=== PATIENT | male | born 1940 | race Caucasian/White ===

== ENCOUNTER → 2017-10-16 08:15 | Outpatient (CLI) | payer MEDICARE, OTHER, SELFPAY ==
[2017-01-21 09:20] VITALS: BMI 26.8
[2017-10-16 08:47] LABS: Absolute Lymphocyte Count 1.48 X10^3/ul (0.83-4.51); Absolute Neutrophil Count 5.4 X10^3/uL (2.0-7.7); Basophil# 0.02 X10^3/uL; Basophil% 0.2 % (0-1); Eosinophil# 0.26 X10^3/uL; Eosinophils% 3.2 % (0-5); Hematocrit 48.7 % (40-54); Lymphocyte # 1.48 X10^3/ul (4.0); Lymphocyte % 18.5 % (19-41); Mean Corp Hgb Conc 32.9 g/gl (32-36); Mean Corpuscular Hgb 29.6 pg (27.0-32.0); Mean Corpuscular Volume 90.2 fL (80-94); Mean Platelet Vol. 12.1 fl (6.2-12.0); Monocyte# 0.81 X10^3/uL; Monocyte% 10.1 % (0-10); Neutrophil # 5.44 X10^3/uL (2.7-7.7); Neutrophil % 67.9 % (47-70); Platelet Count 145 K/mm3 (150-450); RBC Distribution Width CV 14.9 % (11.6-14.6); RBC Distribution Width SD 48.6 fl (35.1-43.9)
[2017-10-16 08:48] LABS: POSITIVE COUNT NO; POSITIVE DIFFERENTIAL NO; POSITIVE MORPHOLOGY NO
[2017-10-16 09:09] LABS: Microalbumin,Random Urine 11.8 mg/L (NO RANGE EST.); Microalbumin:Creatinine Ratio 7.1 mg/g CRE (<30 mg/g CRE)
[2017-10-16 09:09] LABS: Hemoglobin A1c 6.3 % (4.2-6.3)
[2017-10-16 09:25] LABS: ALB/GLOB Ratio 0.9 RATIO (0.9-2.4); AST(SGOT) 26 U/L (15-37); Alanine Aminotransfer ALT/SGPT 30 U/L (16-61); Albumin, Serum 3.9 g/dL (3.2-5.0); Alkaline Phosphatase 76 U/L (45-117); Anion Gap 8 (5-15); BUN 31 mg/dL (7-18); BUN/Creat Ratio 25.6 RATIO (10-20); Bilirubin, Direct 0.27 mg/dL (0.00-0.30); Calcium,Total 9.8 mg/dL (8.5-10.1); Chloride 101 mmol/L (98-107); Cholesterol 90 mg/dL (200); Creatinine, Serum 1.21 mg/dL (0.70-1.30); EST Glomerular Filtration Rate 62 mL/min (>60); Est Glom Filt Rate - Afr Amer 74 mL/min (>60); Globulin 4.4 g/dL (2.2-4.2); Glucose 122 mg/dL (74-106); High Density Lipoprotein 36 mg/dL; Potassium 4.3 mmol/L (3.5-5.1); Protein, Total 8.3 g/dL (6.4-8.2); Sodium Level 139 mmol/L (136-145); T4 Free Direct 1.24 ng/dL (0.76-1.46); Thyroid Stim Hormone (TSH) 2.27 uIU/mL (0.358-3.74); Triglycerides 98 mg/dL; Very Low Density Lipoprotein 20 mg/dL (5-40)
== END ==
PROVIDERS: Internal Medicine Cardiovascular Disease; Family Provider Family Medicine; PCP Family Medicine; Visit Provider Family Medicine
DX: E11.22 Type 2 diabetes mellitus with diabetic chronic kidney disease (principal); E03.9 Hypothyroidism, unspecified; E78.00 Pure hypercholesterolemia, unspecified
CPT/HCPCS: 36415; 80053; 80061; 82043; 82248; 82570; 83036; 84439; 84443; 85025

== ENCOUNTER → 2018-04-08 08:02 | Outpatient (CLI) | payer MEDICARE, OTHER, SELFPAY ==
[2017-01-21 09:20] VITALS: BMI 26.8
[2018-04-08 08:47] LABS: AST(SGOT) 28 U/L (15-37); Alanine Aminotransfer ALT/SGPT 29 U/L (16-61); Albumin, Serum 3.8 g/dL (3.2-5.0); Alkaline Phosphatase 73 U/L (45-117); Bilirubin, Direct 0.19 mg/dL (0.00-0.30); Cholesterol 88 mg/dL (200); High Density Lipoprotein 40 mg/dL; Protein, Total 7.8 g/dL (6.4-8.2); Triglycerides 85 mg/dL; Very Low Density Lipoprotein 17 mg/dL (5-40)
== END ==
PROVIDERS: Family Provider Family Medicine; PCP Family Medicine; Visit Provider Internal Medicine Cardiovascular Disease
DX: E78.5 Hyperlipidemia, unspecified (principal); Z79.899 Other long term (current) drug therapy
CPT/HCPCS: 36415; 80061; 80076

== ENCOUNTER → 2018-07-30 08:00 | Outpatient (CLI) | payer MEDICARE, OTHER, SELFPAY ==
[2017-01-21 09:20] VITALS: BMI 26.8
[2018-07-30 09:35] LABS: Absolute Lymphocyte Count 1.75 X10^3/ul (0.83-4.51); Basophil# 0.01 X10^3/uL; Basophil% 0.1 % (0-1); Eosinophil# 0.25 X10^3/uL; Eosinophils% 2.9 % (0-5); Hematocrit 48.5 % (40-54); Hemoglobin 15.8 g/dl (13.0-16.5); Lymphocyte # 1.75 X10^3/ul (4.0); Lymphocyte % 20.1 % (19-41); Mean Corp Hgb Conc 32.6 g/gl (32-36); Mean Corpuscular Hgb 30.2 pg (27.0-32.0); Mean Corpuscular Volume 92.6 fL (80-94); Mean Platelet Vol. 11.9 fl (6.2-12.0); Neutrophil # 5.97 X10^3/uL (2.7-7.7); Neutrophil % 68.7 % (47-70); Platelet Count 163 K/mm3 (150-450); RBC Distribution Width CV 13.4 % (11.6-14.6); RBC Distribution Width SD 44.3 fl (35.1-43.9); Red Blood Count 5.24 M/mm3 (4.6-6.2); White Blood Count 8.7 K/mm3 (4.4-11.0)
[2018-07-30 09:45] LABS: POSITIVE COUNT NO; POSITIVE DIFFERENTIAL NO; POSITIVE MORPHOLOGY NO
[2018-07-30 09:54] LABS: Microalbumin,Random Urine 16.9 mg/L (NO RANGE EST.); Microalbumin:Creatinine Ratio 11.4 mg/g CRE (<30 mg/g CRE)
[2018-07-30 10:09] LABS: ALB/GLOB Ratio 0.8 RATIO (0.9-2.4); AST(SGOT) 27 U/L (15-37); Alanine Aminotransfer ALT/SGPT 34 U/L (16-61); Albumin, Serum 3.9 g/dL (3.2-5.0); Alkaline Phosphatase 81 U/L (45-117); Anion Gap 9 (5-15); BUN 30 mg/dL (7-18); BUN/Creat Ratio 28.3 RATIO (10-20); Calcium,Total 9.8 mg/dL (8.5-10.1); Chloride 99 mmol/L (98-107); Creatinine, Serum 1.06 mg/dL (0.70-1.30); EST Glomerular Filtration Rate 72 mL/min (>60); Est Glom Filt Rate - Afr Amer 87 mL/min (>60); Globulin 4.6 g/dL (2.2-4.2); Glucose 127 mg/dL (74-106); Potassium 4.3 mmol/L (3.5-5.1); Protein, Total 8.5 g/dL (6.4-8.2); Sodium Level 139 mmol/L (136-145); T4 Free Direct 1.22 ng/dL (0.76-1.46); Thyroid Stim Hormone (TSH) 1.46 uIU/mL (0.358-3.74)
== END ==
PROVIDERS: Family Provider Family Medicine; PCP Family Medicine; Referring Provider Family Medicine; Visit Provider Family Medicine
DX: E11.22 Type 2 diabetes mellitus with diabetic chronic kidney disease (principal)
CPT/HCPCS: 36415; 80053; 82043; 82570; 83036; 84439; 84443; 85025

== ENCOUNTER → 2018-09-12 08:15 | Outpatient (CLI) | payer MEDICARE, OTHER, SELFPAY ==
[2017-01-21 09:20] VITALS: BMI 26.8
[2018-09-12 09:05] LABS: Anion Gap 6 (5-15); BUN 29 mg/dL (7-18); BUN/Creat Ratio 26.9 RATIO (10-20); Calcium,Total 9.6 mg/dL (8.5-10.1); Chloride 101 mmol/L (98-107); Creatinine, Serum 1.08 mg/dL (0.70-1.30); EST Glomerular Filtration Rate 70 mL/min (>60); Est Glom Filt Rate - Afr Amer 85 mL/min (>60); Glucose 232 mg/dL (74-106); Potassium 4.1 mmol/L (3.5-5.1); Sodium Level 138 mmol/L (136-145)
== END ==
PROVIDERS: Family Provider Family Medicine; PCP Family Medicine; Referring Provider Physician Assistant Medical; Visit Provider Physician Assistant Medical
DX: I47.1 Supraventricular tachycardia (principal); Z95.810 Presence of automatic (implantable) cardiac defibrillator
CPT/HCPCS: 36415; 80048; 83735; 84443

== ENCOUNTER → 2018-10-14 08:27 | Outpatient (CLI) | payer MEDICARE, OTHER, SELFPAY ==
[2017-01-21 09:20] VITALS: BMI 26.8
[2018-09-15 09:33] VITALS: BMI 24.1
[2018-10-14 11:07] LABS: AST(SGOT) 22 U/L (15-37); Alanine Aminotransfer ALT/SGPT 24 U/L (16-61); Albumin, Serum 3.9 g/dL (3.2-5.0); Alkaline Phosphatase 80 U/L (45-117); Bilirubin, Direct 0.25 mg/dL (0.00-0.30); Cholesterol 93 mg/dL (200); Globulin 4.4 g/dL (2.2-4.2); High Density Lipoprotein 33 mg/dL; Protein, Total 8.3 g/dL (6.4-8.2); Triglycerides 125 mg/dL; Very Low Density Lipoprotein 25 mg/dL (5-40)
== END ==
PROVIDERS: Family Provider Family Medicine; PCP Family Medicine; Referring Provider Internal Medicine Cardiovascular Disease; Visit Provider Internal Medicine Cardiovascular Disease
DX: E78.5 Hyperlipidemia, unspecified (principal)
CPT/HCPCS: 36415; 80061; 80076

== ENCOUNTER → 2019-01-06 12:30 | Outpatient (CLI) | payer MEDICARE, OTHER, SELFPAY ==
[2017-01-21 09:20] VITALS: BMI 26.8
[2018-10-21 14:13] VITALS: BMI 24.9
[2019-01-06 13:35] LABS: Glucose 149 mg/dL (74-106)
[2019-01-06 13:36] LABS: ALB/GLOB Ratio 0.8 RATIO (0.9-2.4); AST(SGOT) 32 U/L (15-37); Alanine Aminotransfer ALT/SGPT 32 U/L (16-61); Albumin, Serum 3.5 g/dL (3.2-5.0); Alkaline Phosphatase 116 U/L (45-117); BUN 33 mg/dL (7-18); BUN/Creat Ratio 25.6 RATIO (10-20); Calcium,Total 9.8 mg/dL (8.5-10.1); Chloride 100 mmol/L (98-107); Creatinine, Serum 1.29 mg/dL (0.70-1.30); EST Glomerular Filtration Rate 57 mL/min (>60); Est Glom Filt Rate - Afr Amer 69 mL/min (>60); Globulin 4.6 g/dL (2.2-4.2); Potassium 4.3 mmol/L (3.5-5.1); Protein, Total 8.1 g/dL (6.4-8.2); Sodium Level 138 mmol/L (136-145)
[2019-01-06 13:37] LABS: Anion Gap 7 (5-15)
== END ==
PROVIDERS: Physician Assistant Medical; Family Provider Family Medicine; PCP Family Medicine; Referring Provider Internal Medicine Cardiovascular Disease; Visit Provider Internal Medicine Cardiovascular Disease
DX: I25.10 Atherosclerotic heart disease of native coronary artery without angina pectoris (principal); I48.0 Paroxysmal atrial fibrillation; I47.1 Supraventricular tachycardia; I47.2 Ventricular tachycardia; I43 Cardiomyopathy in diseases classified elsewhere; Z95.810 Presence of automatic (implantable) cardiac defibrillator
CPT/HCPCS: 36415; 80053

== ENCOUNTER 2019-01-08 21:38 | Inpatient (IN) | payer MEDICARE, OTHER, SELFPAY ==
[2017-01-21 09:20] VITALS: BMI 26.8
[2018-10-21 14:13] VITALS: BMI 24.9
[2019-01-08 21:40] VITALS: BP 107/65; PULSE 135; RESP 18; TEMP 36.1; O2SAT 95; BMI 23.0
[2019-01-08 22:32] VITALS: BP 131/83; PULSE 80; RESP 24; O2SAT 96
--- NOTE | 2019-01-08 22:34 | ED.RN ---
PULLED OLD EKGS PER DR MERAZ
--- NOTE | 2019-01-08 22:36 | RAD_ITS ---
STUDY: X-RAY CHEST REASON FOR EXAM: Male, 78 years old. Shortness of breath TECHNIQUE: Single frontal view COMPARISON: January 19, 2017 FINDINGS: Left-sided pacemaker is noted. The lungs are expanded. Interstitial prominence. Stable right upper lobe nodular density measuring 1 cm. Apical pleural thickening and granulomatous bilaterally. Possible right pleural calcified plaques. Borderline size heart. Normal mediastinum and derian. Slightly prominent central pulmonary arteries. Calcified aortic arch and descending thoracic aorta. Degenerative changes of the visualized thoracic spine. Normal visualized ribs, clavicles, and shoulders. Probable small hiatal hernia. RAD/Chest 1 View (Portable) IMPRESSION: Interstitial prominence. Stable right upper lobe nodular density measuring 1 cm. Apical pleural thickening and granulomatous bilaterally. Possible right pleural calcified plaques. Study prominent central pulmonary vasculature. Borderline size heart. Small hiatal hernia. Electronically Signed: Edson Dominguez DO at 23:06 EDT Tel [phone], Service support ,
--- NOTE | 2019-01-08 22:36 | EKG12_ITS ---
Test Reason : REPEAT Blood Pressure : / mmHG Vent. Rate : 077 BPM Atrial Rate : 077 BPM P-R Int : 194 ms QRS Dur : 144 ms QT Int : 456 ms P-R-T Axes : 041 161 022 degrees QTc Int : 516 ms Atrial-sensed ventricular-paced rhythm Biventricular pacemaker detected Abnormal ECG Confirmed by BERNADETTE YANEZ, CARLOS ([id number]), food editor JAMAAL ROMANO ([id number]) on 01/13/2019 1:41:01 PM Referred By: Carlos Langley Confirmed By:CARLOS LANGLEY MD
--- NOTE | 2019-01-08 22:37 | EKG12_ITS ---
Test Reason : TACHYCARDIA Blood Pressure : / mmHG Vent. Rate : 134 BPM Atrial Rate : 134 BPM P-R Int : 144 ms QRS Dur : 186 ms QT Int : 338 ms P-R-T Axes : -28 -28 150 degrees QTc Int : 504 ms Atrial Tachycardia with ventricular pacing Left ventricular hypertrophy with QRS widening and repolarization abnormality Abnormal ECG Confirmed by BERNADETTE YANEZ, CARLOS ([id number]), editor school photograph JAMAAL ROMANO ([id number]) on 01/13/2019 1:41:52 PM Referred By: Carlos Langley Confirmed By:CARLOS LANGLEY MD
[2019-01-08 23:13] VITALS: BP 115/72; PULSE 68; RESP 19; O2SAT 98
[2019-01-08 23:19] LABS: Absolute Lymphocyte Count 0.83 X10^3/ul (0.83-4.51); Absolute Neutrophil Count 6.2 X10^3/uL (2.0-7.7); Eosinophil# 0.06 X10^3/uL; Eosinophils% 0.8 % (0-5); Hematocrit 47.2 % (40-54); Hemoglobin 15.6 g/dl (13.0-16.5); Lymphocyte # 0.83 X10^3/ul (4.0); Lymphocyte % 10.7 % (19-41); Mean Corp Hgb Conc 33.1 g/gl (32-36); Mean Corpuscular Hgb 29.2 pg (27.0-32.0); Mean Corpuscular Volume 88.2 fL (80-94); Mean Platelet Vol. 11.9 fl (6.2-12.0); Monocyte# 0.65 X10^3/uL; Monocyte% 8.4 % (0-10); POSITIVE COUNT NO; POSITIVE DIFFERENTIAL NO; POSITIVE MORPHOLOGY NO; Platelet Count 174 K/mm3 (150-450); RBC Distribution Width CV 14.8 % (11.6-14.6); Red Blood Count 5.35 M/mm3 (4.6-6.2); White Blood Count 7.8 K/mm3 (4.4-11.0)
[2019-01-08 23:36] LABS: Anion Gap 8 (5-15); BUN 37 mg/dL (7-18); Calcium,Total 9.4 mg/dL (8.5-10.1); Chloride 100 mmol/L (98-107); Creatinine, Serum 1.32 mg/dL (0.70-1.30); EST Glomerular Filtration Rate 55 mL/min (>60); Est Glom Filt Rate - Afr Amer 67 mL/min (>60); Estimated Creatinine Clearance 48.68 ml/min; Glucose 167 mg/dL (74-106); Potassium 4.1 mmol/L (3.5-5.1); Sodium Level 135 mmol/L (136-145)
[2019-01-08 23:46] LABS: BNP,B-Type NATRIURETIC PEPTIDE 1139.1 pg/mL (0-100)
--- NOTE | 2019-01-08 23:58 | ED.RN ---
called [facility] [employer] [facility] [place] at this time for interrupter results. We have not received them at this time
[2019-01-09] VITALS (17 sets, daily range): BP systolic 101–125; BP diastolic 68–77; PULSE 62–79; RESP 12–26; TEMP 35.9–36.9; O2SAT 86–99; BMI 22.8
[2019-01-09] MEDS: Furosemide 40 MG/4 ML Vial IV ×3 (00:04→17:16)
--- NOTE | 2019-01-09 00:49 | ED.DCSUM_ITS ---
- ER Visit Summary Date of Service: 01/09/19 Chief Complaint: Short of breath, weakness History of Present Illness: The patient is a 78 M with a 1 to 2-week history of weakness, shortness of breath is worse on exertion. He denies chest pain. Patient has a history of paroxysmal A. fib, SVT, and V. tach. He does have an AICD. Patient states that in the past he been on amiodarone but he did not like the way it made him feel. Over the past several weeks he has had tachycardic arrhythmias and was restarted on amiodarone approximately 2 weeks ago. 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 Dose was cut in half, but not stopped. Physical Examination: Blood pressure is 107/65, temperature 96.9, heart rate 135, respiratory rate 18, pulse ox 95% on room air. Patient is a cachectic appearing elderly gentleman. He sitting upright in bed in no acute distress. He speaking full sentences. Heart is regular rate and rhythm at the time of my exam. Heart rate is currently in the 70s. Lung sounds are grossly clear. Abdomen is soft and nontender. Test Results: EKG was a wide-complex tachycardia at 134. EKG is repeated at the time of my examination and rhythm is paced at 77 with no sign of acute ischemia. Portable chest x-ray shows interstitial prominence. Stable right upper lobe nodules are noted. CBC is unremarkable. Chemistry studies reveal a glucose of 167, BUN 37, creatinine 1.32. Troponin is 0.031. BNP is 1139. Emergency Department Course and Treatment: Pacemaker was interrogated. When I spoke with the rep she stated he had been having some PMT. He last required a PT on the . Rhythm is paced 91% of the time. Patient is given 40 mg of IV Lasix. I spoke with the hospitalist regarding observation overnight. We will have cardiology see him in the morning to see about adjusting his medications. Treatment Plan: [] Disposition: Admit Impression: 1. CHF 2. Intermittent tachycardia This note was generated with [employer] software. It may contain incorrect words, spelling, and punctuation that were not noted in review of the chart prior to signing ED Disposition - Plan for ED Patient: Disposition: Acute Care [facility]
--- NOTE | 2019-01-09 00:57 | HP.PCM_ITS ---
Problem List (1) Acute exacerbation of CHF (congestive heart failure) Status: Acute (2) Dysrhythmia Status: Acute History of Present Illness Date of Admission: 01/09/19 Chief Complaint: SOB The patient is a 78 year old M with a significant history of paroxysmal A. fib; diabetes mellitus; nonischemic cardiomyopathy; JACE on CPAP; congestive heart failure; hypertension; diabetes mellitus; non-ST elevation [place]; SVT; ventricular tachycardia; AICD placement who came to the emergency department with shortness of breath. His symptoms started with a severe fatigue after moving/packing about 2 weeks ago. Also he reports weakness; and palpitations. Also, he noted rapid fast beating of his heart and low beating of his heart. At the emergency department EKG initially showed wide complex tachycardia; and later a paced rhythm. Pacemaker interrogation showed PMT. Reportedly on December 28 2018 his pacemaker showed SVT and VT requiring the pacemaker interruption to take him off that rhythm. Because patient thought that his tiredness was from amiodarone his amiodarone dose was cut into half. He reports that many years ago Amiodarone caused him to be dizzy; and was attributing his recent tiredness to amiodarone. Patient reports chronic orthopnea. Further, he reports paroxysmal nocturnal dyspnea. At the Emergency department patient was noted to have elevated BNP and chest x- ray showed bilateral infiltrates. Patient is on home Lasix p.o. At the emergency department patient was given IV Lasix. Past Medical History Past Medical History (Chronic Problems): Chronic Problems (Last Reviewed 01/09/19 @ 02:19 by Devon Campbell MD) Automatic implantable cardiac defibrillator in situ (Chronic) CAD (coronary artery disease) (Chronic) Stent to LAD 2017 Cardiomyopathy in disease classified elsewhere (Chronic) EF 35% Left bundle branch block (Chronic) Carotid bruit (Chronic) Automatic implantable cardioverter-defibrillator problem (Chronic) Supraventricular tachycardia (Chronic) Ventricular tachycardia (Chronic) Other secondary pulmonary hypertension (Chronic) Presence of coronary angioplasty implant and graft (Chronic) Lt Heart cath with PCI-SNOW-LAD 01/18/17 NSTEMI (non-ST elevated myocardial infarction) (Chronic) Atrial tachycardia, paroxysmal (Chronic) HTN (hypertension) (Chronic) Paroxysmal a-fib (Chronic) S/P ablation of atrial fibrillation (Chronic) EPS with Ablation 06/23 CHF (congestive heart failure) (Chronic) Dyslipidemia (Chronic) Diabetes mellitus (Chronic) Medical History: Medical History (Last Reviewed 01/09/19 @ 06:40 by Devon Campbell MD) CAD (coronary artery disease) (Chronic) I25.10 Stent to LAD 2017 Cardiomyopathy in disease classified elsewhere (Chronic) I43 EF 35% Left bundle branch block (Chronic) I44.7 Carotid bruit (Chronic) R09.89 Automatic implantable cardioverter-defibrillator problem (Chronic) Z95.810 Supraventricular tachycardia (Chronic) I47.1 Ventricular tachycardia (Chronic) I47.2 Other secondary pulmonary hypertension (Chronic) I27.29 NSTEMI (non-ST elevated myocardial infarction) (Chronic) I21.4 Atrial tachycardia, paroxysmal (Chronic) HTN (hypertension) (Chronic) I10 Paroxysmal a-fib (Chronic) I48.0 CHF (congestive heart failure) (Chronic) I50.9 Dyslipidemia (Chronic) E78.5 Diabetes mellitus (Chronic) E11.9 Tachycardia R00.0 Allergies crestor Adverse Reaction (Severe, Uncoded 01/08/19 21:40) Myalgias Home Medications: Ambulatory Orders Medication Instructions Recorded [place]-3 Fatty Acids/Fish Oil 2 ea PO BID 10/23/15 [[place] 3 1,000 mg Softgel] Rivastigmine Tartrate 4.5 mg PO BID 10/23/15 [Rivastigmine] Tamsulosin HCl [Flomax] 0.4 mg PO QHS 10/23/15 Aspirin E.C. [Ecotrin] 81 mg PO DAILY@0800 #30 tab 01/21/17 ticagrelor 90 mg tablet 90 mg PO BID #60 tab 03/05/18 atorvastatin 40 mg tablet 40 mg PO QHS #30 tab 03/24/18 furosemide 40 mg tablet 40 mg PO DAILY #90 tab 07/07/18 cholecalciferol (vitamin D3) 1,000 2,000 unit PO DAILY cap 09/15/18 unit capsule coenzyme Q10 100 mg capsule 100 mg PO DAILY 09/15/18 esomeprazole magnesium 20 mg 20 mg PO DAILY PRN cap 09/15/18 capsule,delayed release levothyroxine 100 mcg tablet 100 mcg PO DAILY 09/15/18 vitamin B complex tablet 1 tab PO DAILY 09/15/18 carvedilol 25 mg tablet 25 mg PO BID #180 tab 10/28/18 Amiodarone HCl [Cordarone] 200 mg PO DAILY 01/08/19 Surgical History: Surgical History (Last Reviewed 01/09/19 @ 06:40 by Devon Campbell MD) Automatic implantable cardiac defibrillator in situ (Chronic) Z95.810 Presence of coronary angioplasty implant and graft (Chronic) Z95.5 Lt Heart cath with PCI-SNOW-LAD 01/18/17 S/P ablation of atrial fibrillation (Chronic) Z98.890, Z86.79 EPS with Ablation 06/23 Surgical History: appendectomy, herniorrhaphy, - - ICD placement, ablation for SVT Lives: Spouse/ Significant Other Smoking Status: Never smoker Alcohol: None - *Family History Maternal Family History: Family History (Last Reviewed 01/09/19 @ 06:40 by Devon Campbell MD) Father CVA (cerebral vascular accident) Diabetes Hypertension HLD (hyperlipidemia) Mother CVA (cerebral vascular accident) Hypertension HLD (hyperlipidemia) Brother Diabetes Brother Diabetes Sister Diabetes Hypertension Sister Hypertension Daughter Epilepsy History Items: - - Noncontributory. Paternal Family History: Family History (Last Reviewed 01/09/19 @ 06:40 by Devon Campbell MD) Father CVA (cerebral vascular accident) Diabetes Hypertension HLD (hyperlipidemia) Mother CVA (cerebral vascular accident) Hypertension HLD (hyperlipidemia) Brother Diabetes Brother Diabetes Sister Diabetes Hypertension Sister Hypertension Daughter Epilepsy History Items: No pertinent history Review of Systems Constitutional: Reports: Anorexia, Weakness, Weight Change - Reportedly he has lost about 40 pounds in 2 years., Fatigue. Denies: Chills, Fever HEENT: Denies: Head Aches, Sinus Congestion, Sinus Drainage Cardiovascular: Reports: Orthopnea, Palpitations, Paroxysmal Noc. Dyspnea. Denies: Chest Pain Respiratory: Reports: Shortness of breath at rest. Denies: Cough, Sputum production Gastrointestinal: Denies: Abdominal Pain, Nausea, Vomiting Genitourinary: Denies: Dysuria Musculoskeletal: Denies: Joint Pain, Joint Tenderness Skin: Denies: Rash, Wounds Neurological: Denies: Numbness, Tingling, Focal weakness Psychiatric: Denies: Anxiety, Depression, Homicidal Ideations, Suicidal Ideations Hematologic/ Lymphatic: Denies: Easy Bruising, Easy Bleeding VTE Information - Inpt Only VTE Present on Admission: No VTE Mechan Device Prophylaxis: None VTE Pharm Prophylaxis ordered?: Yes Patient Problems: Active and Suspected Problems (Last Reviewed 01/09/19 @ 02:19 by Devon Campbell MD) Acute exacerbation of CHF (congestive heart failure) (Acute) Dysrhythmia (Acute) - Physical Exam General: Alert, Oriented x3, Cooperative HEENT: Atraumatic, PERRLA, EOMI, Normocephalic Neck: Supple, No JVD, Negative Carotid Bruits Lungs: Rales - bibasilar Cardiovascular: Regular rate, No murmurs Abdomen: Bowel Sounds Present, Soft, Non Tender Extremities: No edema, Capillary Refill Less than 3 Seconds Skin: No rashes, No breakdown Musculoskeletal: No Tenderness to Palpation of Joints or Extremities Neurological: Cranial nerves II-XII grossly intact Psych/Mental Status: Normal Affect, Appropriate Vital Signs Temp Pulse Resp BP Pulse Ox 96.9 F L 67 18 115/73 97 01/08/19 21:40 01/09/19 00:04 01/09/19 00:04 01/09/19 00:04 01/09/19 00:04 Oxygen Flow Rate (L/min) 2 Oxygen Delivery Method Nasal Cannula Weight: 77.111 kg Body Mass Index (BMI) 23.0 Laboratory Tests Past 24 Hrs 01/08/19 01/08/19 01/08/19 23:10 23:10 23:10 WBC 7.8 RBC 5.35 Hgb 15.6 Hct 47.2 MCV 88.2 MCH 29.2 MCHC 33.1 RDW 14.8 H RDW Differential 47.0 H Plt Count 174 MPV 11.9 Immature Gran % (Auto) 0.100 Neut % (Auto) 80.0 H Lymph % (Auto) 10.7 L [place] % (Auto) 8.4 Eos % (Auto) 0.8 Baso % (Auto) 0.0 Absolute Neuts (auto) 6.2 Absolute Lymphs (auto) 0.83 Total Counted Not Reportable Sodium 135 L Potassium 4.1 Chloride 100 Carbon Dioxide 27.0 Anion Gap 8 BUN 37 H Creatinine 1.32 H Estim Creat Clear Calc 48.68 Est GFR (MDRD) Af Amer 67 Est GFR (MDRD) Non-Af 55 L BUN/Creatinine Ratio 28.0 H Glucose 167 H Calcium 9.4 Troponin I 0.031 B-Natriuretic Peptide 1139.1 H Assessment/Plan All Active Problems (Last Reviewed 01/09/19 @ 02:19 by Devon Campbell MD) Acute exacerbation of CHF (congestive heart failure) (Acute) Dysrhythmia (Acute) Mid back pain (Acute) Shortness of breath (Acute) The patient is a 78 year old M with a significant history of paroxysmal A. fib; nonischemic cardiomyopathy; JACE on CPAP; congestive heart failure; hypertension; diabetes mellitus; non-ST elevation [place]; SVT; ventricular tachycardia; AICD placement who came to the emergency department with shortness of breath; weakness; tiredness and was found to have wide complex tachycardia; elevated BNP and pulmonary infiltrate consistent with dysrhythmia and acute exacerbation of his underlying CHF. Acute exacerbation of CHF. BNP on admission was 1,139.1. His BNP on 01/18/2017 was 362.2. Other previous BNP has been unremarkable. Patient with hyponatremia of 135 indicating fluid overload. CXR showed bilateral pulmonary infiltrate On home Lasix 40 mg p.o. daily. In the emergency department patient received Lasix 40 mg IV x1. We will continue patient on Lasix 40 mg IV twice daily and supplemental potassium. Carvedilol continued. Cardiology consulted. Fluid restriction Intake and output ordered Daily weight Echocardiogram ordered We will order echo showed echocardiogram on 01/21/2017 showed an ejection fraction of 35%; moderately severe segmental systolic dysfunction. [place]: Akinetic. Mid anteroseptal: Akinetic. Dysrhythmia Pacemaker in place Patient requested that amiodarone be changed to 100mg bid instead of current 200mg daily. Discussed with patient and he agreed that we do Amiodarone 200mg daily and consult cardiology. Hypothyroidism Synthroid continued Dementia Rivastigmine continued BPH Tamsulosin continued. PAF On ticagrelor, continued. ASA continued HLD Lipitor continued JACE CPAP ordered. DVT prophylaxis Subcutaneous Lovenox ordered Code Visit Inpatient E&M: 92059 Init Hosp L3
[2019-01-09 02:47] LABS: Magnesium 2.1 mg/dL (1.6-2.6)
[2019-01-09] MEDS: Levothyroxine 100 MCG Tablet PO (06:28)
[2019-01-09 06:47] LABS: Anion Gap 9 (5-15); BUN 32 mg/dL (7-18); BUN/Creat Ratio 27.8 RATIO (10-20); Calcium,Total 9.2 mg/dL (8.5-10.1); Chloride 100 mmol/L (98-107); Creatinine, Serum 1.15 mg/dL (0.70-1.30); EST Glomerular Filtration Rate 65 mL/min (>60); Est Glom Filt Rate - Afr Amer 79 mL/min (>60); Estimated Creatinine Clearance 55.36 ml/min; Glucose 110 mg/dL (74-106); Potassium 3.8 mmol/L (3.5-5.1); Sodium Level 137 mmol/L (136-145)
--- NOTE | 2019-01-09 07:51 | CASEMGMT ---
Patient has a Healthcare POA and Healthcare LW in E-chart. SW printed and will place in paper chart. Flora OLIVER MSW
[2019-01-09] MEDS: Acetaminophen 325 MG Tablet 650 MG PO ×2 (08:39→18:07)
[2019-01-09] MEDS: Glucerna Shake 120 ML LIQUID PO ×2 (08:39→17:16)
[2019-01-09] MEDS: Aspirin E.C. 81 MG Tablet PO (08:39)
[2019-01-09] MEDS: Omega-3 Acid Ethyl Esters 1 GM Capsule 2 GM PO ×2 (09:56→21:29)
[2019-01-09] MEDS: Rivastigmine Tartrate 1.5 MG Capsule 4.5 MG PO ×2 (09:56→21:29)
[2019-01-09] MEDS: Carvedilol 25 MG Tablet PO ×2 (09:57→21:29)
[2019-01-09] MEDS: Enoxaparin 40 MG/0.4 ML Syringe SC (09:57)
[2019-01-09] MEDS: Vitamin B Comp W-C Capsule 1 CAP PO (09:57)
[2019-01-09] MEDS: TICAGRELOR 90 MG TABLET PO ×2 (09:57→21:28)
[2019-01-09] MEDS: Amiodarone 200 MG Tablet PO (09:57)
--- NOTE | 2019-01-09 11:04 | PCM.CONS.C ---
Problem List (1) Dysrhythmia Status: Acute Reason for Consult Date of Consultation: 01/09/19 History of Present Illness: The patient is a 78 year old M with past medical history significant for nonischemic cardiomyopathy, hypertension, dyslipidemia and coronary artery disease. He has a biventricular ICD in place. The patient presented to the emergency room with complaints of increasing shortness of breath over the last few weeks. According to him, he gets short of breath on walking 8 to 10 feet. Denies any ankle edema. Minimal nonproductive cough. No fevers or chills. No chest pains. He sleeps with 2 pillows under his head at night and this has not changed recently. Some paroxysmal nocturnal dyspnea. Per patient, he has not been careful with his fluid intake over the last few weeks. Also complained of palpitations. According to him, this is a chronic problem for him but recently more frequent. The palpitations lasts for 10 to 15 seconds. Terminate on their own. He has been investigated for it in the past and was noted to have pacemaker mediated tachycardia. His ICD settings have been changed for that but he still continues to have the palpitations. Denies any shock from the ICD. Denies any syncope or presyncope. [] Past Medical History Allergies/Adverse Reactions: Allergies crestor Adverse Reaction (Severe, Uncoded 01/08/19 21:40) Myalgias Home Medications: Ambulatory Orders Medication Instructions Recorded [place]-3 Fatty Acids/Fish Oil 2 ea PO BID 10/23/15 [[place] 3 1,000 mg Softgel] Rivastigmine Tartrate 4.5 mg PO BID 10/23/15 [Rivastigmine] Tamsulosin HCl [Flomax] 0.4 mg PO QHS 10/23/15 Aspirin E.C. [Ecotrin] 81 mg PO DAILY@0800 #30 tab 01/21/17 ticagrelor 90 mg tablet 90 mg PO BID #60 tab 03/05/18 atorvastatin 40 mg tablet 40 mg PO QHS #30 tab 03/24/18 furosemide 40 mg tablet 40 mg PO DAILY #90 tab 07/07/18 cholecalciferol (vitamin D3) 1,000 2,000 unit PO DAILY cap 09/15/18 unit capsule coenzyme Q10 100 mg capsule 100 mg PO DAILY 09/15/18 esomeprazole magnesium 20 mg 20 mg PO DAILY PRN cap 09/15/18 capsule,delayed release levothyroxine 100 mcg tablet 100 mcg PO DAILY 09/15/18 vitamin B complex tablet 1 tab PO DAILY 09/15/18 carvedilol 25 mg tablet 25 mg PO BID #180 tab 10/28/18 Amiodarone HCl [Cordarone] 200 mg PO DAILY 01/08/19 Past Medical History (Chronic Problems): Chronic Problems (Last Reviewed 01/09/19 @ 06:40 by Devon Campbell MD) Automatic implantable cardiac defibrillator in situ (Chronic) CAD (coronary artery disease) (Chronic) Stent to LAD 2016 Cardiomyopathy in disease classified elsewhere (Chronic) EF 35% Left bundle branch block (Chronic) Carotid bruit (Chronic) Automatic implantable cardioverter-defibrillator problem (Chronic) Supraventricular tachycardia (Chronic) Ventricular tachycardia (Chronic) Other secondary pulmonary hypertension (Chronic) Presence of coronary angioplasty implant and graft (Chronic) Lt Heart cath with PCI-SNOW-LAD 01/18/17 NSTEMI (non-ST elevated myocardial infarction) (Chronic) Atrial tachycardia, paroxysmal (Chronic) HTN (hypertension) (Chronic) Paroxysmal a-fib (Chronic) S/P ablation of atrial fibrillation (Chronic) EPS with Ablation 06/23 CHF (congestive heart failure) (Chronic) Dyslipidemia (Chronic) Diabetes mellitus (Chronic) Surgical History: appendectomy, herniorrhaphy, - - ICD placement, ablation for SVT - *Family History Maternal Family History: Family History (Last Reviewed 01/09/19 @ 06:40 by Devon Campbell MD) Father CVA (cerebral vascular accident) Diabetes Hypertension HLD (hyperlipidemia) Mother CVA (cerebral vascular accident) Hypertension HLD (hyperlipidemia) Brother Diabetes Brother Diabetes Sister Diabetes Hypertension Sister Hypertension Daughter Epilepsy History Items: - - Noncontributory. Paternal Family History: Family History (Last Reviewed 01/09/19 @ 06:40 by Devon Campbell MD) Father CVA (cerebral vascular accident) Diabetes Hypertension HLD (hyperlipidemia) Mother CVA (cerebral vascular accident) Hypertension HLD (hyperlipidemia) Brother Diabetes Brother Diabetes Sister Diabetes Hypertension Sister Hypertension Daughter Epilepsy History Items: No pertinent history Lives: Spouse/ Significant Other Smoking Status: Never smoker Alcohol: None Review of Systems - Review of Systems General: Denies: Fever, Chills Cardiovascular: Reports: Shortness of Breath, PND, Palpitations. Denies: Chest Discomfort, Orthopnea, Peripheral Edema, Near Syncope, Syncope Respiratory: Reports: Non Productive Cough. Denies: Cough, Hemoptysis Gastrointestinal: Denies: Jaundice, Nausea, Hematemesis Hematologic/ Lymphatic: Denies: Easy Brusing, Easy Bleeding Subjectve: Comfortable. No apparent distress. Objective: Vital Signs Temp Pulse Resp BP Pulse Ox 98.1 F 62 18 106/68 95 01/09/19 08:25 01/09/19 08:25 01/09/19 08:25 01/09/19 08:25 01/09/19 08:25 Oxygen Flow Rate (L/min) 2 Oxygen Delivery Method Nasal Cannula Weight: 76.4 kg Body Mass Index (BMI) 22.8 Intake and Output for Last 24 Hours 01/07/19 01/08/19 01/09/19 23:59 23:59 23:59 Intake Total 120 / 120 Output Total 375 / 375 Balance -255 / -255 General: Awake, Alert, Oriented x 3 Oral: Moist Mucosa Neck: Supple, Positive JVD Lungs: Diminished Danial Bases Cardiovascular: Normal S1, Normal S2 Murmur Murmur: - - 2/6 systolic murmur at apex Abdomen: Bowel Sounds Present, Soft Extremities: No edema Neurological: No Focal Motor or Sensory Deficit Psych/Mental Status: Appropriate 01/08/19 23:10: WBC 7.8, RBC 5.35, Hgb 15.6, Hct 47.2, MCV 88.2, MCH 29.2, MCHC 33.1, RDW 14.8 H, RDW Differential 47.0 H, Plt Count 174, MPV 11.9, Immature Gran % (Auto) 0.100, Neut % (Auto) 80.0 H, Lymph % (Auto) 10.7 L, [place] % (Auto) 8.4, Eos % (Auto) 0.8, Baso % (Auto) 0.0, Absolute Neuts (auto) 6.2, Total Counted Not Reportable 01/08/19 23:10: Sodium 135 L, Potassium 4.1, Chloride 100, Carbon Dioxide 27.0, Anion Gap 8, BUN 37 H, Creatinine 1.32 H, Est GFR (MDRD) Af Amer 67, Est GFR (MDRD) Non-Af 55 L, BUN/Creatinine Ratio 28.0 H, Glucose 167 H, Calcium 9.4, Troponin I 0.031 01/08/19 23:10: B-Natriuretic Peptide 1139.1 H 01/08/19 23:10: Magnesium 2.1 01/09/19 05:50: Sodium 137, Potassium 3.8, Chloride 100, Carbon Dioxide 28.0, Anion Gap 9, BUN 32 H, Creatinine 1.15, Est GFR (MDRD) Af Amer 79, Est GFR (MDRD) Non-Af 65, BUN/Creatinine Ratio 27.8 H, Glucose 110 H, Calcium 9.2 Rhythm: Normal sinus rhythm. Ventricular paced rhythm EKG: Normal sinus rhythm. Ventricular paced rhythm ECHO: Stress Test: Cardiac Cath: PCI: CT Surgery: Holter monitor: EPS: PPM: CXR: Chest CT Scan: Assessment/Plan 1. Acute on chronic systolic congestive heart failure. Functional class III. Continue diuresis. Add Aldactone. Monitor electrolytes. 2. Nonischemic cardiomyopathy status post by V ICD placement. Continue beta-blockers, Aldactone. Start on low-dose AMELIA inhibitor. Please note that previously he was started on AMELIA inhibitor which was discontinued because of borderline blood pressure. Monitor blood pressure. 3. Pacemaker mediated tachycardia. We will ask the pacemaker rep to adjust his PVARP. This has been tried in the past as well. If he continues, I recommend that he follow with EP as outpatient for possible AV griselda ablation. 4. History of coronary artery disease. 5. History of paroxysmal atrial fibrillation status post ablation. 6. History of hypertension
[2019-01-09 11:15] LABS: Bedside Glucose 104 mg/dL (70-110)
--- NOTE | 2019-01-09 11:20 | CASEMGMT ---
RN CM Assessment Presentation: CHF exacerbation Intro role of CM and purpose of RN CM assessment to patient in room. Pt is awake, alert and able to participate in assessment.. Demographics, PCP and Pharmacy verified. Pt states he is generally independent @ home, but is able to assist if needs arise. PCP: Dr. Noel Specialists: Dr. Langley Preferred Pharmacy: [facility] Insurance: [facility] Prescription Benefit: yes LNOK: , Yarelis Davey Living Arrangements: Lives in one story home with his , three steps into home. Pt states he is generally independent in ADL and does not use DME. Transportation: Family drives, pt states he does not. DME: walker, does not use. HHC: no Patient DC goals: Home DC PLAN: Home. PT/OT evaluations pending. Chris SHAW RN ACM
--- NOTE | 2019-01-09 16:57 | PCM.HOSP.N ---
Hospitalist Note Patient was seen and examined briefly today, I reviewed the aluminum siding installer consultation. I also talked with the patient's by phone who states that the patient uses CPAP at home, I asked her if she could bring the machine in for his use tonight and she can. We will continue with patient's IV diuresis and medication adjustment per cardiology, patient will be weaned from oxygen if possible.
[2019-01-09] MEDS: Atorvastatin Calcium 40 MG Tablet PO (21:27)
[2019-01-09] MEDS: Tamsulosin HCl 0.4 MG Capsule PO (21:28)
[2019-01-10] VITALS (8 sets, daily range): BP systolic 96–105; BP diastolic 54–65; PULSE 60–68; RESP 16; TEMP 36.4–36.8; O2SAT 86–98
[2019-01-10] MEDS: Levothyroxine 100 MCG Tablet PO (05:30)
[2019-01-10 07:04] LABS: Anion Gap 6 (5-15); BUN 35 mg/dL (7-18); BUN/Creat Ratio 27.6 RATIO (10-20); Calcium,Total 9.1 mg/dL (8.5-10.1); Chloride 102 mmol/L (98-107); Creatinine, Serum 1.27 mg/dL (0.70-1.30); EST Glomerular Filtration Rate 58 mL/min (>60); Est Glom Filt Rate - Afr Amer 70 mL/min (>60); Estimated Creatinine Clearance 50.07 ml/min; Glucose 99 mg/dL (74-106); Potassium 4.5 mmol/L (3.5-5.1); Sodium Level 138 mmol/L (136-145)
[2019-01-10] MEDS: Rivastigmine Tartrate 1.5 MG Capsule 4.5 MG PO (08:56)
[2019-01-10] MEDS: Aspirin E.C. 81 MG Tablet PO (08:56)
[2019-01-10] MEDS: Vitamin B Comp W-C Capsule 1 CAP PO (08:56)
[2019-01-10] MEDS: Omega-3 Acid Ethyl Esters 1 GM Capsule 2 GM PO (08:57)
[2019-01-10] MEDS: Furosemide 40 MG/4 ML Vial IV (08:57)
[2019-01-10] MEDS: Amiodarone 200 MG Tablet PO (08:57)
[2019-01-10] MEDS: TICAGRELOR 90 MG TABLET PO (08:57)
[2019-01-10] MEDS: Lisinopril 2.5 MG Tablet PO (08:58)
[2019-01-10] MEDS: Enoxaparin 40 MG/0.4 ML Syringe SC (08:58)
[2019-01-10] MEDS: Carvedilol 25 MG Tablet PO (08:58)
[2019-01-10] MEDS: Glucerna Shake 120 ML LIQUID PO ×2 (09:04→12:21)
[2019-01-10] MEDS: 0.9% NaCl Peripheral Flush Adult/Peds IV (09:08)
--- NOTE | 2019-01-10 09:19 | PCM.PN.CARD ---
Objective: Vital Signs Temp Pulse Resp BP Pulse Ox 97.5 F L 68 16 105/65 96 01/10/19 08:50 01/10/19 08:50 01/10/19 08:50 01/10/19 08:50 01/10/19 08:50 Oxygen Flow Rate (L/min) 2 Oxygen Delivery Method Nasal Cannula Weight: 76.3 kg Body Mass Index (BMI) 22.8 Intake and Output for Last 24 Hours 01/08/19 01/09/19 01/10/19 23:59 23:59 23:59 Intake Total 1080 / 1080 120 / 120 Output Total 1650 / 1650 400 / 400 Balance -570 / -570 -280 / -280 General: Healthy Appearing, Awake, Oriented x 3, No Acute Distress Oral: Moist Mucosa Neck: No JVD Lungs: Clear to auscultation Extremities: No edema 01/10/19 06:15: Sodium 138, Potassium 4.5, Chloride 102, Carbon Dioxide 30.0, Anion Gap 6, BUN 35 H, Creatinine 1.27, Est GFR (MDRD) Af Amer 70, Est GFR (MDRD) Non-Af 58 L, BUN/Creatinine Ratio 27.6 H, Glucose 99, Calcium 9.1 Rhythm: EKG: ECHO: Stress Test: Cardiac Cath: PCI: CT Surgery: Holter monitor: EPS: PPM: CXR: Chest CT Scan: Medical Necessity - Tobacco Use Smoking Status: Never smoker Assessment/Plan 1. Acute on chronic systolic congestive heart failure. Functional class III. Continue diuresis. Switch to p.o. Lasix. 2. Nonischemic cardiomyopathy status post bi-V ICD placement. Started on low-dose AMELIA inhibitor. 3. Pacemaker mediated tachycardia. Pacemaker settings changed.. This has been tried in the past as well. If he continues with PMT, I recommend that he follow with EP as outpatient for possible AV girselda ablation. 4. History of coronary artery disease. 5. History of paroxysmal atrial fibrillation status post ablation. 6. History of hypertension May discharge home today from cardiology standpoint. Recommend check serum creatinine and electrolytes in 2 to 3 days after discharge home.
--- NOTE | 2019-01-10 09:23 | PN.CARD_ITS ---
Objective: Vital Signs Temp Pulse Resp BP Pulse Ox 97.5 F L 68 16 105/65 96 01/10/19 08:50 01/10/19 08:50 01/10/19 08:50 01/10/19 08:50 01/10/19 08:50 Oxygen Flow Rate (L/min) 2 Oxygen Delivery Method Nasal Cannula Weight: 76.3 kg Body Mass Index (BMI) 22.8 Intake and Output for Last 24 Hours 01/08/19 01/09/19 01/10/19 23:59 23:59 23:59 Intake Total 1080 / 1080 120 / 120 Output Total 1650 / 1650 400 / 400 Balance -570 / -570 -280 / -280 General: Healthy Appearing, Awake, Oriented x 3, No Acute Distress Oral: Moist Mucosa Neck: No JVD Lungs: Clear to auscultation Extremities: No edema 01/10/19 06:15: Sodium 138, Potassium 4.5, Chloride 102, Carbon Dioxide 30.0, Anion Gap 6, BUN 35 H, Creatinine 1.27, Est GFR (MDRD) Af Amer 70, Est GFR (MDRD) Non-Af 58 L, BUN/Creatinine Ratio 27.6 H, Glucose 99, Calcium 9.1 Rhythm: EKG: ECHO: Stress Test: Cardiac Cath: PCI: CT Surgery: Holter monitor: EPS: PPM: CXR: Chest CT Scan: Medical Necessity - Tobacco Use Smoking Status: Never smoker Assessment/Plan 1. Acute on chronic systolic congestive heart failure. Functional class III. Continue diuresis. Switch to p.o. Lasix. 2. Nonischemic cardiomyopathy status post bi-V ICD placement. Started on low- dose AMELIA inhibitor. 3. Pacemaker mediated tachycardia. Pacemaker settings changed.. This has been tried in the past as well. If he continues with PMT, I recommend that he follow with EP as outpatient for possible AV griselda ablation. 4. History of coronary artery disease. 5. History of paroxysmal atrial fibrillation status post ablation. 6. History of hypertension May discharge home today from cardiology standpoint. Recommend check serum creatinine and electrolytes in 2 to 3 days after discharge home.
--- NOTE | 2019-01-10 10:51 | DCINST_ITS ---
- Discharge Diagnoses Current Active Problems: Current Active and Chronic Problems (Last Reviewed 01/09/19 @ 06:40 by Devon Campbell MD) Acute exacerbation of CHF (congestive heart failure) (Acute) Dysrhythmia (Acute) You will use the following diet at home:: No restrictions Your food should be the consistency of: Regular Your liquids should be the consistency of: Regular/Thin Discharge Activity: Return to Normal Activity Weight Bearing Status: Full weight bearing Additional Instructions: wear oxygen while walking and while sleeping Allergies/Adverse Reactions: Allergies crestor Adverse Reaction (Severe, Uncoded 01/08/19 21:40) Myalgias Medications to take at Discharge [place]-3 Fatty Acids/Fish Oil [[place] 3 1,000 mg Softgel] 2 ea PO BID 10/23/15 Rivastigmine Tartrate [Rivastigmine] 4.5 mg PO BID 10/23/15 Tamsulosin HCl [Flomax] 0.4 mg PO QHS 10/23/15 Aspirin E.C. [Ecotrin] 81 mg PO DAILY@0800 #30 tab 01/21/17 ticagrelor 90 mg tablet 90 mg PO BID #60 tab 03/05/18 atorvastatin 40 mg tablet 40 mg PO QHS #30 tab 03/24/18 cholecalciferol (vitamin D3) 1,000 unit capsule 2,000 unit PO DAILY cap 09/15/18 coenzyme Q10 100 mg capsule 100 mg PO DAILY 09/15/18 esomeprazole magnesium 20 mg capsule,delayed release 20 mg PO DAILY PRN cap 09/15/18 levothyroxine 100 mcg tablet 100 mcg PO DAILY 09/15/18 vitamin B complex tablet 1 tab PO DAILY 09/15/18 carvedilol 25 mg tablet 25 mg PO BID #180 tab 10/28/18 Amiodarone HCl [Cordarone] 200 mg PO DAILY 01/08/19 Acetaminophen [Tylenol Tablet] 650 mg PO Q6H PRN PRN tablet 01/10/19 Furosemide [Lasix] 40 mg PO BID #60 tab 01/10/19 Lisinopril [Zestril] 2.5 mg PO DAILY #30 tablet 01/10/19 Potassium Chloride [K-Dur] 20 meq PO DAILYCM #30 tablet 01/10/19 The following prescriptions were given: Lisinopril [Zestril] 2.5 mg PO DAILY #30 tablet Potassium Chloride [K-Dur] 20 meq PO DAILYCM #30 tablet Furosemide [Lasix] 40 mg PO BID #60 tab Primary Care Physician: Moreno Noel DO [Primary Care Provider] - Please follow up with your Primary Care Physician in: next week-get BMP performed to check kidney function Test Results: Test results from this visit will be discussed in further detail at your follow- up appointment, if applicable.
--- NOTE | 2019-01-10 11:12 | CASEMGMT ---
Case management Discharge Progress Note: Called [facility] and informed information for Home Oxygen was faxed, all information provided to [facility], aware needs portable tank delivered to patient bedside and to coordinate Oxygen delivery with patient , states to fax MD AJ Summary to [facility] once available. States client delivery specialist Behzad to call this CM for ETA of oxygen delivery. Called Yarelis at home and updated on above, states she will come to pick patient up after Home Concentrator has been delivered. Silvano Primary nurse aware that per would like patient to have a referral to a [employer] as he has not seen one before to add Oxygen onto his CPAP at night, Also MD summary to be faxed once available. Shanae Davey RNCM
--- NOTE | 2019-01-11 19:31 | PCM.DC.SUM ---
Discharge Date and Diagnosis Date of Admission: 01/09/19 Date of Discharge: 01/10/19 - Primary Discharge Diagnosis #1 acute on chronic systolic congestive heart failure #2 type 2 diabetes #3 Alzheimer's dementia #4 nonischemic cardiomyopathy #5 coronary artery disease #6 hypertension #7 respiratory insufficiency secondary to #1 #8 obstructive sleep apnea - Secondary Discharge Diagnosis Chronic Problems (Last Reviewed 01/09/19 @ 06:40 by Devon Campbell MD) Automatic implantable cardiac defibrillator in situ (Chronic) CAD (coronary artery disease) (Chronic) Stent to LAD 2017 Cardiomyopathy in disease classified elsewhere (Chronic) EF 35% Left bundle branch block (Chronic) Carotid bruit (Chronic) Automatic implantable cardioverter-defibrillator problem (Chronic) Supraventricular tachycardia (Chronic) Ventricular tachycardia (Chronic) Other secondary pulmonary hypertension (Chronic) Presence of coronary angioplasty implant and graft (Chronic) Lt Heart cath with PCI-SNOW-LAD 01/18/17 NSTEMI (non-ST elevated myocardial infarction) (Chronic) Atrial tachycardia, paroxysmal (Chronic) HTN (hypertension) (Chronic) Paroxysmal a-fib (Chronic) S/P ablation of atrial fibrillation (Chronic) EPS with Ablation 06/23 CHF (congestive heart failure) (Chronic) Dyslipidemia (Chronic) Diabetes mellitus (Chronic) Hospital Course and Treatment Operations: None Procedures: None Summary of Care Provided: The patient is a 78 year old M who was seen in the emergency room at [facility] with complaints of weakness and shortness of breath worse on exertion. Patient denied any chest pain. Work-up in the emergency room included interrogation of the patient's pacemaker, it was found that the patient was in paced rhythm 91% of the time, portable chest x-ray showed interstitial prominence suggestive of congestive heart failure, CBC was unremarkable, glucose was elevated at 167, BUN was 37, and creatinine was 1.32. Troponin was 0.031, beta natruretic peptide was 1139. Patient was given IV Lasix in the emergency room, he was admitted to PCU and seen in consultation by cardiology who adjusted his cardiac medications, patient was hypoxic and supplemental oxygen was delivered. Patient's oxygenation on the day of discharge on 01/10/2019 indicated the patient's O2 sat on room air while ambulating was 86%, on ambulation with oxygen at 2 L it was 95%, at rest on room air was 95%. Patient required oxygen at the time of discharge to home and was expected to wear his oxygen when ambulating and when sleeping. On 01/10/2019, patient was seen and examined: On examination he appeared in good health and spirits. Vital signs as documented. Skin warm and dry and without overt rashes. Neck without JVD. Lungs clear. Heart exam notable for regular rhythm-paced, normal sounds and absence of murmurs, rubs or gallops. Abdomen unremarkable and without evidence of organomegaly, masses, or abdominal aortic enlargement. Extremities nonedematous. Neuro: Cranial nerves II through XII are grossly intact, no focal motor deficits were noted, sensation to light touch and pinprick intact. Psych: Patient is alert and oriented x3, he does not appear anxious or depressed On 01/10/2019, patient was seen and examined and felt to be in stable condition for discharge home - Physical Exam Vital Signs Temp Pulse Resp BP Pulse Ox 98.2 F 60 16 96/54 L 96 01/10/19 14:50 01/10/19 15:00 01/10/19 14:50 01/10/19 14:50 01/10/19 14:50 Oxygen Flow Rate (L/min) [ 2 AMBULATION with Oxygen] Oxygen Flow Rate (L/min) [ 0 AMBULATING on Room Air] Oxygen Flow Rate (L/min) [At 0 REST on Room Air] Oxygen Flow Rate (L/min) 2 Oxygen Delivery Method Nasal Cannula Weight: 76.3 kg Body Mass Index (BMI) 22.8 Intake and Output for Last 24 Hours 01/09/19 01/10/19 01/11/19 23:59 23:59 23:59 Intake Total 1080 / 1080 580 / 580 Output Total 1650 / 1650 775 / 775 Balance -570 / -570 -195 / -195 Discharge Activity: Return to Normal Activity Weight Bearing Status: Full weight bearing Home Medications: Medications to take at Discharge [place]-3 Fatty Acids/Fish Oil [[place] 3 1,000 mg Softgel] 2 ea PO BID 10/23/15 Rivastigmine Tartrate [Rivastigmine] 4.5 mg PO BID 10/23/15 Tamsulosin HCl [Flomax] 0.4 mg PO QHS 10/23/15 Aspirin E.C. [Ecotrin] 81 mg PO DAILY@0800 #30 tab 01/21/17 ticagrelor 90 mg tablet 90 mg PO BID #60 tab 03/05/18 atorvastatin 40 mg tablet 40 mg PO QHS #30 tab 03/24/18 cholecalciferol (vitamin D3) 1,000 unit capsule 2,000 unit PO DAILY cap 09/15/18 coenzyme Q10 100 mg capsule 100 mg PO DAILY 09/15/18 esomeprazole magnesium 20 mg capsule,delayed release 20 mg PO DAILY PRN cap 09/15/18 levothyroxine 100 mcg tablet 100 mcg PO DAILY 09/15/18 vitamin B complex tablet 1 tab PO DAILY 09/15/18 carvedilol 25 mg tablet 25 mg PO BID #180 tab 10/28/18 Amiodarone HCl [Cordarone] 200 mg PO DAILY 01/08/19 Acetaminophen [Tylenol Tablet] 650 mg PO Q6H PRN PRN tablet 01/10/19 Furosemide [Lasix] 40 mg PO BID #60 tab 01/10/19 Lisinopril [Zestril] 2.5 mg PO DAILY #30 tablet 01/10/19 Potassium Chloride [K-Dur] 20 meq PO DAILYCM #30 tablet 01/10/19 Following Prescrptions Were Given to Patient: Lisinopril [Zestril] 2.5 mg PO DAILY #30 tablet Potassium Chloride [K-Dur] 20 meq PO DAILYCM #30 tablet Furosemide [Lasix] 40 mg PO BID #60 tab Primary Care Physician: Moreno Noel DO [Primary Care Provider] - Please follow up with your Primary Care Physician in: next week-get BMP performed to check kidney function Please Follow Up With: Moreno Noel DO Disposition: Home Minutes spent on discharge:: 32 Patient Condition:: Stable Medical Necessity - Tobacco Use Smoking Status: Never smoker Meaningful Use Info Meaningful Use Diagnoses (Choose all that apply): CHF - CHF AMELIA/ARB ordered at discharge?: Yes Documented LVEF (%): 35 Code Visit Inpatient E&M: 57672 Disch Hosp
== END 2019-01-10 16:53 | disposition home or self-care (01) | DRG 292 ==
LOC: ED 01-09 01:33 → PCU 01-09 01:56
PROVIDERS: Internal Medicine Cardiovascular Disease; Admitting Provider Hospitalist; Emergency Provider Emergency Medicine; Family Provider Family Medicine; PCP Family Medicine; Visit Provider Internal Medicine
DX: I11.0 Hypertensive heart disease with heart failure (principal); E87.1 Hypo-osmolality and hyponatremia; I47.1 Supraventricular tachycardia; I47.2 Ventricular tachycardia; I50.23 Acute on chronic systolic (congestive) heart failure; I42.9 Cardiomyopathy, unspecified; E03.9 Hypothyroidism, unspecified; N40.0 Benign prostatic hyperplasia without lower urinary tract symptoms; E78.5 Hyperlipidemia, unspecified; G47.33 Obstructive sleep apnea (adult) (pediatric); Z95.810 Presence of automatic (implantable) cardiac defibrillator; I25.10 Atherosclerotic heart disease of native coronary artery without angina pectoris; R06.89 Other abnormalities of breathing; G30.9 Alzheimer's disease, unspecified; F02.80 Dementia in other diseases classified elsewhere, unspecified severity, without behavioral disturbance, psychotic disturbance, mood disturbance, and anxiety; E11.9 Type 2 diabetes mellitus without complications; Z95.5 Presence of coronary angioplasty implant and graft; I25.2 Old myocardial infarction; I48.0 Paroxysmal atrial fibrillation; I43 Cardiomyopathy in diseases classified elsewhere
CPT/HCPCS: 36415; 71045; 80048; 80053; 82962; 83735; 83880; 84484; 85025; 93005; 93306; 94002; 97161; 97165; 97530; 97802; 99285; Q9957; A4216; C8929; J1940

== ENCOUNTER → 2019-01-14 09:32 | Outpatient (CLI) | payer MEDICARE, OTHER, SELFPAY ==
[2017-01-21 09:20] VITALS: BMI 26.8
[2019-01-09 02:36] VITALS: BMI 22.8
[2019-01-14 12:54] LABS: Anion Gap 1 (5-15); BUN 34 mg/dL (7-18); BUN/Creat Ratio 26.8 RATIO (10-20); Calcium,Total 9.5 mg/dL (8.5-10.1); Chloride 101 mmol/L (98-107); Creatinine, Serum 1.27 mg/dL (0.70-1.30); EST Glomerular Filtration Rate 58 mL/min (>60); Est Glom Filt Rate - Afr Amer 70 mL/min (>60); Glucose 136 mg/dL (74-106); Potassium 4.6 mmol/L (3.5-5.1); Sodium Level 135 mmol/L (136-145)
== END ==
PROVIDERS: Family Provider Family Medicine; PCP Family Medicine; Visit Provider Family Medicine
DX: I50.22 Chronic systolic (congestive) heart failure (principal); I95.9 Hypotension, unspecified
CPT/HCPCS: 36415; 80048

== ENCOUNTER → 2019-02-10 10:53 | Outpatient (CLI) | payer MEDICARE, OTHER, SELFPAY ==
[2017-01-21 09:20] VITALS: BMI 26.8
[2019-01-30 09:02] VITALS: BMI 23.0
[2019-02-10 12:43] LABS: Hemoglobin A1c 6.9 % (4.2-6.3)
[2019-02-10 12:44] LABS: Anion Gap 6 (5-15); BUN 28 mg/dL (7-18); BUN/Creat Ratio 26.4 RATIO (10-20); Calcium,Total 9.3 mg/dL (8.5-10.1); Chloride 103 mmol/L (98-107); Creatinine, Serum 1.06 mg/dL (0.70-1.30); EST Glomerular Filtration Rate 71 mL/min (>60); Est Glom Filt Rate - Afr Amer 86 mL/min (>60); Glucose 107 mg/dL (74-106); Potassium 4.2 mmol/L (3.5-5.1); Sodium Level 141 mmol/L (136-145); T4 Free Direct 1.19 ng/dL (0.76-1.46); Thyroid Stim Hormone (TSH) 2.64 uIU/mL (0.358-3.74)
[2019-02-11 16:07] LABS: PROEL- A/G Ratio 0.9 (0.7-1.7); PROEL- Albumin 3.3 g/dL (2.9-4.4); PROEL- Alpha-1 Globulin 0.3 g/dL (0.0-0.4); PROEL- Alpha-2 Globulin 0.9 g/dL (0.4-1.0); PROEL- Gamma Globulin 1.4 g/dL (0.4-1.8); PROEL- Globulin, Total 3.6 g/dL (2.2-3.9); PROEL- TOTAL PROTEIN 6.9 g/dL (6.0-8.5)
== END ==
PROVIDERS: Internal Medicine Cardiovascular Disease; Family Provider Family Medicine; PCP Family Medicine; Visit Provider Family Medicine
DX: E11.22 Type 2 diabetes mellitus with diabetic chronic kidney disease (principal); E03.9 Hypothyroidism, unspecified; E88.09 Other disorders of plasma-protein metabolism, not elsewhere classified; I25.10 Atherosclerotic heart disease of native coronary artery without angina pectoris
CPT/HCPCS: 80048; 83036; 84165; 84439; 84443

== ENCOUNTER → 2019-03-18 09:00 | Outpatient (CLI) | payer MEDICARE, OTHER, SELFPAY ==
[2017-01-21 09:20] VITALS: BMI 26.8
[2019-01-30 09:02] VITALS: BMI 23.0
[2019-03-02 10:00] VITALS: BMI 23.0
[2019-03-18 10:40] LABS: AST(SGOT) 21 U/L (15-37); Alanine Aminotransfer ALT/SGPT 21 U/L (16-61); Albumin, Serum 3.5 g/dL (3.2-5.0); Alkaline Phosphatase 77 U/L (45-117); Bilirubin, Direct 0.19 mg/dL (0.00-0.30); Cholesterol 110 mg/dL (200); High Density Lipoprotein 44 mg/dL; Protein, Total 7.5 g/dL (6.4-8.2); Triglycerides 74 mg/dL; Very Low Density Lipoprotein 15 mg/dL (5-40)
== END ==
PROVIDERS: Family Provider Family Medicine; PCP Family Medicine; Referring Provider Internal Medicine Cardiovascular Disease; Visit Provider Internal Medicine Cardiovascular Disease
DX: E78.5 Hyperlipidemia, unspecified (principal)
CPT/HCPCS: 36415; 80061; 80076

== ENCOUNTER → 2019-04-10 13:42 | Outpatient (CLI) | payer MEDICARE, OTHER, SELFPAY ==
[2017-01-21 09:20] VITALS: BMI 26.8
[2019-04-07 10:31] VITALS: BMI 25.4
--- NOTE | 2019-04-10 13:44 | CT_ITS ---
STUDY: CT CHEST WITHOUT CONTRAST REASON FOR EXAM: Male, 78 years old. ILD. RADIATION DOSAGE (If Supplied By Facility): CTDIvol = ( 19.87 ) mGy, DLP = ( 716.86 ) mGycm TECHNIQUE: Transaxial imaging was performed without the administration of intravenous contrast material. Multiplanar coronal and sagittal images were reformatted. Individualized dose optimization techniques were used for this CT. COMPARISON: Chest, January 08, 2019. CTA of the chest, January 18, 2017. FINDINGS: There is mild emphysematous changes in the lungs. There are scattered calcified granulomata throughout both lungs. There is honeycombing on the bilateral lower lobes. There is diffuse calcific pleural plaques. There are small bilateral pleural effusions and atelectasis, left greater than right. There is resolution of the groundglass infiltrates in the upper lobes noted on the previous CTA. The heart is normal in size. Normal pericardium. Pacer leads are seen within the right heart along the posterior aspect of the left ventricle. There are calcifications of the coronary arteries. There is diffuse anterior mediastinal, paratracheal, AP window and subcarinal lymphadenopathy. Calcifications are noted in some of the lymph nodes. There is bilateral hilar calcific lymphadenopathy. Normal unenhanced pulmonary arteries. There is atherosclerotic calcification of the aortic arch with tortuosity and elongation of the aortic arch and descending thoracic aorta. There are multi-level degenerative changes of the thoracic spine. The prominent left lateral lobe of the liver. There are gallstones in a partially collapsed gallbladder. Large bilateral renal cysts are noted. There is a small type I hiatal hernia. The abdominal findings are essentially unchanged from prior exam. CT/Chest without Contrast IMPRESSION: 1. Evidence of old granulomatous disease. 2. The specimens related pleural disease. 3. Honeycombing of the bilateral lower lobes consistent with ILD. Honeycombing is most suggestive of UIP. 4. Cardiac pacemaker. 5. Diffuse calcified and noncalcified mediastinal and hilar lymphadenopathy. 6. Hiatal hernia. 7. Gallstones. 8. Bilateral renal cysts. Electronically Signed: Ramy Santos DO at 17:54 EDT Tel [phone], Service support ,
== END ==
PROVIDERS: Family Provider Family Medicine; PCP Family Medicine; Referring Provider Internal Medicine Critical Care Medicine; Visit Provider Internal Medicine Critical Care Medicine
DX: R06.02 Shortness of breath (principal); J96.11 Chronic respiratory failure with hypoxia
CPT/HCPCS: 71250

== ENCOUNTER → 2019-05-14 13:18 | Outpatient (CLI) | payer MEDICARE, OTHER, SELFPAY ==
[2017-01-21 09:20] VITALS: BMI 26.8
[2019-04-07 10:31] VITALS: BMI 25.4
--- NOTE | 2019-05-15 06:45 | PFTCOMP ---
COMPLETE PULMONARY FUNCTION TEST INTERPRETATION Brief HPI: Patient is an 78 year old male, currently under the care of Dr. Chanel, who presents to [facility] for complete pulmonary function tests secondary to diagnosis of dyspnea. Respiratory therapist reports good effort and reproducible results. Interpretation: Forced expiration spirometry shows no large airways obstructive ventilatory defect with an FEV1 of 74% predicted. There is no significant bronchodilator response by strict ATS criteria. Spirograms are of good quality and plateau normally. The respiratory flow volume loop shows a normal pattern. Lung volumes by body plethysmography show a decreased total lung capacity at 4.67 L, 68% predicted. All other lung volumes are reduced symmetrically. Diffusion capacity by carbon monoxide is decreased at 35% predicted. The airway resistance is normal. No previous pulmonary function tests were available for review. Impression: Moderate restrictive ventilatory defect with a reduction in diffusion capacity and a pattern consistent with interstitial lung disease.
== END ==
PROVIDERS: Family Provider Family Medicine; PCP Family Medicine; Referring Provider Internal Medicine Critical Care Medicine; Visit Provider Internal Medicine Critical Care Medicine
DX: R94.39 Abnormal result of other cardiovascular function study (principal); Z95.5 Presence of coronary angioplasty implant and graft; R06.02 Shortness of breath; J96.11 Chronic respiratory failure with hypoxia
CPT/HCPCS: 94060; 94726; 94729

== ENCOUNTER → 2019-05-15 12:26 | Outpatient (CLI) | payer MEDICARE, OTHER, SELFPAY ==
[2017-01-21 09:20] VITALS: BMI 26.8
[2019-04-07 10:31] VITALS: BMI 25.4
[2019-05-15 12:35] VITALS: PULSE 70; PULSE 72; PULSE 73; PULSE 76; PULSE 79; PULSE 80; PULSE 82; O2SAT 87; O2SAT 91; O2SAT 93; O2SAT 94; O2SAT 95; O2SAT 96; O2SAT 97
--- NOTE | 2019-05-15 12:35 | CPS ---
Pt arrived on 2L pulse dose. SpO2 95%. Pt placed on room air prior to start of study. SpO2 was 87% and pt was placed on 2L in which he recovered to 96%. The rest of the test was performed on 2L continuous flow. Pt with noted cyanosis to the lips during study but no complaints of SOB just joint/ leg pain. Pt is interested in POC. DME= [employer].
--- NOTE | 2019-05-15 14:08 | PCM.PSN.6M ---
PSN 6 Minute Walk Test - 6 Minute Walk Test 6 Minute Walk Test: 6 Minute Walk Test PSN:6-Minute Walk Test Start: 05/15/19 12:52 Freq: Status: Active Protocol: [id number] Document 05/15/19 12:35 [facility] (Rec: 05/15/19 12:59 [facility] [id number]) 6 Minute Walk Test Date Performed 05/15/19 Time Performed 12:35 Height 6 ft Weight: 85.275 kg Weight in Pounds 188.[address]: Oz Chanel Assistive device used: None Pre-test Oxygen Delivery Method Room Air Pulse Ox (%) 87 Pulse Rate (60-100 beats/min) 70 Dyspnea Charanjit Scale (0-10) 0 Exertion Charanjit Scale (6-20) 6 Reported Symptoms Cyanotic 1st minute Oxygen Flow Rate (L/min) (L/min) 2 Oxygen Delivery Method Nasal Cannula Pulse Ox (%) 94 Pulse Rate (60-100 beats/min) 82 Number of Rests Taken 0 2nd minute Oxygen Flow Rate (L/min) (L/min) 2 Oxygen Delivery Method Nasal Cannula Pulse Ox (%) 96 Pulse Rate (60-100 beats/min) 80 Number of Rests Taken 0 3rd minute Oxygen Flow Rate (L/min) (L/min) 2 Oxygen Delivery Method Nasal Cannula Pulse Ox (%) 93 Pulse Rate (60-100 beats/min) 76 Number of Rests Taken 2 Reported Symptoms Cyanotic 4th minute Oxygen Flow Rate (L/min) (L/min) 2 Oxygen Delivery Method Nasal Cannula Pulse Ox (%) 91 Pulse Rate (60-100 beats/min) 73 Number of Rests Taken 1 Reported Symptoms Cyanotic 5th minute Oxygen Flow Rate (L/min) (L/min) 2 Oxygen Delivery Method Nasal Cannula Pulse Ox (%) 94 Pulse Rate (60-100 beats/min) 76 Number of Rests Taken 0 6th minute Oxygen Flow Rate (L/min) (L/min) 2 Oxygen Delivery Method Nasal Cannula Pulse Ox (%) 95 Pulse Rate (60-100 beats/min) 79 Number of Rests Taken 1 Reported Symptoms Cyanotic Post-test Oxygen Flow Rate (L/min) (L/min) 2 Oxygen Delivery Method Nasal Cannula Pulse Ox (%) 97 Pulse Rate (60-100 beats/min) 72 Dyspnea Charanjit Scale (0-10) 1 Exertion Charanjit Scale (6-20) 12 Full Laps Walked 4 Partial Lap, Number of Tiles Walked 45 Total Distance Walked (ft) 281 05/15/19 12:35 (created 05/15/19 12:56) Cardiopulmonary Services by Tianna Palacios Pt arrived on 2L pulse dose. SpO2 95%. Pt placed on room air prior to start of study. SpO2 was 87% and pt was placed on 2L in which he recovered to 96%. The rest of the test was performed on 2L continuous flow. Pt with noted cyanosis to the lips during study but no complaints of SOB just joint/ leg pain. Pt is interested in POC. DME= [employer]. Initialized on 05/15/19 12:56 - END OF NOTE - Interpretation Interpretation: The patient was noted to be 87% on room air at the beginning of the study. The patient was placed on 2 L nasal cannula oxygen with improvement to 96%. The patient then was only able to travel 281 feet over the course of 6 minutes with no assistive devices, but for breaks. The patient had a oxygen shonna of 91% on 2 L nasal cannula. No significant tachycardia was noted. These findings are consistent with a respiratory limitation exercise tolerance. - Recommendations Recommendations: The patient requires 2 L nasal cannula oxygen at all times.
== END ==
PROVIDERS: Family Provider Family Medicine; PCP Family Medicine; Referring Provider Internal Medicine Critical Care Medicine; Visit Provider Internal Medicine Critical Care Medicine
DX: R06.02 Shortness of breath (principal); J96.11 Chronic respiratory failure with hypoxia
CPT/HCPCS: 94618

== ENCOUNTER → 2019-06-04 10:46 | Outpatient (CLI) | payer MEDICARE, OTHER, SELFPAY ==
[2017-01-21 09:20] VITALS: BMI 26.8
[2019-06-04 09:50] VITALS: BMI 25.0
== END ==
PROVIDERS: Physician Assistant Medical; Family Provider Family Medicine; PCP Family Medicine; Referring Provider Internal Medicine Cardiovascular Disease; Visit Provider Internal Medicine Cardiovascular Disease
DX: R06.00 Dyspnea, unspecified (principal)
CPT/HCPCS: 36415; 83880

== ENCOUNTER → 2019-06-16 20:28 | Outpatient (CLI) | payer MEDICARE, OTHER, SELFPAY ==
[2017-01-21 09:20] VITALS: BMI 26.8
[2019-05-20 07:28] VITALS: BMI 25.0
[2019-06-04 09:50] VITALS: BMI 25.0
== END ==
PROVIDERS: Family Provider Family Medicine; PCP Family Medicine; Referring Provider Internal Medicine Critical Care Medicine; Visit Provider Internal Medicine Critical Care Medicine
DX: G47.33 Obstructive sleep apnea (adult) (pediatric) (principal)
CPT/HCPCS: 95811

== ENCOUNTER → 2019-06-19 12:31 | Outpatient (CLI) | payer MEDICARE, OTHER, SELFPAY ==
[2017-01-21 09:20] VITALS: BMI 26.8
[2019-06-04 09:50] VITALS: BMI 25.0
[2019-06-19 14:00] LABS: Anion Gap 7 (5-15); BUN 30 mg/dL (7-18); BUN/Creat Ratio 26.5 RATIO (10-20); Calcium,Total 9.1 mg/dL (8.5-10.1); Chloride 102 mmol/L (98-107); Creatinine, Serum 1.13 mg/dL (0.70-1.30); EST Glomerular Filtration Rate 66 mL/min (>60); Est Glom Filt Rate - Afr Amer 80 mL/min (>60); Glucose 138 mg/dL (74-106); Potassium 4.3 mmol/L (3.5-5.1); Sodium Level 141 mmol/L (136-145)
== END ==
PROVIDERS: Nurse Practitioner Family; Family Provider Family Medicine; PCP Family Medicine; Referring Provider Physician Assistant Medical; Visit Provider Physician Assistant Medical
DX: I10 Essential (primary) hypertension (principal); I25.10 Atherosclerotic heart disease of native coronary artery without angina pectoris; I42.8 Other cardiomyopathies
CPT/HCPCS: 36415; 80048

== ENCOUNTER → 2019-07-08 16:20 | Outpatient (CLI) | payer MEDICARE, OTHER, SELFPAY ==
[2017-01-21 09:20] VITALS: BMI 26.8
[2019-06-04 09:50] VITALS: BMI 25.0
== END ==
PROVIDERS: Family Provider Family Medicine; PCP Family Medicine; Referring Provider Nurse Practitioner Acute Care; Visit Provider Nurse Practitioner Acute Care
DX: Z46.89 Encounter for fitting and adjustment of other specified devices (principal)

== ENCOUNTER → 2019-09-15 09:20 | Outpatient (CLI) | payer MEDICARE, OTHER, SELFPAY ==
[2017-01-21 09:20] VITALS: BMI 26.8
[2019-07-29 09:29] VITALS: BMI 24.1
[2019-09-15 10:09] LABS: AST(SGOT) 26 U/L (15-37); Alanine Aminotransfer ALT/SGPT 29 U/L (16-61); Albumin, Serum 3.7 g/dL (3.2-5.0); Alkaline Phosphatase 87 U/L (45-117); Bilirubin, Direct 0.29 mg/dL (0.00-0.30); Cholesterol 102 mg/dL (200); Globulin 4.8 g/dL (2.2-4.2); High Density Lipoprotein 42 mg/dL; Protein, Total 8.5 g/dL (6.4-8.2); Triglycerides 96 mg/dL; Very Low Density Lipoprotein 19 mg/dL (5-40)
== END ==
PROVIDERS: Family Provider Family Medicine; PCP Family Medicine; Referring Provider Physician Assistant Medical; Visit Provider Physician Assistant Medical
DX: E78.5 Hyperlipidemia, unspecified (principal)
CPT/HCPCS: 36415; 80061; 80076

== ENCOUNTER → 2019-11-27 11:22 | Outpatient (CLI) | payer MEDICARE, OTHER, SELFPAY ==
[2017-01-21 09:20] VITALS: BMI 26.8
[2019-09-22 08:35] VITALS: BMI 24.7
[2019-11-27 12:13] LABS: Hematocrit 48.6 % (40-54); Mean Corp Hgb Conc 30.9 g/dL (32-36); Mean Corpuscular Hgb 29.1 pg (27.0-32.0); Mean Corpuscular Volume 94.4 fL (80-94); Mean Platelet Vol. 11.5 fl (6.2-12.0); Platelet Count 164 K/mm3 (150-450); RBC Distribution Width CV 16.2 % (11.6-14.6); RBC Distribution Width SD 53.8 fl (35.1-43.9); Red Blood Count 5.15 M/mm3 (4.6-6.2); White Blood Count 9.5 K/mm3 (4.4-11.0)
[2019-11-27 12:49] LABS: Anion Gap 8 (5-15); BUN 39 mg/dL (7-18); BUN/Creat Ratio 25.7 RATIO (10-20); Calcium,Total 9.7 mg/dL (8.5-10.1); Chloride 100 mmol/L (98-107); Creatinine, Serum 1.52 mg/dL (0.70-1.30); EST Glomerular Filtration Rate 47 mL/min (>60); Est Glom Filt Rate - Afr Amer 57 mL/min (>60); Glucose 169 mg/dL (74-106); Potassium 4.9 mmol/L (3.5-5.1); Sodium Level 135 mmol/L (136-145)
== END ==
PROVIDERS: PCP Family Medicine; Visit Provider Nurse Practitioner Family
DX: I25.10 Atherosclerotic heart disease of native coronary artery without angina pectoris (principal); Z95.5 Presence of coronary angioplasty implant and graft; Z95.810 Presence of automatic (implantable) cardiac defibrillator; I11.0 Hypertensive heart disease with heart failure; I50.23 Acute on chronic systolic (congestive) heart failure; I27.21 Secondary pulmonary arterial hypertension; R53.1 Weakness
CPT/HCPCS: 36415; 80048; 85027

== ENCOUNTER 2019-12-08 18:13 | Inpatient (IN) | payer MEDICARE, OTHER, SELFPAY ==
[2017-01-21 09:20] VITALS: BMI 26.8
[2019-09-22 08:35] VITALS: BMI 24.7
[2019-12-08] VITALS (9 sets, daily range): BP systolic 93–118; BP diastolic 58–82; PULSE 63–74; RESP 17–25; TEMP 36–36.2; O2SAT 96–100; BMI 26.4; BMI 26.5; BMI 26.7
--- NOTE | 2019-12-08 18:22 | EKG12_ITS ---
Test Reason : NAUSEA/VOMITTING Blood Pressure : / mmHG Vent. Rate : 073 BPM Atrial Rate : 073 BPM P-R Int : 196 ms QRS Dur : 142 ms QT Int : 480 ms P-R-T Axes : 057 173 000 degrees QTc Int : 528 ms Atrial-sensed ventricular-paced rhythm Biventricular pacemaker detected Abnormal ECG Confirmed by REYNA YANEZ, PORTER ([id number]), development editor ARIELLE REYNOLDS ([id number]) on 12/15/2019 1:59:55 PM Referred By: DEVYN Confirmed By:FATOUMATA ORELLANA MD
--- NOTE | 2019-12-08 18:23 | ED.VIS.GEN ---
History of Present Illness Chief Complaint: Nausea/Vomiting Informant: Patient, Significant Other - called then and states he has had symptoms for 2 weeks. Onset: Days - Onset 6 days ago Context: Sudden Onset Timing: Intermittent Quality: Nausea and vomiting initially now dry heaves Location: GI Current Severity: Moderate Maximum Severity: Severe Worsened by: Attempt to eat or drink anything Relieved by: Nothing Associated Symptoms: Has had no solid food for 4 days and no liquids for several days Narrative: Patient is an elderly male who presents with nausea vomiting that started 6 days ago. He now reports dry heaves. States he is not anything to eat or drink for several days. He is on Lasix and spironolactone. He also has a pacemaker with defibrillator. He does report lightheadedness with standing today. He denies fever, chills night sweats. He denies any infectious or upper respiratory symptoms. He denies diarrhea. He denies urologic symptoms. He does report decreased urine output. He denies history of kidney disease. He denies abdominal pain or back pain. He has no other complaints other than nausea vomiting. Prior similar symptoms: No Recent Illness/Hospitalization: No - Past Medical History (1) Acute on chronic systolic (congestive) heart failure Status: Chronic (2) Bladder cancer Status: Chronic (3) Dyslipidemia Status: Chronic (4) Essential (primary) hypertension Status: Chronic (5) Non-rheumatic tricuspid valve insufficiency Status: Chronic (6) Nonischemic cardiomyopathy Status: Chronic (7) Old anterior wall myocardial infarction Status: Chronic (8) Presence of biventricular implantable cardioverter-defibrillator (ICD) Status: Chronic Comment: [employer], (9) Secondary pulmonary arterial hypertension Status: Chronic (10) Paroxysmal supraventricular tachycardia Status: Resolved Comment: AVNRT ablation of slow pathway 06/2015 Past Medical History - Allergies and Home Meds Allergies/Adverse Reactions: Allergies crestor Adverse Reaction (Severe, Uncoded 12/08/19 18:15) Myalgias Primary Care Physician: Moreno Noel DO [Primary Care Provider] - Prior records reviewed: Yes Surgical History: appendectomy, herniorrhaphy, - - ICD placement, ablation for SVT Lives: Spouse/ Significant Other Smoking Status: Never smoker Alcohol: None Drugs: None - Family History Maternal Family History: Family History (Last Reviewed 09/22/19 @ 10:[address] Carlos Langley MD) Father CVA (cerebral vascular accident) Diabetes Hypertension HLD (hyperlipidemia) Mother CVA (cerebral vascular accident) Hypertension HLD (hyperlipidemia) Brother Diabetes Brother Diabetes Sister Diabetes Hypertension Sister Hypertension Daughter Epilepsy Family History: Reports: - - Noncontributory. Paternal Family History: Family History (Last Reviewed 09/22/19 @ 10:[address] Carlos Langley MD) Father CVA (cerebral vascular accident) Diabetes Hypertension HLD (hyperlipidemia) Mother CVA (cerebral vascular accident) Hypertension HLD (hyperlipidemia) Brother Diabetes Brother Diabetes Sister Diabetes Hypertension Sister Hypertension Daughter Epilepsy Family History: Reports: No pertinent history Review of Systems General: Reports: Malaise. Denies: Chills, Fever, Subjective, Sweats, Weight loss, - Eyes: Denies: Visual changes - bilaterally, Blurred Vision - bilaterally ENT: Reports: - - Reports dry mouth and thirst. Denies: Bilateral ear pain, Rhinorrhea, Sore throat Cardiovascular: Denies: Chest pain, Palpitations Respiratory: Denies: Dyspnea, Cough, Dyspnea on exertion Gastrointestinal: Reports: Nausea, Vomiting. Denies: Abdominal pain, Diarrhea, Constipation, Melena, Hematochezia, -, - Genitourinary: Denies: Dysuria, Hematuria, Frequency Musculoskeletal: Denies: Myalgias, Arthralgias, Neck pain, Back pain, Swelling, Extremity Pain, -, - Skin: Denies: Rash, Wounds Neurological: Reports: Weakness. Denies: Headache, Parasthesia, Numbness, -, - Psych: Denies: Depression, Anxiety Hematologic: Denies: Easy bruising, Easy bleeding Allergy: Denies: Uticaria, Swelling of the mouth Physical Exam Vital Signs/Narrative: Vital Signs Temp Pulse Resp BP Pulse Ox 12/08/19 18:15 97.1 F L 74 20 H 108/58 L 96 Inital Vital Signs reviewed: Yes General: Well nourished, Well developed, No Acute Distress Head: Normocephalic, Atraumatic Eyes: Perrl, EOMI. Negative for: Pale conjunctiva, Scleral icterus ENT: No rhinorrhea, TM's clear, Dry mucous membranes. Negative for: Nasal congestion Neck: Supple, Nontender, No lymphadenopathy, No JVD Cardiovascular: Regular rate, Regular rhythm, No murmurs, Normal S1, Normal S2 Respiratory: No distress, CTA bilaterally, Chest nontender Abdomen: Soft, Nontender, Nondistended, Normal bowel sounds, No masses. Negative for: Tender, Guarding, Rebound tenderness, Hyperactive bowel sounds, Hepatomegaly, Splenomegaly, Pulsatile mass Rectal: Deferred Back: Nontender, Normal Inspection Extremities: Nontender, No edema Skin: Normal color, No rash, No Trauma. Negative for: Cyanosis, Diaphoresis, Jaundice Neurological: Alert, Oriented x3, Cranial nerves II-XII grossly intact, Normal Strength, Normal Sensation, Normal DTR Psychological: Normal affect, Normal Mood Diagnostic/Tx/Re-eval Creatinine on June 19, 2019 was 1.13. Creatinine on November 26 was 1.52. Creatinine today is 1.75. This would be consistent with patient not able to keep any liquids or food down and acute kidney injury. Lactate is elevated at 4.5. AST and ALT are multiples above normal and bilirubin is 2.5. A portable ultrasound of the right upper quadrant/gallbladder was ordered to evaluate for acute cholecystitis. At 1911 I was informed by nurse that his pressure is 93 systolic. A second liter of normal saline wide open was ordered. Impressions Gallbladder Ultrasound 12/08/19 19:09 IMPRESSION: Multiple gallstones. Mild gallbladder wall thickening. Normal common bile duct. Right pleural effusion. Mild ascites. Electronically Signed: Lex Renee MD at 20:04 EDT Tel , Service support , 12/08/19 19:09 US Gallbladder [Gallbladder] [US] Stat Laboratory Results 12/08/19 12/08/19 12/08/19 18:23 18:23 18:23 WBC 11.8 H RBC 5.17 Hgb 15.1 Hct 47.5 MCV 91.9 MCH 29.2 MCHC 31.8 L RDW Std Deviation 53.4 H RDW Coeff of [place] 17.4 H Plt Count 190 MPV 11.5 Immature Gran % (Auto) 1.000 H Neut % (Auto) 81.9 H Lymph % (Auto) 5.4 L [place] % (Auto) 11.6 H Eos % (Auto) 0.0 Baso % (Auto) 0.1 Absolute Neuts (auto) 9.6 H Absolute Lymphs (auto) 0.64 L Nucleated RBC % 0.3 Differential Comment SCANNED Sodium 132 L Potassium 5.6 H Chloride 97 L Carbon Dioxide 25.0 Anion Gap 10 BUN 58 H Creatinine 1.75 H Estim Creat Clear Calc 36.34 Est GFR (MDRD) Af Amer 48 L Est GFR (MDRD) Non-Af 40 L BUN/Creatinine Ratio 33.1 H Glucose 116 H Lactic Acid 4.5 H* Calcium 9.3 Total Bilirubin 2.50 H AST 335 H ALT 319 H Alkaline Phosphatase 318 H Total Protein 7.4 Albumin 3.1 L Globulin 4.3 H Albumin/Globulin Ratio 0.7 L With jaundice elevated liver enzymes concern patient may have a sending cholangitis. Spoke with surgeon on-call Dr. Solomon Roberson to. He agrees with antibiotics and fluids. There is also a right pleural effusion noted. There is also ascites. Agrees with admission ICU. Will speak with hospitalist. Patient is receiving his 30 cc/kg bolus. He remains hypotensive he will need a central line and possible pressors. - EKG Initial EKG Interpretation: - - There is an atrial sensed ventricular paced rhythm with a ventricular rate of 73. The KS interval is 196 ms. The QRS durations 142 ms. The QT duration is 480 ms. The axis is normal. - Medical Decision Making [place] patient is dehydrated. Since he is on furosemide and Spironolactone concern for hyperkalemia, electrolyte abnormality and acute kidney injury. Basic metabolic panel was obtained. Urinalysis was obtained to assess for proteinuria and hematuria which would indicate endorgan injury from SURESH. CBC was obtained to assess for anemia. He will receive 1 L of normal saline wide open and 4 mg of Zofran IV push for his persistent nausea. EKG was obtained to assess for changes that would suggest hyperkalemia. - Critical Care Time Critical care time (excluding procedures): 30-74 minutes - Care time 37 minutes, Discussing w/Patient &/or Family/Reeling Machine Operator, Discussing w/Consultants - Dr. knutson did see patient. After reviewing patient's labs, ultrasound he decided to have patient admitted to medicine with consult to him and will reevaluate in morning to determine if patient needs a cholecystectomy versus ERCP. He requested patient remain n.p.o., Arranging Admission or Transfer ED Disposition - Plan for ED Patient: Disposition: Acute Care Hospital [facility] Diagnosis: Ascending cholangitis, Septic shock, Acute renal insufficiency, Pleural effusion, right, Ascites Referrals: Moreno Noel DO [Primary Care Provider] -
[2019-12-08] MEDS: 0.9% Normal Saline 1,000 ML 1000 ML IV ×3 (18:25→20:20)
[2019-12-08] MEDS: Ondansetron 4 MG/2 ML Vial IV (18:31)
[2019-12-08 18:40] LABS: Absolute Lymphocyte Count 0.64 X10^3/uL (0.83-4.51); Absolute Neutrophil Count 9.6 X10^3/uL (2.0-7.7); Basophil# 0.01 X10^3/uL; Basophil% 0.1 % (0-1); Hematocrit 47.5 % (40-54); Hemoglobin 15.1 g/dL (13.0-16.5); Lymphocyte # 0.64 X10^3/ul (4.0); Lymphocyte % 5.4 % (19-41); Mean Corp Hgb Conc 31.8 g/dL (32-36); Mean Corpuscular Hgb 29.2 pg (27.0-32.0); Mean Corpuscular Volume 91.9 fL (80-94); Mean Platelet Vol. 11.5 fl (6.2-12.0); Monocyte# 1.37 X10^3/uL; Monocyte% 11.6 % (0-10); NRBC Flagged by Analyzer 0.3 % (0-5); Neutrophil # 9.64 X10^3/uL (2.7-7.7); Neutrophil % 81.9 % (47-70); POSITIVE MORPHOLOGY YES; Platelet Count 190 K/mm3 (150-450); RBC Distribution Width CV 17.4 % (11.6-14.6); RBC Distribution Width SD 53.4 fl (35.1-43.9); Red Blood Count 5.17 M/mm3 (4.6-6.2); White Blood Count 11.8 K/mm3 (4.4-11.0)
[2019-12-08 18:47] LABS: Differential Indicated SCAN CRITERIA MET
[2019-12-08 18:56] LABS: ALB/GLOB Ratio 0.7 RATIO (0.9-2.4); AST(SGOT) 335 U/L (15-37); Alanine Aminotransfer ALT/SGPT 319 U/L (16-61); Albumin, Serum 3.1 g/dL (3.2-5.0); Alkaline Phosphatase 318 U/L (45-117); Anion Gap 10 (5-15); BUN 58 mg/dL (7-18); BUN/Creat Ratio 33.1 RATIO (10-20); Calcium,Total 9.3 mg/dL (8.5-10.1); Chloride 97 mmol/L (98-107); Creatinine, Serum 1.75 mg/dL (0.70-1.30); EST Glomerular Filtration Rate 40 mL/min (>60); Est Glom Filt Rate - Afr Amer 48 mL/min (>60); Estimated Creatinine Clearance 36.34 ml/min; Globulin 4.3 g/dL (2.2-4.2); Glucose 116 mg/dL (74-106); Potassium 5.6 mmol/L (3.5-5.1); Protein, Total 7.4 g/dL (6.4-8.2); Sodium Level 132 mmol/L (136-145)
[2019-12-08 19:05] LABS: Differential Comment SCANNED
[2019-12-08 19:09] LABS: Lactic Acid 4.5 mmol/L (0.4-1.9)
--- NOTE | 2019-12-08 19:09 | US_ITS ---
STUDY: ABDOMINAL ULTRASOUND - RIGHT UPPER QUADRANT REASON FOR VISIT: Male, 79 years old elev liver enz TECHNIQUE: Ultrasound evaluation of the right upper quadrant was performed with real-time and static luna-scale imaging. TECHNICAL QUALITY: Adequate. COMPARISON: None. FINDINGS: Liver: The liver measures 16.5 cm. There is normal echogenicity of the liver. The bile ducts are within normal limits. There is hepatic color flow. The direction of portal flow is hepatopetal. There is no demonstrated mass lesion. Gallbladder: Normal distended gallbladder. The gallbladder wall measures 4 mm. There is a negative sonographic Vuong''s sign. There is no pericholecystic fluid. There are multiple echogenic structures within the gallbladder, consistent with multiple gallstones. Common Bile Duct (C.B.D.): The common bile duct measures 4 mm. Pancreas: Partially obscured by gas. Visible portions are normal. Right Kidney: Normal size of the right kidney. The right kidney measures 13.3 x 6.1 x 5.8 cm. Normal renal cortex. The right cortex measures 1.6 cm. Multiple right renal cysts, the largest measuring 5.6 x 5.5 x 5.5 cm. There is no right hydronephrosis. Right pleural effusion. Mild ascites. US/Gallbladder IMPRESSION: Multiple gallstones. Mild gallbladder wall thickening. Normal common bile duct. Right pleural effusion. Mild ascites. Electronically Signed: Lex Renee MD at 20:04 EDT Tel , Service support ,
[2019-12-08 20:29] LABS: Bacteria 0 SEEN /hpf (None Seen); Mucous, Urine 0 SEEN /hpf (<or=2+); Red Blood Cells-Urine 0 SEEN /hpf (0-5); Squamous Epithelial Cells - UA 0 SEEN /hpf (0-5); White Blood Cells 0 SEEN /hpf (0-5)
[2019-12-08 20:33] LABS: Color, Urine Amber (Yellow); Glucose, Dipstick Normal (Normal); Ketone-Dipstick Negative (Negative); Leukocyte Esterase-Dipstick Negative /ul (Negative); Nitrite-Dipstick Negative (Negative); Occult Blood-Urine Negative /ul (Negative); Protein-Dipstick 30 mg/dl (Negative); Urine Bilirubin Dipstick Negative (Negative); Urine Clarity Sl. Cloudy (Clear); Urine Urobilinogen 4 mg/dl (Normal)
[2019-12-08 20:50] LABS: Hyaline Cast 25-50 SEEN /lpf (0-5)
[2019-12-08 20:53] LABS: Amorphous Sediment 3+; Transitional Epithelial - Ur 0-5 SEEN /hpf (0-5)
[2019-12-08 21:06] LABS: Renal Epithelial Cells 0-5 SEEN /hpf (0-5)
--- NOTE | 2019-12-08 21:11 | PCM.HP.STD ---
Problem List (1) Ascending cholangitis Status: Acute (2) Septic shock Status: Acute (3) Acute renal insufficiency Status: Acute (4) Pleural effusion, right Status: Acute (5) Ascites Status: Acute (6) Obstructive jaundice Status: Acute (7) Acute cholecystitis Status: Acute (8) Atherosclerotic heart disease of [place] coronary artery without angina pectoris Status: Chronic Qualifiers: [place] vs. transplanted heart: [place] heart Qualified Code(s): I25.10 - Atherosclerotic heart disease of [place] coronary artery without angina pectoris Comment: PCI-SNOW-LAD w/ 3.0 x 26 mm Resolute Integrity 01/18/17 (9) Presence of biventricular implantable cardioverter-defibrillator (ICD) Status: Chronic Comment: [employer], (10) Nonischemic cardiomyopathy Status: Chronic (11) Old anterior wall myocardial infarction Status: Chronic (12) Non-rheumatic tricuspid valve insufficiency Status: Chronic (13) Nonrheumatic mitral (valve) insufficiency Status: Chronic (14) Acute on chronic systolic (congestive) heart failure Status: Chronic (15) Essential (primary) hypertension Status: Chronic (16) Secondary pulmonary arterial hypertension Status: Chronic (17) Left bundle branch block Status: Chronic (18) Dyslipidemia Status: Chronic (19) Bladder cancer Status: Chronic History of Present Illness Date of Admission: 12/08/19 Chief Complaint: nausea and vomiting The patient is a 79 year old M with a significant history of CAD status post stent; heart failure with reduced ejection fraction (echocardiogram on 01/12/2019 showed EF of 25%); and with ICD who presented at the emergency department with 1 week history of nausea and vomiting. Associated with his symptoms is generalized weakness. Ultrasound of the gallbladder was remarkable for multiple gallstones; mild gallbladder wall thickening; right pleural effusion and mild ascites. Emergent department doctor discussed the case with General Surgeon, Dr. Youssef who saw patient at the ED; and will follow. Past Medical History Past Medical History (Chronic Problems): Chronic Problems (Last Reviewed 12/09/19 @ 00:[address] Devon Campbell MD) Atherosclerotic heart disease of [place] coronary artery without angina pectoris (Chronic) PCI-SNOW-LAD w/ 3.0 x 26 mm Resolute Integrity 01/18/17 Presence of biventricular implantable cardioverter-defibrillator (ICD) (Chronic 02/10/15) [employer], Nonischemic cardiomyopathy (Chronic) Old anterior wall myocardial infarction (Chronic) Non-rheumatic tricuspid valve insufficiency (Chronic) Nonrheumatic mitral (valve) insufficiency (Chronic) Acute on chronic systolic (congestive) heart failure (Chronic) Essential (primary) hypertension (Chronic) Secondary pulmonary arterial hypertension (Chronic) Left bundle branch block (Chronic) Dyslipidemia (Chronic) Bladder cancer (Chronic) Medical History: Medical History (Last Reviewed 12/09/19 @ 00:[address] Devon Campbell MD) Atherosclerotic heart disease of [place] coronary artery without angina pectoris (Chronic) I25.10 PCI-SNOW-LAD w/ 3.0 x 26 mm Resolute Integrity 01/18/17 Nonischemic cardiomyopathy (Chronic) I42.8 Old anterior wall myocardial infarction (Chronic) I25.2 Paroxysmal supraventricular tachycardia (Resolved) I47.1 AVNRT ablation of slow pathway 06/2015 Non-rheumatic tricuspid valve insufficiency (Chronic) I36.1 Nonrheumatic mitral (valve) insufficiency (Chronic) I34.0 Acute on chronic systolic (congestive) heart failure (Chronic) I50.23 Essential (primary) hypertension (Chronic) I10 Secondary pulmonary arterial hypertension (Chronic) I27.21 Left bundle branch block (Chronic) I44.7 Dyslipidemia (Chronic) E78.5 Bladder cancer (Chronic) C67.9 Alzheimer's dementia G30.9, F02.80 Carotid bruit R09.89 Hypothyroidism E03.9 NSTEMI (non-ST elevated myocardial infarction) Onset Date: 01/18/17 I21.4 Non-sustained ventricular tachycardia I47.2 Obstructive sleep apnea G47.33 Paroxysmal atrial fibrillation I48.0 Type 2 diabetes mellitus E11.9 Atrial tachycardia (Inactive) I47.1 Ventricular tachycardia (Inactive) I47.2 Allergies crestor Adverse Reaction (Severe, Uncoded 12/08/19 18:15) Myalgias Home Medications: Ambulatory Orders Medication Instructions Recorded [place]-3 Fatty Acids/Fish Oil 2 ea PO BID 10/23/15 [[place] 3 1,000 mg Softgel] Rivastigmine Tartrate 4.5 mg PO BID 10/23/15 [Rivastigmine] Tamsulosin HCl [Flomax] 0.4 mg PO QHS 10/23/15 cholecalciferol (vitamin D3) 25 2,000 unit PO DAILY cap 09/15/18 mcg (1,000 unit) capsule esomeprazole magnesium 20 mg 20 mg PO DAILY PRN cap 09/15/18 capsule,delayed release levothyroxine 100 mcg tablet 100 mcg PO DAILY 09/15/18 vitamin B complex 1 tab PO DAILY 09/15/18 Acetaminophen [Tylenol Tablet] 650 mg PO Q6H PRN PRN tab 01/10/19 aspirin 81 mg tablet,delayed 81 mg PO DAILY@0800 #90 tab 03/27/19 release atorvastatin 40 mg tablet 40 mg PO QHS #90 tab 08/10/19 furosemide 40 mg tablet 40 mg PO DAILY #0 tab 11/26/19 Carvedilol 6.25 mg PO BID 12/08/19 Ondansetron [Zofran Odt] 4 mg PO Q4H PRN PRN 12/08/19 Surgical History: Surgical History (Last Reviewed 12/09/19 @ 00:[address] Devon Campbell MD) History of coronary artery stent placement (Resolved) Onset Date: 01/18/17 Z95.5 PCI-SNOW-LAD w/ 3.0 x 26 mm Resolute Integrity 01/18/17 Presence of biventricular implantable cardioverter-defibrillator (ICD) (Chronic) Onset Date: 02/10/15 Z95.810 [employer], History of radiofrequency ablation procedure for cardiac arrhythmia Onset Date: 06/2015 Z98.890 AVNRT ablation of slow pathway Surgical History: appendectomy, herniorrhaphy, - - ICD placement, ablation for SVT Psychiatric History: No pertinent psych hx Lives: Spouse/ Significant Other Smoking Status: Never smoker Alcohol: None Drugs: None - *Family History Maternal Family History: Family History (Last Reviewed 12/09/19 @ 00:[address] Devon Campbell MD) Father CVA (cerebral vascular accident) Diabetes Hypertension HLD (hyperlipidemia) Mother CVA (cerebral vascular accident) Hypertension HLD (hyperlipidemia) Brother Diabetes Brother Diabetes Sister Diabetes Hypertension Sister Hypertension Daughter Epilepsy History Items: - - Noncontributory. Paternal Family History: Family History (Last Reviewed 12/09/19 @ 00:[address] Devon Campbell MD) Father CVA (cerebral vascular accident) Diabetes Hypertension HLD (hyperlipidemia) Mother CVA (cerebral vascular accident) Hypertension HLD (hyperlipidemia) Brother Diabetes Brother Diabetes Sister Diabetes Hypertension Sister Hypertension Daughter Epilepsy History Items: No pertinent history Review of Systems Constitutional: Reports: Anorexia, Chills, Weakness. Denies: Fever, Weight Change HEENT: Denies: Head Aches, Sinus Congestion, Sinus Drainage Cardiovascular: Denies: Chest Pain, Palpitations Respiratory: Denies: Cough, Shortness of breath at rest, Sputum production Gastrointestinal: Reports: Nausea, Vomiting. Denies: Abdominal Pain Genitourinary: Denies: Dysuria Musculoskeletal: Denies: Joint Pain, Joint Tenderness Skin: Denies: Rash, Wounds Neurological: Denies: Numbness, Tingling, Focal weakness Psychiatric: Denies: Anxiety, Depression, Homicidal Ideations, Suicidal Ideations Hematologic/ Lymphatic: Denies: Easy Bruising, Easy Bleeding VTE Information - Inpt Only VTE Present on Admission: No VTE Mechan Device Prophylaxis: SCD's VTE Pharm Prophylaxis ordered?: No Patient Problems: Active and Suspected Problems (Last Reviewed 12/09/19 @ 00:[address] Devon Campbell MD) Ascending cholangitis (Acute) Septic shock (Acute) Acute renal insufficiency (Acute) Pleural effusion, right (Acute) Ascites (Acute) Obstructive jaundice (Acute) Acute cholecystitis (Acute) - Physical Exam Vitals/I&O's: Vital Signs Temp Pulse Resp BP Pulse Ox 97 F L 70 20 H 111/73 99 12/08/19 20:21 12/08/19 20:21 12/08/19 20:21 12/08/19 20:21 12/08/19 20:21 Oxygen Flow Rate (L/min) 2 Oxygen Delivery Method Nasal Cannula Weight: 88.6 kg Body Mass Index (BMI) 26.4 Finger Stick Blood Glucose 116 Intake and Output for Last 24 Hours 12/06/19 12/07/19 12/08/19 23:59 23:59 23:59 Intake Total 2099 Balance 2099 General: Alert, Oriented x3, Cooperative HEENT: Atraumatic, PERRLA, EOMI, Normocephalic Neck: Supple, Trachea Midline Lungs: Clear to auscultation, Normal air movement Cardiovascular: Regular rate, Normal S1, Normal S2, No murmurs Abdomen: Bowel Sounds Present, Soft, Non Tender Extremities: No edema, Capillary Refill Less than 3 Seconds Skin: No rashes, No breakdown Musculoskeletal: No Tenderness to Palpation of Joints or Extremities Neurological: Cranial nerves II-XII grossly intact Psych/Mental Status: Normal Affect, Appropriate Laboratory Results 12/08/19 18:23: WBC 11.8 H, RBC 5.17, Hgb 15.1, Hct 47.5, MCV 91.9, MCH 29.2, MCHC 31.8 L, RDW Std Deviation 53.4 H, RDW Coeff of [place] 17.4 H, Plt Count 190, MPV 11.5, Immature Gran % (Auto) 1.000 H, Neut % (Auto) 81.9 H, Lymph % (Auto) 5.4 L, [place] % (Auto) 11.6 H, Eos % (Auto) 0.0, Baso % (Auto) 0.1, Absolute Neuts (auto) 9.6 H, Absolute Lymphs (auto) 0.64 L, Nucleated RBC % 0.3, Differential Comment SCANNED 12/08/19 18:23: Sodium 132 L, Potassium 5.6 H, Chloride 97 L, Carbon Dioxide 25.0, Anion Gap 10, BUN 58 H, Creatinine 1.75 H, Estim Creat Clear Calc 36.34, Est GFR (MDRD) Af Amer 48 L, Est GFR (MDRD) Non-Af 40 L, BUN/Creatinine Ratio 33.1 H, Glucose 116 H, Calcium 9.3, Total Bilirubin 2.50 H, AST 335 H, ALT 319 H, Alkaline Phosphatase 318 H, Total Protein 7.4, Albumin 3.1 L, Globulin 4.3 H, Albumin/Globulin Ratio 0.7 L 12/08/19 18:23: Lactic Acid 4.5 H* 12/08/19 20:15: Urine Color Jo[place], Urine Clarity Sl. Cloudy, Urine pH 5.0, Ur Specific [place] 1.020, Urine Protein 30 H, Urine Glucose (UA) Normal, Urine Ketones Negative, Urine Occult Blood Negative, Urine Nitrite Negative, Urine Bilirubin Negative, Urine Urobilinogen 4 H, Ur Leukocyte Esterase Negative, Urine RBC 0 SEEN, Urine WBC 0 SEEN, Ur Squamous Epith Cells 0 SEEN, Ur Transition Epith Cell 0-5 SEEN, Ur Renal Epithelial Cell 0-5 SEEN, Amorphous Sediment 3+, Urine Bacteria 0 SEEN, Hyaline Casts 25-50 SEEN, Urine Mucus 0 SEEN Current Medications Sodium Chloride () 1,000 mls @ 1,000 mls/hr IV .Q1H ONE Stop: 12/08/19 21:15 Last Admin: 12/08/19 20:20 Dose: 1,000 mls/hr Documented by: Assessment/Plan All Active Problems (Last Reviewed 12/09/19 @ 00:[address] Devon Campbell MD) Ascending cholangitis (Acute) Septic shock (Acute) Acute renal insufficiency (Acute) Pleural effusion, right (Acute) Ascites (Acute) Obstructive jaundice (Acute) Acute cholecystitis (Acute) History of coronary artery stent placement (Resolved 01/18/17) Paroxysmal supraventricular tachycardia (Resolved) Dyspnea (Resolved) Mid back pain (Resolved) The patient is a 79 year old M with a significant history of CAD status post stent; heart failure with reduced ejection fraction (echocardiogram on 01/12/2019 showed EF of 25%); and with ICD presented emergency department with 1 week history of nausea and vomiting; weakness; hyperkalemia; SURESH; elevated liver enzymes; hyperbilirubinemia and sonographic findings of multiple gallstones consistent probable ascending acute cholangitis. Ascending acute cholangitis. Patient noted lactic acidosis of 4.5 at emergency department. Marginal blood pressures requiring fluid boluses at the emergency department. Patient received Zosyn at the emergency department. Which antibiotics to Merrem. Will consult parking line painter. Patient placed in intensive care unit. General surgery is following. Per discussion between emergency department doctor and general surgery will place patient on n.p.o. after midnight. Trend CBC and BMP. SURESH On presentation creatinine was 1.75 Review of old records shows a creatinine baseline around 1.25. Likely secondary to hypovolemia. Avoid nephrotoxic's. Trend BMP. IV hydration. Hyperkalemia Likely secondary to SURESH and dehydration. IV fluids as above. Heart failure reduced ejection fraction: Echocardiogram 25% as in HPI. Would hold all heart failure medication as we keep patient n.p.o. Patient with hypotension. Hypothyroidism On home Synthroid. Hold for n.p.o. status. Resume when appropriate. Ascites and right pleural effusion Likely secondary to Acute cholangitis. Management as above. Type 2 diabetes mellitus Hyperglycemia on presentation, mild. Trend BMP. DVT prophylaxis With patient being a candidate for possible surgical intervention will order SCD. Avoid chemical chemoprophylaxis at this time. Inpatient E&M: 97915 Init Hosp L3
--- NOTE | 2019-12-08 21:13 | PCM.CONS.GEN ---
Problem List (1) Obstructive jaundice Status: Acute (2) Acute cholecystitis Status: Acute Reason for Consult Date of Consultation: 12/08/19 History of Present Illness: The patient is a 79 year old M who presented with a 6-day history of nausea and vomiting. The patient reports he is not having much abdominal pain. He is not having any fevers or chills and denies any cough or shortness of breath. Patient has never had any issues with his gallbladder before. He says he has had decreased urine output. Past Medical History Past Medical History (Chronic Problems): Chronic Problems (Last Reviewed 09/22/19 @ 10:[address] 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) I36.1 Nonrheumatic mitral (valve) insufficiency (Chronic) I34.0 Acute on chronic systolic (congestive) heart failure (Chronic) I50.23 Essential (primary) hypertension (Chronic) I10 Secondary pulmonary arterial hypertension (Chronic) I27.21 Left bundle branch block (Chronic) I44.7 Dyslipidemia (Chronic) E78.5 Bladder cancer (Chronic) C67.9 Alzheimer's dementia G30.9, F02.80 Carotid bruit R09.89 Hypothyroidism E03.9 NSTEMI (non-ST elevated myocardial infarction) Onset Date: 01/18/17 I21.4 Non-sustained ventricular tachycardia I47.2 Obstructive sleep apnea G47.33 Paroxysmal atrial fibrillation I48.0 Type 2 diabetes mellitus E11.9 Atrial tachycardia (Inactive) I47.1 Ventricular tachycardia (Inactive) I47.2 Allergies crestor Adverse Reaction (Severe, Uncoded 12/08/19 18:15) Myalgias Home Medications: Ambulatory Orders Medication Instructions Recorded Orient-3 Fatty Acids/Fish Oil 2 ea PO BID 10/23/15 [Orient 3 1,000 mg Softgel] Rivastigmine Tartrate 4.5 mg PO BID 10/23/15 [Rivastigmine] Tamsulosin HCl [Flomax] 0.4 mg PO QHS 10/23/15 cholecalciferol (vitamin D3) 25 2,000 unit PO DAILY cap 09/15/18 mcg (1,000 unit) capsule esomeprazole magnesium 20 mg 20 mg PO DAILY PRN cap 09/15/18 capsule,delayed release levothyroxine 100 mcg tablet 100 mcg PO DAILY 09/15/18 vitamin B complex 1 tab PO DAILY 09/15/18 Acetaminophen [Tylenol Tablet] 650 mg PO Q6H PRN PRN tab 01/10/19 aspirin 81 mg tablet,delayed 81 mg PO DAILY@0800 #90 tab 03/27/19 release atorvastatin 40 mg tablet 40 mg PO QHS #90 tab 08/10/19 furosemide 40 mg tablet 40 mg PO DAILY #0 tab 11/26/19 Carvedilol 6.25 mg PO BID 12/08/19 Ondansetron [Zofran Odt] 4 mg PO Q4H PRN PRN 12/08/19 Surgical History: Surgical History (Last Reviewed 09/22/19 @ 10:[address] Carlos Langley MD) History of coronary artery stent placement (Resolved) Onset Date: 01/18/17 Z95.5 PCI-SNOW-LAD w/ 3.0 x 26 mm Resolute Integrity 01/18/17 Presence of biventricular implantable cardioverter-defibrillator (ICD) (Chronic) Onset Date: 02/10/15 Z95.810 [employer], History of radiofrequency ablation procedure for cardiac arrhythmia Onset Date: 06/2015 Z98.890 AVNRT ablation of slow pathway Surgical History: appendectomy, herniorrhaphy, - - ICD placement, ablation for SVT Psychiatric History: No pertinent psych hx Lives: Spouse/ Significant Other Smoking Status: Never smoker Alcohol: None Drugs: None - *Family History Maternal Family History: Family History (Last Reviewed 09/22/19 @ 10:[address] Carlos Langley MD) Father CVA (cerebral vascular accident) Diabetes Hypertension HLD (hyperlipidemia) Mother CVA (cerebral vascular accident) Hypertension HLD (hyperlipidemia) Brother Diabetes Brother Diabetes Sister Diabetes Hypertension Sister Hypertension Daughter Epilepsy History Items: - - Noncontributory. Paternal Family History: Family History (Last Reviewed 09/22/19 @ 10:[address] Carlos Langley MD) Father CVA (cerebral vascular accident) Diabetes Hypertension HLD (hyperlipidemia) Mother CVA (cerebral vascular accident) Hypertension HLD (hyperlipidemia) Brother Diabetes Brother Diabetes Sister Diabetes Hypertension Sister Hypertension Daughter Epilepsy History Items: No pertinent history Review of Systems Constitutional: Reports: Anorexia. Denies: Chills, Fever HEENT: Denies: Difficulty Swallowing Cardiovascular: Denies: Chest Pain Respiratory: Denies: Cough, Shortness of Breath Gastrointestinal: Reports: Nausea, Vomiting. Denies: Constipation, Diarrhea, Dyspepsia, Hematemesis Genitourinary: Denies: Dysuria Skin: Denies: Jaundice Hematologic/ Lymphatic: Denies: Anemia Patient Problems: Active and Suspected Problems (Last Reviewed 09/22/19 @ 10:[address] Carlos Langley MD) Ascending cholangitis (Acute) Septic shock (Acute) Acute renal insufficiency (Acute) Pleural effusion, right (Acute) Ascites (Acute) Obstructive jaundice (Acute) Acute cholecystitis (Acute) - Physical Exam Vitals/I&O's: Vital Signs Temp Pulse Resp BP Pulse Ox 97 F L 70 20 H 111/73 99 12/08/19 20:21 12/08/19 20:21 12/08/19 20:21 12/08/19 20:21 12/08/19 20:21 Oxygen Flow Rate (L/min) 2 Oxygen Delivery Method Nasal Cannula Weight: 195 lb 5.273 oz Body Mass Index (BMI) 26.4 Finger Stick Blood Glucose 116 Intake and Output for Last 24 Hours 12/06/19 12/07/19 12/08/19 23:59 23:59 23:59 Intake Total 2099 Balance 2099 General: Alert, Oriented x3 Neck: No JVD Lungs: Normal air movement Cardiovascular: Regular rate, Regular Rhythm Abdomen: Soft, Non Tender, Non-Distended Extremities: No clubbing Skin: No rashes Musculoskeletal: No Muscle Wasting Neurological: Cranial nerves II-XII grossly intact Psych/Mental Status: Normal Affect Laboratory Results 12/08/19 18:23: WBC 11.8 H, RBC 5.17, Hgb 15.1, Hct 47.5, MCV 91.9, MCH 29.2, MCHC 31.8 L, RDW Std Deviation 53.4 H, RDW Coeff of [place] 17.4 H, Plt Count 190, MPV 11.5, Immature Gran % (Auto) 1.000 H, Neut % (Auto) 81.9 H, Lymph % (Auto) 5.4 L, [place] % (Auto) 11.6 H, Eos % (Auto) 0.0, Baso % (Auto) 0.1, Absolute Neuts (auto) 9.6 H, Absolute Lymphs (auto) 0.64 L, Nucleated RBC % 0.3, Differential Comment SCANNED 12/08/19 18:23: Sodium 132 L, Potassium 5.6 H, Chloride 97 L, Carbon Dioxide 25.0, Anion Gap 10, BUN 58 H, Creatinine 1.75 H, Estim Creat Clear Calc 36.34, Est GFR (MDRD) Af Amer 48 L, Est GFR (MDRD) Non-Af 40 L, BUN/Creatinine Ratio 33.1 H, Glucose 116 H, Calcium 9.3, Total Bilirubin 2.50 H, AST 335 H, ALT 319 H, Alkaline Phosphatase 318 H, Total Protein 7.4, Albumin 3.1 L, Globulin 4.3 H, Albumin/Globulin Ratio 0.7 L 12/08/19 18:23: Lactic Acid 4.5 H* 12/08/19 20:15: Urine Color Jojo, Urine Clarity Sl. Cloudy, Urine pH 5.0, Ur Specific [place] 1.020, Urine Protein 30 H, Urine Glucose (UA) Normal, Urine Ketones Negative, Urine Occult Blood Negative, Urine Nitrite Negative, Urine Bilirubin Negative, Urine Urobilinogen 4 H, Ur Leukocyte Esterase Negative, Urine RBC 0 SEEN, Urine WBC 0 SEEN, Ur Squamous Epith Cells 0 SEEN, Ur Transition Epith Cell 0-5 SEEN, Ur Renal Epithelial Cell 0-5 SEEN, Amorphous Sediment 3+, Urine Bacteria 0 SEEN, Hyaline Casts 25-50 SEEN, Urine Mucus 0 SEEN Clinical Impression(s) from Imaging Studies Gallbladder Ultrasound 12/08/19 19:09 IMPRESSION: Multiple gallstones. Mild gallbladder wall thickening. Normal common bile duct. Right pleural effusion. Mild ascites. Electronically Signed: Lex Renee MD at 20:04 EDT Tel , Service support , Current Medications Sodium Chloride () 1,000 mls @ 1,000 mls/hr IV .Q1H ONE Stop: 12/08/19 21:15 Last Admin: 12/08/19 20:20 Dose: 1,000 mls/hr Documented by: Assessment/Plan All Active Problems (Last Reviewed 09/22/19 @ 10:[address] Carlos Langley MD) Ascending cholangitis (Acute) Septic shock (Acute) Acute renal insufficiency (Acute) Pleural effusion, right (Acute) Ascites (Acute) Obstructive jaundice (Acute) Acute cholecystitis (Acute) History of coronary artery stent placement (Resolved 01/18/17) Paroxysmal supraventricular tachycardia (Resolved) Dyspnea (Resolved) Mid back pain (Resolved) 79-year-old male with acute cholecystitis and obstructive jaundice 1. The patient has elevated white count with a left shift and his ultrasound shows a 4 mm gallbladder wall with gallstones. The gallbladder ultrasound was not the best quality and his gallbladder did not appear overly distended. 2. I am currently unsure as to the etiology of his elevated liver enzymes. It may be due to acute cholecystitis or obstructed common bile duct. His common bile duct is normal size. I will have the patient admitted to the hospitalist in the ICU for rehydration and optimization before surgery. If his liver enzymes go up further by morning I will take him for ERCP tomorrow. If liver enzymes decrease I may perform an MRCP or a laparoscopic cholecystectomy with intraoperative cholangiogram. The patient has several comorbidities and would be high risk for surgery. I discussed all this with him and he was in agreement with the plan. Plan for admission and antibiotics and n.p.o. with IV fluids overnight. Recheck labs in the morning. Solomon Youssef MD Pager: [facility] [address] [place] [address], [address] [place] [address] Office:
--- NOTE | 2019-12-08 21:42 | ED.RN ---
called , Yarelis to update on patient. pt also spoke with his on the phone.
[2019-12-08 22:27] LABS: Reflex Lactate? Y
[2019-12-08] MEDS: 0.9% Normal Saline 1,000 ML 75 ML IV (22:47)
[2019-12-08 23:36] LABS: Lactic Acid 2.6 mmol/L (0.4-1.9)
[2019-12-09] VITALS (26 sets, daily range): BP systolic 86–115; BP diastolic 59–101; PULSE 60–85; RESP 14–33; TEMP 36.2–36.9; O2SAT 90–100
[2019-12-09 04:35] LABS: Absolute Lymphocyte Count 0.81 X10^3/uL (0.83-4.51); Absolute Neutrophil Count 5.8 X10^3/uL (2.0-7.7); Basophil# 0.01 X10^3/uL; Basophil% 0.1 % (0-1); Eosinophil# 0.01 X10^3/uL; Eosinophils% 0.1 % (0-5); Hematocrit 43.2 % (40-54); Hemoglobin 13.3 g/dL (13.0-16.5); Lymphocyte # 0.81 X10^3/ul (4.0); Lymphocyte % 10.9 % (19-41); Mean Corp Hgb Conc 30.8 g/dL (32-36); Mean Corpuscular Hgb 28.1 pg (27.0-32.0); Mean Corpuscular Volume 91.3 fL (80-94); Mean Platelet Vol. 11.4 fl (6.2-12.0); Monocyte# 0.76 X10^3/uL; Monocyte% 10.2 % (0-10); NRBC Flagged by Analyzer 0.3 % (0-5); Platelet Count 184 K/mm3 (150-450); RBC Distribution Width CV 15.9 % (11.6-14.6); RBC Distribution Width SD 52.7 fl (35.1-43.9); Red Blood Count 4.73 M/mm3 (4.6-6.2); White Blood Count 7.4 K/mm3 (4.4-11.0)
[2019-12-09 04:51] LABS: Anion Gap 7 (5-15); BUN 54 mg/dL (7-18); BUN/Creat Ratio 38.3 RATIO (10-20); Calcium,Total 8.2 mg/dL (8.5-10.1); Chloride 100 mmol/L (98-107); Creatinine, Serum 1.41 mg/dL (0.70-1.30); EST Glomerular Filtration Rate 51 mL/min (>60); Est Glom Filt Rate - Afr Amer 62 mL/min (>60); Glucose 138 mg/dL (74-106); Potassium 4.7 mmol/L (3.5-5.1); Sodium Level 134 mmol/L (136-145)
[2019-12-09 05:47] LABS: AST(SGOT) 334 U/L (15-37); Alanine Aminotransfer ALT/SGPT 309 U/L (16-61); Albumin, Serum 2.5 g/dL (3.2-5.0); Alkaline Phosphatase 248 U/L (45-117); Bilirubin, Direct 1.01 mg/dL (0.00-0.30); Globulin 3.8 g/dL (2.2-4.2); Protein, Total 6.3 g/dL (6.4-8.2)
--- NOTE | 2019-12-09 08:11 | CT_ITS ---
STUDY: CT ABDOMEN AND PELVIS WITHOUT CONTRAST REASON FOR EXAM: Male, 79 years old. ELEVATED LIVER ENZYMES, N/V X 6 DAYS, RADIATION DOSAGE (If Supplied By Facility): CTDIvol = ( 14.86 ) mGy, DLP = ( 1163.88 ) mGycm TECHNIQUE: Transaxial images were obtained from the dome of the diaphragm to the symphysis pubis without oral contrast, and without intravenous contrast. Sagittal and coronal images were reconstructed. Individualized dose optimization techniques were used for this CT. COMPARISON: None. FINDINGS: Small bilateral effusions. 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 The dual-chamber pacemaker is seen. Coronary artery calcification. Small amount of ascites. There is decreased attenuation of the liver consistent with steatosis. Perihepatic and perisplenic fluid. The gallbladder is contracted. Small gallstones are seen in the neck of the gallbladder. No significant pericholecystic fluid is seen at this time. I suspect 3 small stones in the common bile duct. The largest measures 5.4 mm. Normal spleen. There is mild enlargement of the pancreas with donny-pancreatic edema suggesting acute pancreatitis. No abnormal pancreatic fluid collection is seen. Normal bilateral adrenal glands. Multiple bilateral renal cysts. Mild degree of nonspecific bilateral perinephric stranding. Moderate sized hiatal hernia. Normal small intestine. There are multiple colonic diverticula consistent with diverticulosis. The appendix is visualized and appears normal. There is diffuse atherosclerotic calcification of the abdominal aorta, without a demonstrated aneurysm. There is evidence of a tight stenosis at the origin of the superior mesenteric Normal inferior vena cava. Normal retroperitoneum. Normal urinary bladder. Ascitic fluid in the pelvis. Small amount of fluid seen in the paracolic gutters bilaterally. Normal abdominal wall. There are degenerative changes of the visualized lumbar spine. CT/Abdomen/Pelvis W IV Cont ONLY IMPRESSION: Contracted gallbladder containing small gallstones in the neck of the gallbladder. 3 small stones seen in the common bile duct the largest measuring 5.4 mm. Marked degree of atherosclerosis of the aorta and major visceral branches. Ascites. Diffuse fatty infiltration of the liver. Electronically Signed: Calin Barton, at 15:16 EDT , Service support ,
--- NOTE | 2019-12-09 08:13 | ECHOD_ITS ---
Reason For Study: CHF Procedure This was a 2D Doppler, Color Flow transthoracic echocardiogram. The study was technically difficult. Exam performed portable in ICU/CCU. Left Ventricle Severely dilated left ventricle. The estimated ejection fraction is 10 %. Septal motion consistent with IVCD. Anterio-Basal: Akinetic. Basal anteroseptal: Akinetic. Mid-Anterior : Akinetic. Mid- Lateral : Akinetic. Mid-Posterior: Akinetic. Anterior [place] : Akinetic. Right Ventricle Moderately dilated right ventricle. ICD or pacer leads identified within the right ventricle. Moderate global right ventricular systolic dysfunction. Atria The left atrium is severely enlarged. Normal right atrium. ICD or pacer leads identified within the right atrium. Normal atrial septum. Mitral Valve The mitral valve is structurally normal. No prolapse or stenosis seen. Mild (1+) mitral valve insufficiency. Tricuspid Valve Normal tricuspid valve. Moderately severe (3+) tricuspid valve insufficiency. Right ventricular systolic pressure estimated to be 62 mmHg. Severe pulmonary hypertension. Aortic Valve Trisinus/trileaflet aortic valve. Mild diffuse aortic valve thickening. There is no aortic stenosis. Trivial aortic valve insufficiency. Pulmonic Valve Normal pulmonic valve. Trivial pulmonic valve insufficiency. Great Vessels Normal aortic root. Mild atherosclerosis of the aortic arch. The inferior vena cava is dilated. No collapse of the inferior vena cava. Pericardium/Pleural No pericardial effusion. Medication Unable to use Definity due to elevated PAP. MMode/2D Measurements & Calculations LVIDd: 5.9 cm IVSd: 0.98 cm Ao root diam: 3.9 cm LVIDs: 5.4 cm LVPWd: 1.1 cm RVDd: 4.6 cm FS: 8.8 % LAV(MOD-bp): 82.6 ml LVAd ap4: 41.3 cm2 SV(MOD-sp4): 19.8 ml LAV(MOD-bp) Indexed: 39.0 ml/m2 EDV(MOD-sp4): 155.4 ml LAV(MOD-sp2): 89.1 ml EDV(sp4-el): 165.4 ml LAV(MOD-sp4): 76.9 ml LVAs ap4: 37.8 cm2 ESV(MOD-sp4): 135.5 ml ESV(sp4-el): 144.8 ml EF(MOD-sp4): 12.8 % EF(sp4-el): 12.5 % SV(sp4-el): 20.6 ml LA A4 area: 25.4 cm2 LA dimension(2D): 4.6 cm RA A4 area: 16.0 cm2 Doppler Measurements & Calculations Ao V2 max: 70.5 cm/sec LV V1 max: 35.6 cm/sec PA V2 max: 70.4 cm/sec Ao max P.1 mmHg LV V1 max P.52 mmHg PI end-d mitchell: 157.9 cm/sec TR max mitchell: 361.4 cm/sec TR max P.3 mmHg Interpretation Summary Severely dilated left ventricle. The estimated ejection fraction is 10 %. Moderately dilated right ventricle. Moderate global right ventricular systolic dysfunction. The left atrium is severely enlarged. Mild (1+) mitral valve insufficiency. Moderately severe (3+) tricuspid valve insufficiency. Right ventricular systolic pressure estimated to be 62 mmHg. Severe pulmonary hypertension. The inferior vena cava is dilated No collapse of the inferior vena cava. Compared to echo report dated 01/09/2019, LV function appears to have deteriorated from 25% to around 10%, and RVSP has decreased from 75 to 62 mmHg. Upon further review of the actual echocardiogram film, no appreciable changes noted. Ordering Physician: Solomon Youssef Referring Physician: VIKTORIYA GÓMEZ Performed By: Deanna Guardado, NNEKA, RVT
--- NOTE | 2019-12-09 09:04 | PCM.PN.SRG ---
Patient Problems: Active and Suspected Problems (Last Reviewed 12/09/19 @ 00:[address] Devon Campbell MD) Ascending cholangitis (Acute) Septic shock (Acute) Acute renal insufficiency (Acute) Pleural effusion, right (Acute) Ascites (Acute) Obstructive jaundice (Acute) Acute cholecystitis (Acute) Subjective: Patient reports no abdominal pain or nausea or vomiting. No fevers or chills. - Physical Exam Vitals/I&O's: Vital Signs Temp Pulse Resp BP Pulse Ox 98.4 F 73 14 104/82 H 99 12/09/19 04:00 12/09/19 07:00 12/09/19 07:00 12/09/19 07:00 12/09/19 07:00 Oxygen Flow Rate (L/min) 2 Oxygen Delivery Method Nasal Cannula Weight: 197 lb 8.547 oz Body Mass Index (BMI) 26.7 Finger Stick Blood Glucose 116 Intake and Output for Last 24 Hours 12/07/19 12/08/19 12/09/19 23:59 23:59 23:59 Intake Total 3161.25 / 3386.25 225 / 225 Output Total 400 / 400 Balance 3161.25 / 3386.25 -175 / -175 General: Alert, Oriented x3 Neck: No JVD Lungs: Normal air movement Cardiovascular: Regular rate Abdomen: Soft, Non Tender, Non-Distended Laboratory Results 12/08/19 18:23: WBC 11.8 H, RBC 5.17, Hgb 15.1, Hct 47.5, MCV 91.9, MCH 29.2, MCHC 31.8 L, RDW Std Deviation 53.4 H, RDW Coeff of [place] 17.4 H, Plt Count 190, MPV 11.5, Immature Gran % (Auto) 1.000 H, Neut % (Auto) 81.9 H, Lymph % (Auto) 5.4 L, [place] % (Auto) 11.6 H, Eos % (Auto) 0.0, Baso % (Auto) 0.1, Absolute Neuts (auto) 9.6 H, Absolute Lymphs (auto) 0.64 L, Nucleated RBC % 0.3, Differential Comment SCANNED 12/08/19 18:23: Sodium 132 L, Potassium 5.6 H, Chloride 97 L, Carbon Dioxide 25.0, Anion Gap 10, BUN 58 H, Creatinine 1.75 H, Estim Creat Clear Calc 36.34, Est GFR (MDRD) Af Amer 48 L, Est GFR (MDRD) Non-Af 40 L, BUN/Creatinine Ratio 33.1 H, Glucose 116 H, Calcium 9.3, Total Bilirubin 2.50 H, AST 335 H, ALT 319 H, Alkaline Phosphatase 318 H, Total Protein 7.4, Albumin 3.1 L, Globulin 4.3 H, Albumin/Globulin Ratio 0.7 L 12/08/19 18:23: Lactic Acid 4.5 H* 12/08/19 20:15: Urine Color [place]jo, Urine Clarity Sl. Cloudy, Urine pH 5.0, Ur Specific [place] 1.020, Urine Protein 30 H, Urine Glucose (UA) Normal, Urine Ketones Negative, Urine Occult Blood Negative, Urine Nitrite Negative, Urine Bilirubin Negative, Urine Urobilinogen 4 H, Ur Leukocyte Esterase Negative, Urine RBC 0 SEEN, Urine WBC 0 SEEN, Ur Squamous Epith Cells 0 SEEN, Ur Transition Epith Cell 0-5 SEEN, Ur Renal Epithelial Cell 0-5 SEEN, Amorphous Sediment 3+, Urine Bacteria 0 SEEN, Hyaline Casts 25-50 SEEN, Urine Mucus 0 SEEN 12/08/19 23:00: Lactic Acid 2.6 H* 12/09/19 04:20: WBC 7.4, RBC 4.73, Hgb 13.3, Hct 43.2, MCV 91.3, MCH 28.1, MCHC 30.8 L, RDW Std Deviation 52.7 H, RDW Coeff of [place] 15.9 H, Plt Count 184, MPV 11.4, Immature Gran % (Auto) 0.700, Neut % (Auto) 78.0 H, Lymph % (Auto) 10.9 L, [place] % (Auto) 10.2 H, Eos % (Auto) 0.1, Baso % (Auto) 0.1, Absolute Neuts (auto) 5.8, Absolute Lymphs (auto) 0.81 L, Nucleated RBC % 0.3 12/09/19 04:20: Sodium 134 L, Potassium 4.7, Chloride 100, Carbon Dioxide 27.0, Anion Gap 7, BUN 54 H, Creatinine 1.41 H, Estim Creat Clear Calc 45.10, Est GFR (MDRD) Af Amer 62, Est GFR (MDRD) Non-Af 51 L, BUN/Creatinine Ratio 38.3 H, Glucose 138 H, Calcium 8.2 L 12/09/19 04:20: Total Bilirubin 1.50 H, Direct Bilirubin 1.01 H, AST 334 H, ALT 309 H, Alkaline Phosphatase 248 H, Total Protein 6.3 L, Albumin 2.5 L, Globulin 3.8 12/09/19 04:20: Hemoglobin A1c Pending Current Medications Dextrose (D50w Syringe) 0 gm IV X1 PRN; Protocol PRN Reason: Hypoglycemia Glucagon () 1 mg IM .X1 PRN PRN Reason: Hypoglycemia Sodium Chloride () 1,000 mls @ 75 mls/hr IV .[id number] MANINDER Last Infusion: 12/08/19 23:30 Dose: 75 mls/hr Documented by: Meropenem 500 mg/ Sodium (Chloride) 60 mls @ 100 mls/hr IV Q12 MANINDER Last Infusion: 12/08/19 23:30 Dose: Infused Documented by: Sodium Chloride () 250 mls @ 15 mls/hr IV .[id number] PRN PRN Reason: Saline Flush Sodium Chloride () 250 mls @ 15 mls/hr IV .[id number] PRN PRN Reason: Additional IVPB Infusion Melatonin (Melatonin) 3 mg PO QHS PRN PRN PRN Reason: INSOMNIA Ondansetron HCl (Zofran) 4 mg IV Q6H PRN PRN PRN Reason: NAUSEA/VOMITING Sodium Chloride () 10 - 40 ml IV UD PRN PRN Reason: SALINE FLUSH Medical Necessity - Tobacco Use Smoking Status: Never smoker Assessment/Plan All Active Problems (Last Reviewed 12/09/19 @ 00:[address] Devon Campbell MD) Ascending cholangitis (Acute) Septic shock (Acute) Acute renal insufficiency (Acute) Pleural effusion, right (Acute) Ascites (Acute) Obstructive jaundice (Acute) Acute cholecystitis (Acute) History of coronary artery stent placement (Resolved 01/18/17) Paroxysmal supraventricular tachycardia (Resolved) Dyspnea (Resolved) Mid back pain (Resolved) 79-year-old male with possible acute cholecystitis 1. The patient responded to antibiotics and fluids. His blood pressure and vital signs are stable. He is not having any abdominal pain at this time but he is also diabetic. The patient had labs drawn this morning. His AST and ALT have remained the same but his total bilirubin has decreased. I am unsure if the elevated liver enzymes are due to inflammation of the liver or obstruction at this point. I will obtain a CT scan as he cannot have an MRCP due to his pacer. 2. I discussed the patient with anesthesia and cardiology. An echo will be obtained. I will have cardiology see the patient as well. He has severe cardiac comorbidities. He his last echo was almost a year ago and that will be repeated. Once I have the echo and CT obtained I will decide if he is safe enough to undergo a laparoscopic cholecystectomy with cholangiogram. The alternative would be cholecystostomy tube. I discussed the treatment plan with the patient's this morning. She is agreeable and informed. 3. Continue antibiotics. Patient may have ice chips and sips but no regular diet. Solomon Youssef MD Pager: [facility] [address] [place] [address], [address] [place] [address] Office:
--- NOTE | 2019-12-09 09:11 | PN_ITS ---
Patient Problems: Active and Suspected Problems (Last Reviewed 12/09/19 @ 00:[address] Devon Campbell MD) Ascending cholangitis (Acute) Septic shock (Acute) Acute renal insufficiency (Acute) Pleural effusion, right (Acute) Ascites (Acute) Obstructive jaundice (Acute) Acute cholecystitis (Acute) Reason for Visit: cholangitis Subjective: No further N/V. Never had any abdominal pain. Vitals/I&O's: Vital Signs Temp Pulse Resp BP Pulse Ox 36.9 C 73 14 104/82 H 99 12/09/19 04:00 12/09/19 07:00 12/09/19 07:00 12/09/19 07:00 12/09/19 07:00 Oxygen Flow Rate (L/min) 2 Oxygen Delivery Method Nasal Cannula Weight: 89.6 kg Body Mass Index (BMI) 26.7 Finger Stick Blood Glucose 116 Intake and Output for Last 24 Hours 12/07/19 12/08/19 12/09/19 23:59 23:59 23:59 Intake Total 3161.25 / 3386.25 225 / 225 Output Total 400 / 400 Balance 3161.25 / 3386.25 -175 / -175 General: Alert, Cooperative, No apparent distress HEENT: Atraumatic, Normocephalic Oral: Moist Mucosa, No Gingival or Mucosal Lesions/ Ulcerations Neck: No Nodes, Trachea Midline Lungs: Clear to auscultation, Normal air movement, No rhonchi, No wheeze, No rales Cardiovascular: Regular rate, Regular Rhythm, Normal S1, Normal S2, No murmurs Abdomen: Bowel Sounds Present, Soft, Non Tender, Non-Distended, No Hepato- splenomegaly, Passing Flatus Extremities: No edema, No Calf Tenderness Psych/Mental Status: Normal Affect, Appropriate Laboratory Results 12/08/19 18:23: WBC 11.8 H, RBC 5.17, Hgb 15.1, Hct 47.5, MCV 91.9, MCH 29.2, MCHC 31.8 L, RDW Std Deviation 53.4 H, RDW Coeff of [place] 17.4 H, Plt Count 190, MPV 11.5, Immature Gran % (Auto) 1.000 H, Neut % (Auto) 81.9 H, Lymph % (Auto) 5.4 L, [place] % (Auto) 11.6 H, Eos % (Auto) 0.0, Baso % (Auto) 0.1, Absolute Neuts (auto) 9.6 H, Absolute Lymphs (auto) 0.64 L, Nucleated RBC % 0.3, Differential Comment SCANNED 12/08/19 18:23: Sodium 132 L, Potassium 5.6 H, Chloride 97 L, Carbon Dioxide 25.0, Anion Gap 10, BUN 58 H, Creatinine 1.75 H, Estim Creat Clear Calc 36.34, Est GFR (MDRD) Af Amer 48 L, Est GFR (MDRD) Non-Af 40 L, BUN/Creatinine Ratio 33.1 H, Glucose 116 H, Calcium 9.3, Total Bilirubin 2.50 H, AST 335 H, ALT 319 H , Alkaline Phosphatase 318 H, Total Protein 7.4, Albumin 3.1 L, Globulin 4.3 H, Albumin/Globulin Ratio 0.7 L 12/08/19 18:23: Lactic Acid 4.5 H* 12/08/19 20:15: Urine Color Jojo, Urine Clarity Sl. Cloudy, Urine pH 5.0, Ur Specific [place] 1.020, Urine Protein 30 H, Urine Glucose (UA) Normal, Urine Ketones Negative, Urine Occult Blood Negative, Urine Nitrite Negative, Urine Bilirubin Negative, Urine Urobilinogen 4 H, Ur Leukocyte Esterase Negative, Urine RBC 0 SEEN, Urine WBC 0 SEEN, Ur Squamous Epith Cells 0 SEEN, Ur Transition Epith Cell 0-5 SEEN, Ur Renal Epithelial Cell 0-5 SEEN, Amorphous Sediment 3+, Urine Bacteria 0 SEEN, Hyaline Casts 25-50 SEEN, Urine Mucus 0 SEEN 12/08/19 23:00: Lactic Acid 2.6 H* 12/09/19 04:20: WBC 7.4, RBC 4.73, Hgb 13.3, Hct 43.2, MCV 91.3, MCH 28.1, MCHC 30.8 L, RDW Std Deviation 52.7 H, RDW Coeff of [place] 15.9 H, Plt Count 184, MPV 11.4, Immature Gran % (Auto) 0.700, Neut % (Auto) 78.0 H, Lymph % (Auto) 10.9 L, [place] % (Auto) 10.2 H, Eos % (Auto) 0.1, Baso % (Auto) 0.1, Absolute Neuts (auto) 5.8, Absolute Lymphs (auto) 0.81 L, Nucleated RBC % 0.3 12/09/19 04:20: Sodium 134 L, Potassium 4.7, Chloride 100, Carbon Dioxide 27.0, Anion Gap 7, BUN 54 H, Creatinine 1.41 H, Estim Creat Clear Calc 45.10, Est GFR (MDRD) Af Amer 62, Est GFR (MDRD) Non-Af 51 L, BUN/Creatinine Ratio 38.3 H, Glucose 138 H, Calcium 8.2 L 12/09/19 04:20: Total Bilirubin 1.50 H, Direct Bilirubin 1.01 H, AST 334 H, ALT 309 H, Alkaline Phosphatase 248 H, Total Protein 6.3 L, Albumin 2.5 L, Globulin 3.8 12/09/19 04:20: Hemoglobin A1c Pending Current Medications Dextrose (D50w Syringe) 0 gm IV X1 PRN; Protocol PRN Reason: Hypoglycemia Glucagon () 1 mg IM .X1 PRN PRN Reason: Hypoglycemia Sodium Chloride () 1,000 mls @ 75 mls/hr IV .[id number] [facility] Last Infusion: 12/08/19 23:30 Dose: 75 mls/hr Documented by: Meropenem 500 mg/ Sodium (Chloride) 60 mls @ 100 mls/hr IV Q12 MANINDER Last Infusion: 12/08/19 23:30 Dose: Infused Documented by: Sodium Chloride () 250 mls @ 15 mls/hr IV .[id number] PRN PRN Reason: Saline Flush Sodium Chloride () 250 mls @ 15 mls/hr IV .[id number] PRN PRN Reason: Additional IVPB Infusion Melatonin (Melatonin) 3 mg PO QHS PRN PRN PRN Reason: INSOMNIA Ondansetron HCl (Zofran) 4 mg IV Q6H PRN PRN PRN Reason: NAUSEA/VOMITING Sodium Chloride () 10 - 40 ml IV UD PRN PRN Reason: SALINE FLUSH STROKE Vital Signs/Narrative: Vital Signs Pulse Resp BP Pulse Ox 12/09/19 07:00 73 14 104/82 H 99 12/09/19 06:00 75 21 H 102/78 99 Medical Necessity - Tobacco Use Smoking Status: Never smoker Assessment/Plan All Active Problems (Last Reviewed 12/09/19 @ 00:[address] Devon Campbell MD) Ascending cholangitis (Acute) Septic shock (Acute) Acute renal insufficiency (Acute) Pleural effusion, right (Acute) Ascites (Acute) Obstructive jaundice (Acute) Acute cholecystitis (Acute) History of coronary artery stent placement (Resolved 01/18/17) Paroxysmal supraventricular tachycardia (Resolved) Dyspnea (Resolved) Mid back pain (Resolved) 1. acute ascending cholangitis * continue broad spectrum abx (cefepime and metronidazole) * CT ordered * general surgery on consult * NPO 2. Septic shock * / #1 * received IVF in ED * currently HDS * BCx pending 3. SURESH * POA * / dehydration * monitor 4. HFrEF chronic * EF 35% from echo on 01/17/15 * s/p AICD * BP marginal, so will continue to hold on carvedilol * no AMELIA-/ARB given SURESH * no furosemide given SURESH at this time * echo ordered 5. VTE prophylaxis: SCDs Advanced care planning: Spent an additional 15 minutes discussing advanced directives outside of the history and physical. Currently patient is full code. At time the patient that if you are developed the coronavirus that they would essentially do him in. Told him that you know he has defibrillator if he does d evelop some form of cardiac arrest is not addressed by his defibrillator that that would warrant CPR. I told him that if he did need CPR that he would likely not survive given his advanced age and also medical comorbidities. He still continues to wish to be full CODE STATUS at this time. Inpatient E&M: 53152 Subs Hosp L2 Procedures: 17920 Advncd Care Plan 30 Min
--- NOTE | 2019-12-09 09:27 | PCM.CONS.C ---
Problem List (1) Atherosclerotic heart disease of [place] coronary artery without angina pectoris Status: Chronic Qualifiers: [place] vs. 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) Status: Chronic Comment: [employer], (4) Nonischemic cardiomyopathy Status: Chronic (5) Old anterior wall myocardial infarction Status: Chronic (6) Paroxysmal supraventricular tachycardia Status: Resolved Comment: AVNRT ablation of slow pathway 06/2015 (7) Essential (primary) hypertension Status: Chronic (8) Secondary pulmonary arterial hypertension Status: Chronic Reason for Consult Date of Consultation: 12/09/19 Reason for Consultation: Ischemic cardiomyopathy, coronary artery disease, severe pulmonary hypertension, diabetes, hypertension, History of Present Illness: The patient is a 79 year old M, patient Dr. Murphy, with ischemic cardiomyopathy with an ejection fraction advertised and an echocardiogram in January 2019 of 25% superimposed on severe pulmonary pretension with an RVSP of 75 mmHg. Patient has a AICD/[employer], and is status post ablation in 2014. In addition the patient underwent angioplasty and drug-eluting stenting to his proximal LAD in 2016. I reviewed his catheterization films and he had a questionable proximal circumflex stenosis of about 50%, as well as a distal right coronary artery stenosis of approximately 50% as well. No additional stenting was performed. The patient has been chest pain-free since that time and denies any exertional angina, chest pain. He is on chronic O2 therapy at home. His most recent echocardiogram from 01/12/2019 show severe LV dysfunction with an EF of about 20%, severe pulmonary pretension, moderate to severe mitral regurgitation and mild to moderate tricuspid regurgitation. Patient was admitted with abdominal pain, nausea, dry heaves. Abdominal ultrasound discovered mild gallbladder thickening, and gallstones. I was requested by Dr. cifuentes this morning to see the patient with respect to preoperative wrist ratification. Patient is resting comfortably, no acute distress, no abdominal pain, no anginal symptoms. EKG shows normal sinus rhythm with paced ventricular function with PVCs occasionally. The patient did have a 6 beat run of nonsustained ventricular tachycardia. He denies any AICD discharges in the past. [] Past Medical History Allergies/Adverse Reactions: Allergies crestor Adverse Reaction (Severe, Uncoded 12/08/19 18:15) Myalgias Home Medications: Ambulatory Orders Medication Instructions Recorded Lamar-3 Fatty Acids/Fish Oil 2 ea PO BID 10/23/15 [Lamar 3 1,000 mg Softgel] Rivastigmine Tartrate 4.5 mg PO BID 10/23/15 [Rivastigmine] Tamsulosin HCl [Flomax] 0.4 mg PO QHS 10/23/15 cholecalciferol (vitamin D3) 25 2,000 unit PO DAILY cap 09/15/18 mcg (1,000 unit) capsule esomeprazole magnesium 20 mg 20 mg PO DAILY PRN cap 09/15/18 capsule,delayed release levothyroxine 100 mcg tablet 100 mcg PO DAILY 09/15/18 vitamin B complex 1 tab PO DAILY 09/15/18 Acetaminophen [Tylenol Tablet] 650 mg PO Q6H PRN PRN tab 01/10/19 aspirin 81 mg tablet,delayed 81 mg PO DAILY@0800 #90 tab 03/27/19 release atorvastatin 40 mg tablet 40 mg PO QHS #90 tab 08/10/19 furosemide 40 mg tablet 40 mg PO DAILY #0 tab 11/26/19 Carvedilol 6.25 mg PO BID 12/08/19 Ondansetron [Zofran Odt] 4 mg PO Q4H PRN PRN 12/08/19 Past Medical History (Chronic Problems): Chronic Problems (Last Reviewed 12/09/19 @ 00:[address] Devon Campbell MD) Atherosclerotic heart disease of [place] coronary artery without angina pectoris (Chronic) PCI-SNOW-LAD w/ 3.0 x 26 mm Resolute Integrity 01/18/17 Presence of biventricular implantable cardioverter-defibrillator (ICD) (Chronic 02/10/15) [employer], Nonischemic cardiomyopathy (Chronic) Old anterior wall myocardial infarction (Chronic) Non-rheumatic tricuspid valve insufficiency (Chronic) Nonrheumatic mitral (valve) insufficiency (Chronic) Acute on chronic systolic (congestive) heart failure (Chronic) Essential (primary) hypertension (Chronic) Secondary pulmonary arterial hypertension (Chronic) Left bundle branch block (Chronic) Dyslipidemia (Chronic) Bladder cancer (Chronic) Surgical History: appendectomy, herniorrhaphy, - - ICD placement, ablation for SVT Psychiatric History: No pertinent psych hx - *Family History Maternal Family History: Family History (Last Reviewed 12/09/19 @ 00:[address] Devon Campbell MD) Father CVA (cerebral vascular accident) Diabetes Hypertension HLD (hyperlipidemia) Mother CVA (cerebral vascular accident) Hypertension HLD (hyperlipidemia) Brother Diabetes Brother Diabetes Sister Diabetes Hypertension Sister Hypertension Daughter Epilepsy History Items: - - Noncontributory. Paternal Family History: Family History (Last Reviewed 12/09/19 @ 00:[address] Devon Campbell MD) Father CVA (cerebral vascular accident) Diabetes Hypertension HLD (hyperlipidemia) Mother CVA (cerebral vascular accident) Hypertension HLD (hyperlipidemia) Brother Diabetes Brother Diabetes Sister Diabetes Hypertension Sister Hypertension Daughter Epilepsy History Items: No pertinent history Lives: Spouse/ Significant Other Smoking Status: Never smoker Alcohol: None Drugs: None Review of Systems - Review of Systems General: Denies: Fever, Night Sweats, Fatigue Cardiovascular: Denies: Chest Discomfort, Shortness of Breath, Orthopnea, PND, Peripheral Edema, Palpitations, Lightheadedness, Dizziness, Near Syncope, Syncope Respiratory: Denies: Cough, Sputum Production, Hemoptysis Gastrointestinal: Denies: Hematemesis, Hematochezia, Melena Genitourinary: Denies: Dysuria, Hematuria Skin: Denies: Rash Subjectve: Patient resting comfortably, no acute distress. Objective: Vital Signs Temp Pulse Resp BP Pulse Ox 98.4 F 73 14 104/82 H 99 12/09/19 04:00 12/09/19 07:00 12/09/19 07:00 12/09/19 07:00 12/09/19 07:00 Oxygen Flow Rate (L/min) 2 Oxygen Delivery Method Nasal Cannula Weight: 197 lb 8.547 oz Body Mass Index (BMI) 26.7 Finger Stick Blood Glucose 116 Intake and Output for Last 24 Hours 12/07/19 12/08/19 12/09/19 23:59 23:59 23:59 Intake Total 3161.25 / 3386.25 225 / 225 Output Total 400 / 400 Balance 3161.25 / 3386.25 -175 / -175 General: Awake, Alert, Oriented x 3 HEENT: PERRL, EOMI, Sclera Non Icteric Neck: Supple, Good ROM, No Lymph Node Enlargement Lungs: Clear to auscultation Cardiovascular: Regular Rhythm, Normal S2, No Rubs, No Gallops Murmur Murmur: Grade 2/6, Holosystolic Vascular: No Carotid Bruits, Normal Femoral Pulses, Normal Radial Pulses, Normal Dorsalis Pedal Pulse, Normal Posterior Tibial Pulses Abdomen: Bowel Sounds Present, Soft, Non Tender, No HSM, No Organomegaly Extremities: No Cyanosis, No Clubbing, No edema Neurological: No Focal Motor or Sensory Deficit 12/08/19 18:23: WBC 11.8 H, RBC 5.17, Hgb 15.1, Hct 47.5, MCV 91.9, MCH 29.2, MCHC 31.8 L, Plt Count 190, MPV 11.5, Immature Gran % (Auto) 1.000 H, Neut % (Auto) 81.9 H, Lymph % (Auto) 5.4 L, [place] % (Auto) 11.6 H, Eos % (Auto) 0.0, Baso % (Auto) 0.1, Absolute Neuts (auto) 9.6 H, Nucleated RBC % 0.3 12/08/19 18:23: Sodium 132 L, Potassium 5.6 H, Chloride 97 L, Carbon Dioxide 25.0, Anion Gap 10, BUN 58 H, Creatinine 1.75 H, Est GFR (MDRD) Af Amer 48 L, Est GFR (MDRD) Non-Af 40 L, BUN/Creatinine Ratio 33.1 H, Glucose 116 H, Calcium 9.3, Total Bilirubin 2.50 H 12/08/19 18:23: Lactic Acid 4.5 H* 12/08/19 20:15: Urine Color Jojo, Urine Clarity Sl. Cloudy, Urine pH 5.0, Ur Specific [place] 1.020, Urine Protein 30 H, Urine Glucose (UA) Normal, Urine Ketones Negative, Urine Occult Blood Negative, Urine Nitrite Negative, Urine Bilirubin Negative, Urine Urobilinogen 4 H, Ur Leukocyte Esterase Negative, Urine RBC 0 SEEN, Urine WBC 0 SEEN 12/08/19 23:00: Lactic Acid 2.6 H* 04/01/20 04:20: WBC 7.4, RBC 4.73, Hgb 13.3, Hct 43.2, MCV 91.3, MCH 28.1, MCHC 30.8 L, Plt Count 184, MPV 11.4, Immature Gran % (Auto) 0.700, Neut % (Auto) 78.0 H, Lymph % (Auto) 10.9 L, [place] % (Auto) 10.2 H, Eos % (Auto) 0.1, Baso % (Auto) 0.1, Absolute Neuts (auto) 5.8, Nucleated RBC % 0.3 12/09/19 04:20: Sodium 134 L, Potassium 4.7, Chloride 100, Carbon Dioxide 27.0, Anion Gap 7, BUN 54 H, Creatinine 1.41 H, Est GFR (MDRD) Af Amer 62, Est GFR (MDRD) Non-Af 51 L, BUN/Creatinine Ratio 38.3 H, Glucose 138 H, Calcium 8.2 L 12/09/19 04:20: Total Bilirubin 1.50 H, Direct Bilirubin 1.01 H Rhythm: EKG: EKG as above. ECHO: Repeat echo pending. Stress Test: Cardiac Cath: PCI: CT Surgery: Holter monitor: EPS: PPM: CXR: Chest CT Scan: Assessment/Plan 1. Ischemic cardiomyopathy: The patient has severe LV dysfunction superimposed on severe pulmonary hypertension, at least moderate mitral vegetation, but appears to be euvolemic at this time. He is status post AICD/[employer], and has had no AICD discharges. At this point the patient has [place] heart classification 1 with respect to congestive heart failure symptoms. He has had no anginal symptoms despite remaining coronary artery disease in his left circumflex and right coronary artery. He is no longer on Plavix but does remain on aspirin. Given the patient's constellation of cardiac abnormalities, he is at high risk for noncardiac surgery with respect to pulmonary hypertension, difficulty with ventilation, difficulty with weaning from ventilation, and possible perioperative myocardial ischemia. I would not recommend repeat stress testing at this time, but I would recommend repeat echocardiogram to determine if his pulmonary pressures have improved. If the patient has a very large area of ischemia, he may require repeat catheterizations. If his echocardiogram shows that his pulmonary pressures have improved, this would decrease his risk for prolonged perioperative ventilatory management. It is my understanding the patient is going to undergo a CT scan of his abdomen further evaluation and possible HIDA scan. My recommendation would be to treat the patient conservatively but if cholecystectomy is necessary, consideration may want to be made for transferring the patient to a tertiary care center who can better manage his perioperative complications. At this point the patient is deemed at high risk for noncardiac surgery. Would recommend as conservative approach as possible such as a percutaneous gallbladder tubular drainage and antibiotic therapy. Would not recommend repeat catheterization at this time. Would recommend managing the patient's I's and O's in order to maintain proper fluid balance. Should the patient be unable to keep up with his IV fluids during this infectious process, would recommend IV Lasix 40 mg as needed to match his I's and O's. Having a 1500 cc fluid restriction may be difficult to achieve with IV fluid resuscitation during his inflammatory response. 2. Nonsustained ventricular tachycardia: The patient has severe LV dysfunction, and repeat echocardiogram is pending. The patient has had several bursts of nonsustained ventricular tachycardia superimposed on his inflammatory response to his cholecystitis. His LFTs were mildly elevated upon admission but are trending downwards. He is status post AICD therapy. In order to avoid prolonged episodes of nonsustained ventricular tachycardia while the patient recovers I believe it is reasonable to try the patient on IV amiodarone drip with bolus and infusion per protocol. We will give IV bolus over 1 hour's time. 3.Will discuss with Dr. Langley. I discussed the patient's condition and recommendations with Dr. Brown at around 9:30 AM. Thank you very much for the opportunity to participate in the cardiac care of your patient. Consultation time took place between 8 and 10 AM. Inpatient E&M: [id number] In Hosp L3
[2019-12-09 10:02] LABS: Magnesium 2.2 mg/dL (1.6-2.6); Phosphorus 4.5 mg/dL (2.5-4.9)
--- NOTE | 2019-12-09 10:53 | CON.PCM_ITS ---
Problem List (1) Ascending cholangitis Status: Acute (2) Septic shock Status: Acute (3) Acute renal insufficiency Status: Acute (4) Ascites Status: Acute (5) Obstructive jaundice Status: Acute (6) History of coronary artery stent placement Status: Resolved Comment: PCI-SNOW-LAD w/ 3.0 x 26 mm Resolute Integrity 01/18/17 (7) Presence of biventricular implantable cardioverter-defibrillator (ICD) Status: Chronic Comment: [employer], (8) Old anterior wall myocardial infarction Status: Chronic (9) Paroxysmal supraventricular tachycardia Status: Resolved Comment: AVNRT ablation of slow pathway 06/2015 (10) Non-rheumatic tricuspid valve insufficiency Status: Chronic (11) Nonrheumatic mitral (valve) insufficiency Status: Chronic (12) Secondary pulmonary arterial hypertension Status: Chronic (13) Left bundle branch block Status: Chronic (14) Dyslipidemia Status: Chronic Reason for Consult Date of Consultation: 12/09/19 Reason for Consultation: Septic shock History of Present Illness: The patient is a 79 year old M, with past medical history listed below, who presented was [facility] on 12/08/2019 secondary to 6-day history of nausea and vomiting. Patient reportedly initially had a bilious emesis and has been having dry heaves since that time. Patient states he is not been able to keep anything down, including water. Patient is on Lasix and spironolactone at baseline. Patient has a history of advanced CHF with an EF of 10 to 20%. Patient had some lightheadedness with standing on presentation. Patient had denied any diarrhea. Patient has had some decreased urine output, but denies any mariah abdominal pain, back pain or flank pain. On presentation to the ER, there was significant concern for dehydration given diuretics and decreased p.o. intake. Laboratory data showed elevation in creatinine and urinalysis showed proteinuria and hematuria. Patient did receive fluid bolus along with Zofran. Patient was evaluated by Dr. Youssef and patient was initiated on antibiotics and fluids. Patient did have a right pleural effusion noted, along with ascites. Patient was admitted to the intensive care unit for further evaluation. Since being in the intensive care unit, patient has done okay from a hemodynamic standpoint. Patient has not required any pressors or additional fluid boluses. Patient saturation is doing well on room air. After approximately 9 AM, patient started to have repeated bouts of nonsustained V. tach of 10-20 beats. Patient was conscious of this transition. Patient does have an AICD at baseline. Despite nonsustained V. tach, patient continues to report little to no symptoms at this time. Patient is not reporting any abdominal pain, nausea or vomiting. Patient has not had any p.o. challenge. Patient has been evaluated and personally discussed with Dr. Isidro and Dr. Youssef. Review of systems otherwise negative from a constitutional, HEENT, respiratory, cardiovascular, GI, genitourinary, musculoskeletal, skin, neurologic, psychiatric and hematologic system unless stated above. Past Medical History Past Medical History (Chronic Problems): Chronic Problems (Last Reviewed 12/09/19 @ 00:[address] Devon Campbell MD) Atherosclerotic heart disease of [place] coronary artery without angina pectoris (Chronic) PCI-SNOW-LAD w/ 3.0 x 26 mm Resolute Integrity 01/18/17 Presence of biventricular implantable cardioverter-defibrillator (ICD) (Chronic 02/10/15) [employer], Nonischemic cardiomyopathy (Chronic) Old anterior wall myocardial infarction (Chronic) Non-rheumatic tricuspid valve insufficiency (Chronic) Nonrheumatic mitral (valve) insufficiency (Chronic) Acute on chronic systolic (congestive) heart failure (Chronic) Essential (primary) hypertension (Chronic) Secondary pulmonary arterial hypertension (Chronic) Left bundle branch block (Chronic) Dyslipidemia (Chronic) Bladder cancer (Chronic) Medical History: Medical History (Last Reviewed 12/09/19 @ 00:[address] Devon Campbell MD) Atherosclerotic heart disease of [place] coronary artery without angina pectoris (Chronic) I25.10 PCI-SNOW-LAD w/ 3.0 x 26 mm Resolute Integrity 01/18/17 Nonischemic cardiomyopathy (Chronic) I42.8 Old anterior wall myocardial infarction (Chronic) I25.2 Paroxysmal supraventricular tachycardia (Resolved) I47.1 AVNRT ablation of slow pathway 06/2015 Non-rheumatic tricuspid valve insufficiency (Chronic) I36.1 Nonrheumatic mitral (valve) insufficiency (Chronic) I34.0 Acute on chronic systolic (congestive) heart failure (Chronic) I50.23 Essential (primary) hypertension (Chronic) I10 Secondary pulmonary arterial hypertension (Chronic) I27.21 Left bundle branch block (Chronic) I44.7 Dyslipidemia (Chronic) E78.5 Bladder cancer (Chronic) C67.9 Alzheimer's dementia G30.9, F02.80 Carotid bruit R09.89 Hypothyroidism E03.9 NSTEMI (non-ST elevated myocardial infarction) Onset Date: 01/18/17 I21.4 Non-sustained ventricular tachycardia I47.2 Obstructive sleep apnea G47.33 Paroxysmal atrial fibrillation I48.0 Type 2 diabetes mellitus E11.9 Atrial tachycardia (Inactive) I47.1 Ventricular tachycardia (Inactive) I47.2 Allergies crestor Adverse Reaction (Severe, Uncoded 12/08/19 18:15) Myalgias Home Medications: Ambulatory Orders Medication Instructions Recorded Pyrites-3 Fatty Acids/Fish Oil 2 ea PO BID 10/23/15 [Pyrites 3 1,000 mg Softgel] Rivastigmine Tartrate 4.5 mg PO BID 10/23/15 [Rivastigmine] Tamsulosin HCl [Flomax] 0.4 mg PO QHS 10/23/15 cholecalciferol (vitamin D3) 25 2,000 unit PO DAILY cap 09/15/18 mcg (1,000 unit) capsule esomeprazole magnesium 20 mg 20 mg PO DAILY PRN cap 09/15/18 capsule,delayed release levothyroxine 100 mcg tablet 100 mcg PO DAILY 09/15/18 vitamin B complex 1 tab PO DAILY 09/15/18 Acetaminophen [Tylenol Tablet] 650 mg PO Q6H PRN PRN tab 01/10/19 aspirin 81 mg tablet,delayed 81 mg PO DAILY@0800 #90 tab 03/27/19 release atorvastatin 40 mg tablet 40 mg PO QHS #90 tab 08/10/19 furosemide 40 mg tablet 40 mg PO DAILY #0 tab 11/26/19 Carvedilol 6.25 mg PO BID 12/08/19 Ondansetron [Zofran Odt] 4 mg PO Q4H PRN PRN 12/08/19 Surgical History: Surgical History (Last Reviewed 12/09/19 @ 00:[address] Devon Campbell MD) History of coronary artery stent placement (Resolved) Onset Date: 01/18/17 Z95.5 PCI-SNOW-LAD w/ 3.0 x 26 mm Resolute Integrity 01/18/17 Presence of biventricular implantable cardioverter-defibrillator (ICD) (Chronic) Onset Date: 02/10/15 Z95.810 [employer], History of radiofrequency ablation procedure for cardiac arrhythmia Onset Date: 06/2015 Z98.890 AVNRT ablation of slow pathway Surgical History: appendectomy, herniorrhaphy, - - ICD placement, ablation for SVT Psychiatric History: No pertinent psych hx Lives: Spouse/ Significant Other Smoking Status: Never smoker Alcohol: None Drugs: None - *Family History Maternal Family History: Family History (Last Reviewed 12/09/19 @ 00:[address] Devon Campbell MD) Father CVA (cerebral vascular accident) Diabetes Hypertension HLD (hyperlipidemia) Mother CVA (cerebral vascular accident) Hypertension HLD (hyperlipidemia) Brother Diabetes Brother Diabetes Sister Diabetes Hypertension Sister Hypertension Daughter Epilepsy History Items: - - Noncontributory. Paternal Family History: Family History (Last Reviewed 12/09/19 @ 00:[address] Devon Campbell MD) Father CVA (cerebral vascular accident) Diabetes Hypertension HLD (hyperlipidemia) Mother CVA (cerebral vascular accident) Hypertension HLD (hyperlipidemia) Brother Diabetes Brother Diabetes Sister Diabetes Hypertension Sister Hypertension Daughter Epilepsy History Items: No pertinent history Review of Systems Comment: See HPI Patient Problems: Active and Suspected Problems (Last Reviewed 12/09/19 @ 00:[address] Devon Campbell MD) Ascending cholangitis (Acute) Septic shock (Acute) Acute renal insufficiency (Acute) Pleural effusion, right (Acute) Ascites (Acute) Obstructive jaundice (Acute) Acute cholecystitis (Acute) Objective: Echocardiogram shows an EF of 10% with moderately dilated RV and severely dilated left atrium with normal right atrium. Patient's RVSP is estimated at 62 mmHg and there is no collapse of the inferior vena cava with inspiration. Gallbladder ultrasound reported multiple gallstones with mild gallbladder thickening, normal duct and right pleural effusion. - Physical Exam Vitals/I&O's: Vital Signs Temp Pulse Resp BP Pulse Ox 36.9 C 73 14 104/82 H 99 12/09/19 04:00 12/09/19 07:00 12/09/19 07:00 12/09/19 07:00 12/09/19 07:00 Oxygen Flow Rate (L/min) 2 Oxygen Delivery Method Nasal Cannula Weight: 89.6 kg Body Mass Index (BMI) 26.7 Finger Stick Blood Glucose 116 Intake and Output for Last 24 Hours 12/07/19 12/08/19 12/09/19 23:59 23:59 23:59 Intake Total 3161.25 / 3386.25 225 / 225 Output Total 400 / 400 Balance 3161.25 / 3386.25 -175 / -175 General: Alert, Oriented x3, Cooperative, No apparent distress, Well developed, Well nourished, - - No conversational dyspnea. HEENT: Atraumatic, PERRLA, EOMI, Normocephalic, - - No scleral icterus or injection noted Oral: Moist Mucosa, No Gingival or Mucosal Lesions/ Ulcerations Neck: Supple, No JVD, No Nodes, Trachea Midline Lungs: No rhonchi, No wheeze, No rales, Diminished, - - Fair effort. Symmetric expansion. Cardiovascular: Regular rate, Regular Rhythm, Normal S1, Normal S2, No murmurs, No rub noted, No Gallop, - - Intermittent paced rhythm noted on telemetry. Multiple episodes of V. tach also noted. Patient was symptomatic, but not hemodynamically unstable during episodes Abdomen: Bowel Sounds Present, Soft, Passing Flatus, Tender - Slight tenderness at the right upper quadrant Extremities: No clubbing, No cyanosis, No edema, Capillary Refill Less than 3 Seconds Skin: No rashes, No breakdown Musculoskeletal: No Tenderness to Palpation of Joints or Extremities Lymphatic: No Cervical, Supraclavicular, or Inguinal Adenopathy Neurological: Cranial nerves II-XII grossly intact, Neuro grossly intact, Motor Exam 5/5 strength throughout Psych/Mental Status: Alert and oriented to time, place, person, mood and affect Laboratory Results 12/08/19 18:23: WBC 11.8 H, RBC 5.17, Hgb 15.1, Hct 47.5, MCV 91.9, MCH 29.2, MCHC 31.8 L, RDW Std Deviation 53.4 H, RDW Coeff of [place] 17.4 H, Plt Count 190, MPV 11.5, Immature Gran % (Auto) 1.000 H, Neut % (Auto) 81.9 H, Lymph % (Auto) 5.4 L, Cache % (Auto) 11.6 H, Eos % (Auto) 0.0, Baso % (Auto) 0.1, Absolute Neuts (auto) 9.6 H, Absolute Lymphs (auto) 0.64 L, Nucleated RBC % 0.3, Differential Comment SCANNED 12/08/19 18:23: Sodium 132 L, Potassium 5.6 H, Chloride 97 L, Carbon Dioxide 25.0, Anion Gap 10, BUN 58 H, Creatinine 1.75 H, Estim Creat Clear Calc 36.34, Est GFR (MDRD) Af Amer 48 L, Est GFR (MDRD) Non-Af 40 L, BUN/Creatinine Ratio 33.1 H, Glucose 116 H, Calcium 9.3, Total Bilirubin 2.50 H, AST 335 H, ALT 319 H , Alkaline Phosphatase 318 H, Total Protein 7.4, Albumin 3.1 L, Globulin 4.3 H, Albumin/Globulin Ratio 0.7 L 12/08/19 18:23: Lactic Acid 4.5 H* 12/08/19 20:15: Urine Color Jojo, Urine Clarity Sl. Cloudy, Urine pH 5.0, Ur Specific [place] 1.020, Urine Protein 30 H, Urine Glucose (UA) Normal, Urine Ketones Negative, Urine Occult Blood Negative, Urine Nitrite Negative, Urine Bilirubin Negative, Urine Urobilinogen 4 H, Ur Leukocyte Esterase Negative, Urine RBC 0 SEEN, Urine WBC 0 SEEN, Ur Squamous Epith Cells 0 SEEN, Ur Transition Epith Cell 0-5 SEEN, Ur Renal Epithelial Cell 0-5 SEEN, Amorphous Sediment 3+, Urine Bacteria 0 SEEN, Hyaline Casts 25-50 SEEN, Urine Mucus 0 SEEN 12/08/19 23:00: Lactic Acid 2.6 H* 12/09/19 04:20: WBC 7.4, RBC 4.73, Hgb 13.3, Hct 43.2, MCV 91.3, MCH 28.1, MCHC 30.8 L, RDW Std Deviation 52.7 H, RDW Coeff of [place] 15.9 H, Plt Count 184, MPV 11.4, Immature Gran % (Auto) 0.700, Neut % (Auto) 78.0 H, Lymph % (Auto) 10.9 L, Cache % (Auto) 10.2 H, Eos % (Auto) 0.1, Baso % (Auto) 0.1, Absolute Neuts (auto) 5.8, Absolute Lymphs (auto) 0.81 L, Nucleated RBC % 0.3 12/09/19 04:20: Sodium 134 L, Potassium 4.7, Chloride 100, Carbon Dioxide 27.0, Anion Gap 7, BUN 54 H, Creatinine 1.41 H, Estim Creat Clear Calc 45.10, Est GFR (MDRD) Af Amer 62, Est GFR (MDRD) Non-Af 51 L, BUN/Creatinine Ratio 38.3 H, Glucose 138 H, Calcium 8.2 L 12/09/19 04:20: Total Bilirubin 1.50 H, Direct Bilirubin 1.01 H, AST 334 H, ALT 309 H, Alkaline Phosphatase 248 H, Total Protein 6.3 L, Albumin 2.5 L, Globulin 3.8 12/09/19 04:20: Hemoglobin A1c Pending 12/09/19 04:20: Phosphorus 4.5, Magnesium 2.2 Current Medications Dextrose (D50w Syringe) 0 gm IV X1 PRN; Protocol PRN Reason: Hypoglycemia Glucagon () 1 mg IM .X1 PRN PRN Reason: Hypoglycemia Sodium Chloride () 1,000 mls @ 75 mls/hr IV .[id number] REPLACED BY [facility] Last Infusion: 12/08/19 23:30 Dose: 75 mls/hr Documented by: Meropenem 500 mg/ Sodium (Chloride) 60 mls @ 100 mls/hr IV Q12 MANINDER Last Admin: 12/09/19 10:47 Dose: 100 mls/hr Documented by: Sodium Chloride () 250 mls @ 15 mls/hr IV .[id number] PRN PRN Reason: Saline Flush Sodium Chloride () 250 mls @ 15 mls/hr IV .[id number] PRN PRN Reason: Additional IVPB Infusion Amiodarone HCl 150 mg/ (Dextrose) 103 mls @ 103 mls/hr IV BOLUS X1 ONE Stop: 12/09/19 11:19 Last Admin: 12/09/19 10:34 Dose: 103 mls/hr Documented by: Amiodarone HCl 360 mg/ (Dextrose) 200 mls @ 33.333 mls/hr CONT INF .Q6H REPLACED BY [facility] Stop: 12/09/19 17:19 Amiodarone HCl 360 mg/ (Dextrose) 200 mls @ 16.667 mls/hr CONT INF .Q12H REPLACED BY [facility] Stop: 12/10/19 11:19 Melatonin (Melatonin) 3 mg PO QHS PRN PRN PRN Reason: INSOMNIA Ondansetron HCl (Zofran) 4 mg IV Q6H PRN PRN PRN Reason: NAUSEA/VOMITING Sodium Chloride () 10 - 40 ml IV UD PRN PRN Reason: SALINE FLUSH Clinical Impression(s) from Imaging Studies Gallbladder Ultrasound 12/08/19 19:09 IMPRESSION: Multiple gallstones. Mild gallbladder wall thickening. Normal common bile duct. Right pleural effusion. Mild ascites. Electronically Signed: Lex Renee MD at 20:04 EDT Tel , Service support , Assessment/Plan Active and Suspected Problems (Last Reviewed 12/09/19 @ 00:[address] Devon Campbell MD) Ascending cholangitis (Acute) Septic shock (Acute) Acute renal insufficiency (Acute) Pleural effusion, right (Acute) Ascites (Acute) Obstructive jaundice (Acute) Acute cholecystitis (Acute) RECOMMENDATIONS: 1. Continue antibiotics, hold on additional fluid boluses 2. Intervention planned per surgery 3. If lap belkis, would monitor in intensive care unit for 24 hours postoperatively 4. Wean oxygen as tolerated 5. No intervention for ascites and pleural effusion at this time IMPRESSIONS: 1. Severe sepsis secondary to ascending acute cholangitis With elevated lactate of 4.5 on presentation. Patient did receive fluid boluses and antibiotics in the ER. General surgery is currently following. LFTs are relatively stable to slightly improved compared to yesterday. Unclear if patient will be having an ERCP versus lap belkis. Patient does have significant cardiomyopathy and would be at risk for surgical complications. Would recommend ICU monitoring for 24 hours after surgery if indicated. Defer to surgery. 2. Nonsustained V. tach/chronic systolic congestive heart failure Patient has an ejection fraction of approximately 10%. Patient is also having multiple episodes of nonsustained V. tach noted. Electrolytes appear to be appropriate at this time. Cardiology is seeing and I agree with amiodarone at this time. Patient is not having significant tachycardia otherwise. Gentle hydration. Do anticipate patient systolic blood pressures will be on the lower side given this cardiomyopathy. 3. Acute kidney injury Clinical suspicion for prerenal etiology. Patient did appear hypovolemic on presentation. Continue to hydrate slowly. Avoid nephrotoxic's. No indica tion for renal replacement therapy at this time. 4. Hypothyroidism/type 2 diabetes mellitus/ascites/right pleural effusion/advanced age Complicates care, management, recovery and prognosis. Patient currently n.p.o., so sliding scale insulin would be appropriate. Would not recommend intervention for ascites or right pleural effusion at this time as they do not appear to be making any significant clinical impact. This can be addressed as an outpatient. Clinical suspicion for reaction secondary to problem #1 more than separate sources of infection. Inpatient E&M: [id number] Init Hosp L3
--- NOTE | 2019-12-09 11:27 | CASEMGMT ---
RN CM CUTTER FINISHER CM to room to meet with patient for initial transition planning/care coordination assessment. RN CM introduced self and role at [facility]. Pt voices understanding and consents to assessment at this time. Pt resting in bed in no distress at this time. Pt is A/O at this time and answers all questions appropriately. Care providers, pharmacy, and demographics verified/updated at this time. PCP: Dr Moreno Noel Specialists: Dr Chanel--pulmonology, Dr Langley--cardiology Preferred Pharmacy: [facility] Prescription Benefit: Yes Living Will/HPOA: Has both LW and Healthcare POA, who is his , Yarelis Davey. Both are on e-file @ [facility]. LNOK: , Yarelis Living Arrangements: Lives with his , Yarelis, in one-story home w/2 steps to enter. was independent up until he became ill 6 days prior to hospitalization. His is supportive and has been taking care of him at home/sponge-bathing him since he became ill and will be able to assist once he returns home. Transportation: DME: has the following DME: tub bench/shower chair, raised toilet seat, cane, rails/grab bars, walker, BIPAP, O2 @ 2 L/M through [employer]. Has concentrator and portability. [facility] his can bring in portable tank to go home with @ discharge. Pt states no need for further DME at this time. HHC/SNF: Hx of RU @ [facility] in the past. [facility] would like to return home @ discharge w/HHC. Given list of local HHC agencies and 1st preference is [facility] [place]. CM to follow for any increasing home oxygen needs and any further discharge planning/needs. Pt voices no further concerns/needs at this time. Advised pt to ask for CM if any further questions/concerns/needs arise. Voices understanding. PLAN: TBD. If surgery is needed, [facility] need [facility]. If pt is not transferred, discharge plan is home w/HHC: SN and PT/OT. Pt's 1st preference is [facility] [place]. Referral will need to be made. David SHAW RN, CM
[2019-12-09] MEDS: Amiodarone 360 MG in Dextrose 5% Viaflo Bag 192.8 ML 33.3 MG CONT INF (11:30)
[2019-12-09 11:39] LABS: Hemoglobin A1c 7.2 % (4.2-6.3)
[2019-12-09] MEDS: fentaNYL 100 MCG/2 ML Ampul 25 MCG IV ×2 (12:15→17:38)
[2019-12-09] MEDS: 0.9% Saline Lock 10 ML Syringe IV ×4 (12:16→22:52)
[2019-12-09] MEDS: 0.9% Normal Saline 1,000 ML 75 ML IV (12:19)
[2019-12-09] MEDS: Furosemide 20 MG/2 ML VIAL IV (14:14)
--- NOTE | 2019-12-09 15:50 | PCM.PN.BLA ---
Progress Note After the patient's echo I did order a CT scan of his abdomen and pelvis. CT scan was performed. There was no thickening of his gallbladder wall and it was contracted and there were possibly 3 very small stones in the common bile duct. There was no dilation of the bile ducts. The patient also had an echo which showed EF of 10% and severe pulmonary hypertension as well as regurgitation of the mitral valve. The patient has severe cardiomyopathy. At this point I believe and Dr. Isidro confirmed that he would be incredibly high risk for any surgical procedure. At this time he is not having any discomfort or nausea or vomiting. He is becoming more hypoxic and has required more oxygen. His CT does show interstitial fibrosis of the lungs with pleural effusions. At this time I believe he would be too high risk to undergo surgery. I discussed this with him and his . I discussed CODE STATUS with both of them as well. At this time the patient realizes that being full code is aggressive and he would not like to pursue this. His and the patient both agreed on DO NOT RESUSCITATE and DO NOT INTUBATE. I discussed this at great length with the patient and his . I will give the patient clear liquids and continue antibiotics. Dr. Isidro was called to discuss fluid balance. I will discuss further with the big data platform architect and hospitalist. Solomon Youssef MD Pager: [facility] [address] [place] [address], [address] [place] [address] Office: [facility] Vital Signs/Narrative: Vital Signs Temp Pulse Resp BP BP Pulse Ox 12/09/19 15:00 66 29 H 95/67 93 12/09/19 14:00 71 23 H 110/92 H 90 12/09/19 13:00 72 25 H 104/77 93 12/09/19 12:06 75 12/09/19 12:00 97.5 F L 76 23 H 103/72 94
[2019-12-09] MEDS: Furosemide 40 MG/4 ML Vial IV (17:38)
[2019-12-09 17:40] LABS: Absolute Lymphocyte Count 0.69 X10^3/uL (0.83-4.51); Absolute Neutrophil Count 12.9 X10^3/uL (2.0-7.7); Basophil# 0.02 X10^3/uL; Basophil% 0.1 % (0-1); Hematocrit 51.5 % (40-54); Hemoglobin 15.7 g/dL (13.0-16.5); Lymphocyte # 0.69 X10^3/ul (4.0); Lymphocyte % 4.5 % (19-41); Mean Corp Hgb Conc 30.5 g/dL (32-36); Mean Corpuscular Hgb 28.1 pg (27.0-32.0); Mean Corpuscular Volume 92.3 fL (80-94); Mean Platelet Vol. 11.8 fl (6.2-12.0); Monocyte# 1.57 X10^3/uL; Monocyte% 10.3 % (0-10); NRBC Flagged by Analyzer 0.4 % (0-5); Neutrophil # 12.86 X10^3/uL (2.7-7.7); Neutrophil % 84.5 % (47-70); POSITIVE DIFFERENTIAL YES; Platelet Count 193 K/mm3 (150-450); RBC Distribution Width CV 17.2 % (11.6-14.6); Red Blood Count 5.58 M/mm3 (4.6-6.2); White Blood Count 15.2 K/mm3 (4.4-11.0)
[2019-12-09 17:56] LABS: ALB/GLOB Ratio 0.7 RATIO (0.9-2.4); AST(SGOT) 795 U/L (15-37); Alanine Aminotransfer ALT/SGPT 568 U/L (16-61); Albumin, Serum 2.8 g/dL (3.2-5.0); Alkaline Phosphatase 291 U/L (45-117); Anion Gap 16 (5-15); BUN 60 mg/dL (7-18); BUN/Creat Ratio 30.6 RATIO (10-20); Calcium,Total 8.9 mg/dL (8.5-10.1); Chloride 101 mmol/L (98-107); Creatinine, Serum 1.96 mg/dL (0.70-1.30); EST Glomerular Filtration Rate 35 mL/min (>60); Est Glom Filt Rate - Afr Amer 42 mL/min (>60); Estimated Creatinine Clearance 32.44 ml/min; Globulin 4.3 g/dL (2.2-4.2); Glucose 74 mg/dL (74-106); Potassium 5.3 mmol/L (3.5-5.1); Protein, Total 7.1 g/dL (6.4-8.2); Sodium Level 134 mmol/L (136-145)
[2019-12-09 18:05] LABS: Differential Indicated SCAN CRITERIA MET
[2019-12-09] MEDS: Amiodarone 360 MG in Dextrose 5% Viaflo Bag 192.8 ML 16.7 MG CONT INF (18:06)
[2019-12-09 18:32] LABS: Differential Comment SCANNED
[2019-12-09] MEDS: MELATONIN 3 MG TABLET PO (21:10)
[2019-12-09] MEDS: Ondansetron 4 MG/2 ML Vial IV (22:52)
--- NOTE | 2019-12-09 23:53 | CPS ---
This MUSIC DIRECTOR talked to patient about wearing BiPAP tonight. Pt. told me that he does wear BiPAP at home settings 28/07 with a 2L O2 bled in. Also, said that he has a reaction to silicone that the masks are made of. Said that he has a cover for his mask at home. Since are masks are made of this material, pt. decided to remain on 4L NC tonight knowing that BiPAP may be an option if appropriate pulse ox is not achieved with NC. MUSIC DIRECTOR will possibly troubleshoot mask issue if BiPAP is required for nightly usage. Will monitor pt. tonight. RN aware.
[2019-12-10] VITALS (10 sets, daily range): BP systolic 95–122; BP diastolic 45–76; PULSE 62–64; RESP 19–25; TEMP 36.1–36.2; O2SAT 92–99
--- NOTE | 2019-12-10 00:36 | CPS ---
Pt refuses PAP therapy at this time
[2019-12-10] MEDS: fentaNYL 100 MCG/2 ML Ampul 25 MCG IV (04:27)
[2019-12-10] MEDS: Ondansetron 4 MG/2 ML Vial IV (04:27)
[2019-12-10] MEDS: Amiodarone 360 MG in Dextrose 5% Viaflo Bag 192.8 ML 16.7 MG CONT INF (06:14)
[2019-12-10 08:54] LABS: ALB/GLOB Ratio 0.7 RATIO (0.9-2.4); AST(SGOT) 4778 U/L (15-37); Alanine Aminotransfer ALT/SGPT 2234 U/L (16-61); Alkaline Phosphatase 300 U/L (45-117); Anion Gap 18 (5-15); BUN 70 mg/dL (7-18); Calcium,Total 8.8 mg/dL (8.5-10.1); Chloride 98 mmol/L (98-107); EST Glomerular Filtration Rate 26 mL/min (>60); Est Glom Filt Rate - Afr Amer 32 mL/min (>60); Estimated Creatinine Clearance 25.44 ml/min; Globulin 4.2 g/dL (2.2-4.2); Glucose 81 mg/dL (74-106); Potassium 5.7 mmol/L (3.5-5.1); Protein, Total 7.2 g/dL (6.4-8.2); Sodium Level 134 mmol/L (136-145)
[2019-12-10] MEDS: Enoxaparin 40 MG/0.4 ML Syringe SC (10:03)
[2019-12-10] MEDS: Furosemide 40 MG/4 ML Vial IV (10:03)
--- NOTE | 2019-12-10 10:26 | PN_ITS ---
Patient Problems: Active and Suspected Problems (Last Reviewed 12/09/19 @ 00:[address] Devon Campbell MD) Ascending cholangitis (Acute) Septic shock (Acute) Acute renal insufficiency (Acute) Pleural effusion, right (Acute) Ascites (Acute) Obstructive jaundice (Acute) Acute cholecystitis (Acute) Reason for Visit: ascending cholangitis Subjective: Feels well currently. Wishes to go home with hospice. States that insurance that would cover him 01/04 with home care. Vitals/I&O's: Vital Signs Temp Pulse Resp BP Pulse Ox 36.1 C L 63 25 H 98/55 L 92 12/10/19 00:00 12/10/19 08:00 12/10/19 01:00 12/10/19 01:00 12/10/19 01:00 Oxygen Flow Rate (L/min) 2 Oxygen Delivery Method Nasal Cannula Weight: 91.2 kg Body Mass Index (BMI) 26.7 Finger Stick Blood Glucose 116 Intake and Output for Last 24 Hours 12/08/19 12/09/19 12/10/19 23:59 23:59 23:59 Intake Total 3161.25 / 3386.25 33 / 2008. 118.17 / 118.17 Output Total 800 / 800 25 / 25 Balance 3161.25 / 3386.25 1192.33 / 1209.03 93.17 / 93.17 General: Alert, No apparent distress HEENT: Atraumatic, Normocephalic Oral: Moist Mucosa, No Gingival or Mucosal Lesions/ Ulcerations Neck: No Nodes, Trachea Midline Lungs: Clear to auscultation, Normal air movement, No rhonchi, No wheeze, No rales Cardiovascular: Regular rate, Regular Rhythm, Normal S1, Normal S2, No murmurs Abdomen: Bowel Sounds Present, Soft, Non Tender, Non-Distended, No Hepato-splenomegaly Extremities: No edema, No Calf Tenderness Psych/Mental Status: Normal Affect, Appropriate Laboratory Results 12/09/19 04:20: Hemoglobin A1c 7.2 H 12/09/19 17:28: WBC 15.2 H, RBC 5.58, Hgb 15.7, Hct 51.5, MCV 92.3, MCH 28.1, MCHC 30.5 L, RDW Std Deviation 55.0 H, RDW Coeff of [place] 17.2 H, Plt Count 193, MPV 11.8, Immature Gran % (Auto) 0.600, Neut % (Auto) 84.5 H, Lymph % (Auto) 4.5 L, [place] % (Auto) 10.3 H, Eos % (Auto) 0.0, Baso % (Auto) 0.1, Absolute Neuts (auto) 12.9 H, Absolute Lymphs (auto) 0.69 L, Nucleated RBC % 0.4, Differential Comment SCANNED, Diff Path Review May 12/09/19 17:28: Sodium 134 L, Potassium 5.3 H, Chloride 101, Carbon Dioxide 17.0 L, Anion Gap 16 H, BUN 60 H, Creatinine 1.96 H, Estim Creat Clear Calc 32.44, Est GFR (MDRD) Af Amer 42 L, Est GFR (MDRD) Non-Af 35 L, BUN/Creatinine Ratio 30.6 H, Glucose 74, Calcium 8.9, Total Bilirubin 2.80 H, AST 795 H, ALT 568 H, Alkaline Phosphatase 291 H, Total Protein 7.1, Albumin 2.8 L, Globulin 4.3 H, Albumin/Globulin Ratio 0.7 L 12/10/19 05:00: WBC Pending, RBC Pending, Hgb Pending, Hct Pending, MCV Pending, MCH Pending, MCHC Pending, RDW Std Deviation Pending, RDW Coeff of [place] Pending, Plt Count Pending, Neut % (Auto) Pending, Absolute Neuts (auto) Pending 12/10/19 05:00: Sodium 134 L, Potassium 5.7 H, Chloride 98, Carbon Dioxide 18.0 L, Anion Gap 18 H, BUN 70 H, Creatinine 2.50 H, Estim Creat Clear Calc 25.44, Est GFR (MDRD) Af Amer 32 L, Est GFR (MDRD) Non-Af 26 L, BUN/Creatinine Ratio 28.0 H, Glucose 81, Calcium 8.8, Total Bilirubin 3.10 H, AST 4778 H, ALT 2234 H, Alkaline Phosphatase 300 H, Total Protein 7.2, Albumin 3.0 L, Globulin 4.2, Albumin/Globulin Ratio 0.7 L Current Medications Dextrose (D50w Syringe) 0 gm IV X1 PRN; Protocol PRN Reason: Hypoglycemia Enoxaparin Sodium (Lovenox) 40 mg SC DAILY [facility] Last Admin: 12/10/19 10:03 Dose: 40 mg Documented by: Fentanyl Citrate (Sublimaze (100mcg Ampule)) 25 mcg IV Q2H PRN PRN PRN Reason: Agitation/Pain 6-06/18 Last Admin: 12/10/19 04:27 Dose: 25 mcg Documented by: Furosemide (Lasix) 40 mg IV DAILY [facility] Last Admin: 12/10/19 10:03 Dose: 40 mg Documented by: Glucagon () 1 mg IM .X1 PRN PRN Reason: Hypoglycemia Meropenem 500 mg/ Sodium (Chloride) 60 mls @ 100 mls/hr IV Q12 [facility] Last Admin: 12/10/19 10:04 Dose: 100 mls/hr Documented by: Sodium Chloride () 250 mls @ 15 mls/hr IV .[id number] PRN PRN Reason: Saline Flush Sodium Chloride () 250 mls @ 15 mls/hr IV .[id number] PRN PRN Reason: Additional IVPB Infusion Amiodarone HCl 360 mg/ (Dextrose) 200 mls @ 16.667 mls/hr CONT INF .Q12H [facility] Stop: 12/10/19 11:19 Last Admin: 12/10/19 06:14 Dose: 0.5 mg/min, 16.7 mls/hr Documented by: Melatonin (Melatonin) 3 mg PO QHS PRN PRN PRN Reason: INSOMNIA Last Admin: 12/09/19 21:10 Dose: 3 mg Documented by: Ondansetron HCl (Zofran) 4 mg IV Q6H PRN PRN PRN Reason: NAUSEA/VOMITING Last Admin: 12/10/19 04:27 Dose: 4 mg Documented by: Sodium Chloride () 10 - 40 ml IV UD PRN PRN Reason: SALINE FLUSH Last Admin: 12/09/19 22:52 Dose: 10 ml Documented by: STROKE Vital Signs/Narrative: Vital Signs Pulse 12/10/19 08:00 63 Medical Necessity - Tobacco Use Smoking Status: Never smoker Assessment/Plan All Active Problems (Last Reviewed 12/09/19 @ 00:[address] Devon Campbell MD) Ascending cholangitis (Acute) Septic shock (Acute) Acute renal insufficiency (Acute) Pleural effusion, right (Acute) Ascites (Acute) Obstructive jaundice (Acute) Acute cholecystitis (Acute) History of coronary artery stent placement (Resolved 01/18/17) Paroxysmal supraventricular tachycardia (Resolved) Dyspnea (Resolved) Mid back pain (Resolved) 1. acute ascending cholangitis * worse, AST and ALT now 2448 and 2234 respectively. * continue broad spectrum abx (cefepime and metronidazole) * CT ordered * general surgery on consult 2. Septic shock * 2/ #1 * received IVF in ED * currently HDS * BCx pending 3. SURESH * POA * 2/ dehydration * monitor 4. HFrEF chronic * EF 35% from echo on 01/17/15 * s/p AICD * BP marginal, so will continue to hold on carvedilol * no AMELIA-/ARB given SURESH * no furosemide given SURESH at this time * echo ordered 5. VTE prophylaxis: SCDs Advanced care planning spent an additional 20 minutes discussing outside of the history and physical.: Patient is now on board with proceeding with hospice. He states that he would like to do hospice at home and that through his private insurance as 01/04 home care available. Hospice will be evaluate him and case management will need to look into see if the home health care is feasible to what he needs. We will see if it may be something where we need to have him go to the hospice care unit before transitioning over to home. For symptom control, I do not feel that he would necessarily need to be at the hospice care center if it could be done at home. Hydration would be low yield given the current circumstances that will feel that that would necessitate him going to hospice care center versus going home with hospice. The only issue about him going home is just make sure that he has necessary equipment and that his and home care would be able to manage him at home. Inpatient E&M: 80352 Subs Hosp L2 Procedures: 10753 Advncd Care Plan 30 Min
--- NOTE | 2019-12-10 10:36 | PN.SURG_ITS ---
Patient Problems: Active and Suspected Problems (Last Reviewed 12/09/19 @ 00:[address] Devon Campbell MD) Ascending cholangitis (Acute) Septic shock (Acute) Acute renal insufficiency (Acute) Pleural effusion, right (Acute) Ascites (Acute) Obstructive jaundice (Acute) Acute cholecystitis (Acute) Subjective: Patient did have a small amount of vomiting overnight. He describes no pain this morning. - Physical Exam Vitals/I&O's: Vital Signs Temp Pulse Resp BP Pulse Ox 97.0 F L 63 25 H 98/55 L 92 12/10/19 00:00 12/10/19 08:00 12/10/19 01:00 12/10/19 01:00 12/10/19 01:00 Oxygen Flow Rate (L/min) 2 Oxygen Delivery Method Nasal Cannula Weight: 201 lb 0.985 oz Body Mass Index (BMI) 26.7 Finger Stick Blood Glucose 116 Intake and Output for Last 24 Hours 12/08/19 12/09/19 12/10/19 23:59 23:59 23:59 Intake Total 3161.25 / 3386.25 1991.33 / 2008. 118.17 / 118.17 Output Total 800 / 800 Balance 3161.25 / 3386.25 1192.33 / 1209.03 93.17 / 93.17 General: Alert, Oriented x3 Cardiovascular: Regular rate, Regular Rhythm Abdomen: Soft, Non Tender, Non-Distended Laboratory Results 12/09/19 04:20: Hemoglobin A1c 7.2 H 12/09/19 17:28: WBC 15.2 H, RBC 5.58, Hgb 15.7, Hct 51.5, MCV 92.3, MCH 28.1, MCHC 30.5 L, RDW Std Deviation 55.0 H, RDW Coeff of [place] 17.2 H, Plt Count 193, MPV 11.8, Immature Gran % (Auto) 0.600, Neut % (Auto) 84.5 H, Lymph % (Auto) 4.5 L, [place] % (Auto) 10.3 H, Eos % (Auto) 0.0, Baso % (Auto) 0.1, Absolute Neuts (auto) 12.9 H, Absolute Lymphs (auto) 0.69 L, Nucleated RBC % 0.4, Differential Comment SCANNED, Diff Path Review January20 17:28: Sodium 134 L, Potassium 5.3 H, Chloride 101, Carbon Dioxide 17.0 L, Anion Gap 16 H, BUN 60 H, Creatinine 1.96 H, Estim Creat Clear Calc 32.44, Est GFR (MDRD) Af Amer 42 L, Est GFR (MDRD) Non-Af 35 L, BUN/Creatinine Ratio 30.6 H, Glucose 74, Calcium 8.9, Total Bilirubin 2.80 H, AST 795 H, ALT 568 H, Alkaline Phosphatase 291 H, Total Protein 7.1, Albumin 2.8 L, Globulin 4.3 H, Albumin/Globulin Ratio 0.7 L 12/10/19 05:00: WBC Pending, RBC Pending, Hgb Pending, Hct Pending, MCV Pending, MCH Pending, MCHC Pending, RDW Std Deviation Pending, RDW Coeff of [place] Pending, Plt Count Pending, Neut % (Auto) Pending, Absolute Neuts (auto) Pending 12/10/19 05:00: Sodium 134 L, Potassium 5.7 H, Chloride 98, Carbon Dioxide 18.0 L, Anion Gap 18 H, BUN 70 H, Creatinine 2.50 H, Estim Creat Clear Calc 25.44, Est GFR (MDRD) Af Amer 32 L, Est GFR (MDRD) Non-Af 26 L, BUN/Creatinine Ratio 28.0 H, Glucose 81, Calcium 8.8, Total Bilirubin 3.10 H, AST 4778 H, ALT 2234 H, Alkaline Phosphatase 300 H, Total Protein 7.2, Albumin 3.0 L, Globulin 4.2, Albumin/Globulin Ratio 0.7 L Current Medications Dextrose (D50w Syringe) 0 gm IV X1 PRN; Protocol PRN Reason: Hypoglycemia Enoxaparin Sodium (Lovenox) 40 mg SC DAILY [facility] Last Admin: 12/10/19 10:03 Dose: 40 mg Documented by: Fentanyl Citrate (Sublimaze (100mcg Ampule)) 25 mcg IV Q2H PRN PRN PRN Reason: Agitation/Pain 6-06/18 Last Admin: 12/10/19 04:27 Dose: 25 mcg Documented by: Glucagon () 1 mg IM .X1 PRN PRN Reason: Hypoglycemia Meropenem 500 mg/ Sodium (Chloride) 60 mls @ 100 mls/hr IV Q12 [facility] Last Admin: 12/10/19 10:04 Dose: 100 mls/hr Documented by: Sodium Chloride () 250 mls @ 15 mls/hr IV .[id number] PRN PRN Reason: Saline Flush Sodium Chloride () 250 mls @ 15 mls/hr IV .[id number] PRN PRN Reason: Additional IVPB Infusion Dextrose/Sodium Chloride () 1,000 mls @ 75 mls/hr IV .[id number] [facility] Melatonin (Melatonin) 3 mg PO QHS PRN PRN PRN Reason: INSOMNIA Last Admin: 12/09/19 21:10 Dose: 3 mg Documented by: Ondansetron HCl (Zofran) 4 mg IV Q6H PRN PRN PRN Reason: NAUSEA/VOMITING Last Admin: 12/10/19 04:27 Dose: 4 mg Documented by: Sodium Chloride () 10 - 40 ml IV UD PRN PRN Reason: SALINE FLUSH Last Admin: 12/09/19 22:52 Dose: 10 ml Documented by: Medical Necessity - Tobacco Use Smoking Status: Never smoker Assessment/Plan All Active Problems (Last Reviewed 12/09/19 @ 00:[address] Devon Campbell MD) Ascending cholangitis (Acute) Septic shock (Acute) Acute renal insufficiency (Acute) Pleural effusion, right (Acute) Ascites (Acute) Obstructive jaundice (Acute) Acute cholecystitis (Acute) History of coronary artery stent placement (Resolved 01/18/17) Paroxysmal supraventricular tachycardia (Resolved) Dyspnea (Resolved) Mid back pain (Resolved) 79-year-old male with obstructive jaundice and choledocholithiasis 1. The patient did not go to surgery yesterday due to his heart condition. Echo showed a very low ejection fraction with severe pulmonary hypertension. The patient was started on a clear liquid diet overnight and changed to DNR CCA. Overnight the patient did have a small episode of vomiting. He is not having any abdominal pain or fevers or chills. I do not believe that his drastic jump in liver enzymes this morning is due to obstruction. I performed a CT scan yesterday which did show 2 small stones in the common bile duct but there is no biliary dilation or distention of his gallbladder. The liver enzymes today are drastically higher than I would expect due to obstruction. The patient may be having shock liver or issues due to his amiodarone. I discussed with Dr. Isidro and he recommended stopping the amiodarone. 2. I had a long discussion this morning with the patient's and the patient. I explained that there is no further invasive treatment at this time that I would be able to perform on him due to his heart. I asked him to consider hospice and I discussed palliative care with his as well. The patient is agreeable and understands and he would like to go home if possible. I will have the care management discussed with him his options. At this time I do not believe that he is having cholangitis causing sepsis but I believe that some element of his condition is due to his heart failure. No surgical intervention planned at this time. Solomon Youssef MD Pager: [facility] [address] [place] [address] [address] [place] [address] Office:
[2019-12-10] MEDS: Dext 5%-0.45% NS 1,000 ML 75 ML IV (10:55)
--- NOTE | 2019-12-10 10:58 | CASEMGMT ---
Addendum entered by Jie Kiser 12/10/19 11:08: SW met with pt in room and discussed news pt received from physicians. Support provided and pt accepting of referral for hospice. Pt made aware that referral has been made and has been notified and that someone from [facility] will visit him today. Pt expressing appreciation for visit. YEHUDA Chávez Original Note: Social Work SW attended pt interdisciplinary rounds. Per physician, surgeon will be talking to pt about hospice today as pt is not a surgical candidate. Ivelisse STEWART, later notified SW that pt met with surgeon and is agreeable to hospice referral and Ivelisse did speak with pt over the phone and she is also agreeable. Referral made to Terence at [facility] and clinical information faxed. Terence will call pt and will come to [facility] to visit with patient. Plan: Hospice referral made, TBD if pt returns home with hospice or goes to Inpatient Unit YEHUDA Chávez
--- NOTE | 2019-12-10 11:18 | CASEMGMT ---
SW Return call from Terence at [facility] and they will be here at noon to meet with pt and will conference call pt in on visit. PAT [place] and pt made aware. YEHUDA Chávez
[2019-12-10 11:50] LABS: Absolute Lymphocyte Count 0.56 X10^3/uL (0.83-4.51); Absolute Neutrophil Count 16.4 X10^3/uL (2.0-7.7); Basophil# 0.04 X10^3/uL; Basophil% 0.2 % (0-1); Eosinophil# 0.12 X10^3/uL; Eosinophils% 0.6 % (0-5); Hematocrit 49.4 % (40-54); Hemoglobin 15.2 g/dL (13.0-16.5); Lymphocyte # 0.56 X10^3/ul (4.0); Mean Corp Hgb Conc 30.8 g/dL (32-36); Mean Corpuscular Hgb 28.4 pg (27.0-32.0); Mean Corpuscular Volume 92.3 fL (80-94); Mean Platelet Vol. 11.6 fl (6.2-12.0); Monocyte# 1.29 X10^3/uL; NRBC Flagged by Analyzer 0.2 % (0-5); Neutrophil # 16.38 X10^3/uL (2.7-7.7); Neutrophil % 88.4 % (47-70); POSITIVE DIFFERENTIAL YES; Platelet Count 175 K/mm3 (150-450); RBC Distribution Width CV 16.4 % (11.6-14.6); Red Blood Count 5.35 M/mm3 (4.6-6.2); White Blood Count 18.5 K/mm3 (4.4-11.0)
[2019-12-10 12:00] LABS: Differential Indicated SCAN CRITERIA MET
[2019-12-10 12:01] LABS: Differential Comment SCANNED
--- NOTE | 2019-12-10 13:07 | PN_ITS ---
Subjective: Late entry: Patient did okay overnight. Patient did have increased FiO2 demands yesterday and received multiple doses of Lasix. Patient believes his respiratory status is improved, but did have some nausea and vomiting overnight. General: Alert, Oriented x3, Cooperative, No apparent distress, Well developed, Well nourished, - - No conversational dyspnea. HEENT: Atraumatic, PERRLA, EOMI, Normocephalic, - - No scleral icterus or injection noted Oral: Moist Mucosa, No Gingival or Mucosal Lesions/ Ulcerations Neck: Supple, No Nodes, Trachea Midline, JVD, Right Lungs: No rhonchi, No wheeze, No rales, Diminished, - - Mild splinting with deep inhalation Cardiovascular: Normal S1, Normal S2, No murmurs, Irregular Rate, No rub noted, No Gallop, - - No sustained V. tach noted on telemetry Abdomen: Bowel Sounds Present, Soft, Distended - Slightly, Tender - Some right upper quadrant tenderness, but no guarding or rebound Extremities: No clubbing, No cyanosis, Edema - Trace Skin: - - No change compared to previous Musculoskeletal: No Tenderness to Palpation of Joints or Extremities Lymphatic: No Cervical, Supraclavicular, or Inguinal Adenopathy Neurological: Cranial nerves II-XII grossly intact, Neuro grossly intact, Motor Exam 5/5 strength throughout Psych/Mental Status: Alert and oriented to time, place, person, mood and affect Vital Signs Temp Pulse Resp BP Pulse Ox 36.1 C L 64 19 H 120/47 L 96 12/10/19 00:00 12/10/19 11:00 12/10/19 11:00 12/10/19 11:00 12/10/19 11:00 Oxygen Flow Rate (L/min) 2 Oxygen Delivery Method Nasal Cannula Weight: 91.2 kg Body Mass Index (BMI) 26.7 Finger Stick Blood Glucose 116 Intake and Output for Last 24 Hours 12/08/19 12/09/19 12/10/19 23:59 23:59 23:59 Intake Total 3161.25 / 3386.25 / 256.10 / 256.10 Output Total 800 / 800 Balance 3161.25 / 3386.25 1192.33 / 1209.03 231.10 / 231.10 Labs (Last 48 Hours) 12/08/19 12/08/19 12/08/19 18:23 18:23 18:23 WBC 11.8 H RBC 5.17 Hgb 15.1 Hct 47.5 MCV 91.9 MCH 29.2 MCHC 31.8 L RDW Std Deviation 53.4 H RDW Coeff of [place] 17.4 H Plt Count 190 MPV 11.5 Immature Gran % (Auto) 1.000 H Neut % (Auto) 81.9 H Lymph % (Auto) 5.4 L [place] % (Auto) 11.6 H Eos % (Auto) 0.0 Baso % (Auto) 0.1 Absolute Neuts (auto) 9.6 H Absolute Lymphs (auto) 0.64 L Nucleated RBC % 0.3 Differential Comment SCANNED Diff Path Review Sodium 132 L Potassium 5.6 H Chloride 97 L Carbon Dioxide 25.0 Anion Gap 10 BUN 58 H Creatinine 1.75 H Estim Creat Clear Calc 36.34 Est GFR (MDRD) Af Amer 48 L Est GFR (MDRD) Non-Af 40 L BUN/Creatinine Ratio 33.1 H Glucose 116 H Hemoglobin A1c Lactic Acid 4.5 H* Calcium 9.3 Phosphorus Magnesium Total Bilirubin 2.50 H Direct Bilirubin AST 335 H ALT 319 H Alkaline Phosphatase 318 H Total Protein 7.4 Albumin 3.1 L Globulin 4.3 H Albumin/Globulin Ratio 0.7 L Urine Color Urine Clarity Urine pH Ur Specific [place] Urine Protein Urine Glucose (UA) Urine Ketones Urine Occult Blood Urine Nitrite Urine Bilirubin Urine Urobilinogen Ur Leukocyte Esterase Urine RBC Urine WBC Ur Squamous Epith Cells Ur Transition Epith Cell Ur Renal Epithelial Cell Amorphous Sediment Urine Bacteria Hyaline Casts Urine Mucus 12/08/19 12/08/19 12/09/19 20:15 23:00 04:20 WBC 7.4 RBC 4.73 Hgb 13.3 Hct 43.2 MCV 91.3 MCH 28.1 MCHC 30.8 L RDW Std Deviation 52.7 H RDW Coeff of [place] 15.9 H Plt Count 184 MPV 11.4 Immature Gran % (Auto) 0.700 Neut % (Auto) 78.0 H Lymph % (Auto) 10.9 L [place] % (Auto) 10.2 H Eos % (Auto) 0.1 Baso % (Auto) 0.1 Absolute Neuts (auto) 5.8 Absolute Lymphs (auto) 0.81 L Nucleated RBC % 0.3 Differential Comment Diff Path Review Sodium Potassium Chloride Carbon Dioxide Anion Gap BUN Creatinine Estim Creat Clear Calc Est GFR (MDRD) Af Amer Est GFR (MDRD) Non-Af BUN/Creatinine Ratio Glucose Hemoglobin A1c Lactic Acid 2.6 H* Calcium Phosphorus Magnesium Total Bilirubin Direct Bilirubin AST ALT Alkaline Phosphatase Total Protein Albumin Globulin Albumin/Globulin Ratio Urine Color Jojo Urine Clarity Sl. Cloudy Urine pH 5.0 Ur Specific [place] 1.020 Urine Protein 30 H Urine Glucose (UA) Normal Urine Ketones Negative Urine Occult Blood Negative Urine Nitrite Negative Urine Bilirubin Negative Urine Urobilinogen 4 H Ur Leukocyte Esterase Negative Urine RBC 0 SEEN Urine WBC 0 SEEN Ur Squamous Epith Cells 0 SEEN Ur Transition Epith Cell 0-5 SEEN Ur Renal Epithelial Cell 0-5 SEEN Amorphous Sediment 3+ Urine Bacteria 0 SEEN Hyaline Casts 25-50 SEEN Urine Mucus 0 SEEN 12/09/19 12/09/19 12/09/19 04:20 04:20 04:20 WBC RBC Hgb Hct MCV MCH MCHC RDW Std Deviation RDW Coeff of [place] Plt Count MPV Immature Gran % (Auto) Neut % (Auto) Lymph % (Auto) [place] % (Auto) Eos % (Auto) Baso % (Auto) Absolute Neuts (auto) Absolute Lymphs (auto) Nucleated RBC % Differential Comment Diff Path Review Sodium 134 L Potassium 4.7 Chloride 100 Carbon Dioxide 27.0 Anion Gap 7 BUN 54 H Creatinine 1.41 H Estim Creat Clear Calc 45.10 Est GFR (MDRD) Af Amer 62 Est GFR (MDRD) Non-Af 51 L BUN/Creatinine Ratio 38.3 H Glucose 138 H Hemoglobin A1c 7.2 H Lactic Acid Calcium 8.2 L Phosphorus Magnesium Total Bilirubin 1.50 H Direct Bilirubin 1.01 H AST 334 H ALT 309 H Alkaline Phosphatase 248 H Total Protein 6.3 L Albumin 2.5 L Globulin 3.8 Albumin/Globulin Ratio Urine Color Urine Clarity Urine pH Ur Specific [place] Urine Protein Urine Glucose (UA) Urine Ketones Urine Occult Blood Urine Nitrite Urine Bilirubin Urine Urobilinogen Ur Leukocyte Esterase Urine RBC Urine WBC Ur Squamous Epith Cells Ur Transition Epith Cell Ur Renal Epithelial Cell Amorphous Sediment Urine Bacteria Hyaline Casts Urine Mucus 12/09/19 12/09/19 12/09/19 04:20 17:28 17:28 WBC 15.2 H RBC 5.58 Hgb 15.7 Hct 51.5 MCV 92.3 MCH 28.1 MCHC 30.5 L RDW Std Deviation 55.0 H RDW Coeff of [place] 17.2 H Plt Count 193 MPV 11.8 Immature Gran % (Auto) 0.600 Neut % (Auto) 84.5 H Lymph % (Auto) 4.5 L [place] % (Auto) 10.3 H Eos % (Auto) 0.0 Baso % (Auto) 0.1 Absolute Neuts (auto) 12.9 H Absolute Lymphs (auto) 0.69 L Nucleated RBC % 0.4 Differential Comment SCANNED Diff Path Review May foll Sodium 134 L Potassium 5.3 H Chloride 101 Carbon Dioxide 17.0 L Anion Gap 16 H BUN 60 H Creatinine 1.96 H Estim Creat Clear Calc 32.44 Est GFR (MDRD) Af Amer 42 L Est GFR (MDRD) Non-Af 35 L BUN/Creatinine Ratio 30.6 H Glucose 74 Hemoglobin A1c Lactic Acid Calcium 8.9 Phosphorus 4.5 Magnesium 2.2 Total Bilirubin 2.80 H Direct Bilirubin AST 795 H ALT 568 H Alkaline Phosphatase 291 H Total Protein 7.1 Albumin 2.8 L Globulin 4.3 H Albumin/Globulin Ratio 0.7 L Urine Color Urine Clarity Urine pH Ur Specific [place] Urine Protein Urine Glucose (UA) Urine Ketones Urine Occult Blood Urine Nitrite Urine Bilirubin Urine Urobilinogen Ur Leukocyte Esterase Urine RBC Urine WBC Ur Squamous Epith Cells Ur Transition Epith Cell Ur Renal Epithelial Cell Amorphous Sediment Urine Bacteria Hyaline Casts Urine Mucus 12/10/19 12/10/19 05:00 05:00 WBC 18.5 H RBC 5.35 Hgb 15.2 Hct 49.4 MCV 92.3 MCH 28.4 MCHC 30.8 L RDW Std Deviation 55.0 H RDW Coeff of [place] 16.4 H Plt Count 175 MPV 11.6 Immature Gran % (Auto) 0.800 Neut % (Auto) 88.4 H Lymph % (Auto) 3.0 L [place] % (Auto) 7.0 Eos % (Auto) 0.6 Baso % (Auto) 0.2 Absolute Neuts (auto) 16.4 H Absolute Lymphs (auto) 0.56 L Nucleated RBC % 0.2 Differential Comment SCANNED Diff Path Review Sodium 134 L Potassium 5.7 H Chloride 98 Carbon Dioxide 18.0 L Anion Gap 18 H BUN 70 H Creatinine 2.50 H Estim Creat Clear Calc 25.44 Est GFR (MDRD) Af Amer 32 L Est GFR (MDRD) Non-Af 26 L BUN/Creatinine Ratio 28.0 H Glucose 81 Hemoglobin A1c Lactic Acid Calcium 8.8 Phosphorus Magnesium Total Bilirubin 3.10 H Direct Bilirubin AST 4778 H ALT 2234 H Alkaline Phosphatase 300 H Total Protein 7.2 Albumin 3.0 L Globulin 4.2 Albumin/Globulin Ratio 0.7 L Urine Color Urine Clarity Urine pH Ur Specific [place] Urine Protein Urine Glucose (UA) Urine Ketones Urine Occult Blood Urine Nitrite Urine Bilirubin Urine Urobilinogen Ur Leukocyte Esterase Urine RBC Urine WBC Ur Squamous Epith Cells Ur Transition Epith Cell Ur Renal Epithelial Cell Amorphous Sediment Urine Bacteria Hyaline Casts Urine Mucus Clinical Impression(s) from Imaging Studies Abdomen/Pelvis CT 12/09/19 08:11 IMPRESSION: Contracted gallbladder containing small gallstones in the neck of the gallbladder. 3 small stones seen in the common bile duct the largest measuring 5.4 mm. Marked degree of atherosclerosis of the aorta and major visceral branches. Ascites. Diffuse fatty infiltration of the liver. Electronically Signed: Calin Barton, at 15:16 EDT , Service support , Medical Necessity - Tobacco Use Smoking Status: Never smoker Assessment/Plan All Active Problems (Last Reviewed 12/09/19 @ 00:[address] Devon Campbell MD) Ascending cholangitis (Acute) Septic shock (Acute) Acute renal insufficiency (Acute) Pleural effusion, right (Acute) Ascites (Acute) Obstructive jaundice (Acute) Acute cholecystitis (Acute) History of coronary artery stent placement (Resolved 01/18/17) Paroxysmal supraventricular tachycardia (Resolved) Dyspnea (Resolved) Mid back pain (Resolved) RECOMMENDATIONS: 1. Continue antibiotics, gentle rehydration 2. Agree with surgery that intervention would be high risk 3. Likely discontinue IV fluids upon transfer 4. Wean oxygen as tolerated 5. Patient considering hospice measures IMPRESSIONS: 1. Severe sepsis secondary to ascending acute cholangitis With elevated lactate of 4.5 on presentation. Patient did receive fluid boluses and antibiotics in the ER. General surgery is currently following. LFTs have had a significant jump over the last 24 hours. It is unclear if this is secondary to insult from a larger stone, but does not have significant biliary dilatation to allow for a Gayle tube. Patient has severe cardiomyopathy that would increase risk for poor outcome if taken to surgery. 2. Nonsustained V. tach/chronic systolic congestive heart failure Patient has an ejection fraction of approximately 10%. Patient was having multiple episodes of nonsustained V. tach, but this appears to have responded to amiodarone. Electrolytes appear to be appropriate at this time. Cardiology is seeing and I agree with amiodarone at this time. Patient is not having significant tachycardia otherwise. Gentle hydration. Do anticipate patient systolic blood pressures will be on the lower side given this cardiomyopathy. 3. Acute kidney injury Clinical suspicion for prerenal etiology. Patient did receive significant diuretic therapy yesterday. Continue to hydrate slowly. Avoid nephrotoxic's. No indication for renal replacement therapy at this time. 4. Hypothyroidism/type 2 diabetes mellitus/ascites/right pleural effusion/advanced age Complicates care, management, recovery and prognosis. Patient currently n.p.o., so sliding scale insulin would be appropriate. Would not recommend intervention for ascites or right pleural effusion at this time as they do not appear to be making any significant clinical impact. Patient is reportedly considering inpatient hospice given risks associated with intervention for gallbladder. Patient does appear to be comfortable at this time. We will continue with fentanyl for now. Inpatient E&M: [id number] [facility] L3
--- NOTE | 2019-12-10 14:10 | CASEMGMT ---
Social Work SW spoke with Terence from [facility] who has met with pt and spoke with . Pt to be transferred to the [facility] inpatient unit today at 3pm. Ivelisse STEWART notified. YEHUDA Chávez
--- NOTE | 2019-12-10 14:17 | DCINST_ITS ---
- Discharge Diagnoses Current Active Problems: Current Active and Chronic Problems (Last Reviewed 12/09/19 @ 00:[address] Devon Campbell MD) Ascending cholangitis (Acute) Septic shock (Acute) Acute renal insufficiency (Acute) Pleural effusion, right (Acute) Ascites (Acute) Obstructive jaundice (Acute) Acute cholecystitis (Acute) You will use the following diet at home:: No restrictions Your food should be the consistency of: Regular Allergies/Adverse Reactions: Allergies crestor Adverse Reaction (Severe, Uncoded 12/08/19 18:15) Myalgias Medications to take at Discharge [place]-3 Fatty Acids/Fish Oil [[place] 3 1,000 mg Softgel] 2 ea PO BID 10/23/15 Rivastigmine Tartrate [Rivastigmine] 4.5 mg PO BID 10/23/15 Tamsulosin HCl [Flomax] 0.4 mg PO QHS 10/23/15 esomeprazole magnesium 20 mg capsule,delayed release 20 mg PO DAILY PRN cap 09/15/18 levothyroxine 100 mcg tablet 100 mcg PO DAILY 09/15/18 Acetaminophen [Tylenol Tablet] 650 mg PO Q6H PRN PRN tab 01/10/19 atorvastatin 40 mg tablet 40 mg PO QHS #90 tab 08/10/19 Carvedilol 6.25 mg PO BID 12/08/19 Ondansetron [Zofran Odt] 4 mg PO Q4H PRN PRN 12/08/19 Test Results: Test results from this visit will be discussed in further detail at your follow- up appointment, if applicable. Proposed Discharge Date: 12/10/19
--- NOTE | 2019-12-10 14:18 | PCM.DC.SUM ---
Discharge Date and Diagnosis - Problem List Patient Problems: Active and Suspected Problems (Last Reviewed 12/09/19 @ 00:[address] Devon Campbell MD) Ascending cholangitis (Acute) Septic shock (Acute) Acute renal insufficiency (Acute) Pleural effusion, right (Acute) Ascites (Acute) Obstructive jaundice (Acute) Acute cholecystitis (Acute) Date of Admission: 12/08/19 Date of Discharge: 12/10/19 - Primary Discharge Diagnosis Active and Suspected Problems (Last Reviewed 12/09/19 @ 00:[address] Devon Campbell MD) Ascending cholangitis (Acute) Septic shock (Acute) Acute renal insufficiency (Acute) Pleural effusion, right (Acute) Ascites (Acute) Obstructive jaundice (Acute) Acute cholecystitis (Acute) - Secondary Discharge Diagnosis Chronic Problems (Last Reviewed 12/09/19 @ 00:[address] 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 3 small stones seen in the common bile duct the largest measuring 5.4 mm. Marked degree of atherosclerosis of the aorta and major visceral branches. Ascites. Diffuse fatty infiltration of the liver. Electronically Signed: Calin Barton, at 15:16 EDT , Service support , Domonique, General Surgery Isidro, Cardiology [place], Pulmonology. Operations: None Procedures: None Summary of Care Provided: The patient is a 79 year old M Dixon with nausea and vomiting. Patient was found to be in septic shock with lactic acid 1.5. Septic shock was due to what appeared to be ascending cholangitis. Patient was started on broad-spectrum antibiotics,, general surgery, pulmonology and cardiology were consulted. Patient's liver function tests steadily increased and today his AST was 4778 and ALT was 2237. Patient had an echocardiogram that showed an EF of 10%. Patient was not a candidate for surgery given the high cardiac risk. Today, the patient decided on hospice and hospice was consulted. Hospice evaluated patient [facility]. Patient's overall prognosis is poor with life expectancy of days to weeks. 1. acute ascending cholangitis worse, AST and ALT now 2448 and 2234 respectively. continue broad spectrum abx (cefepime and metronidazole) 2. Septic shock 2/2 #1 received IVF in ED currently HDS BCx pending 3. SURESH POA 2/2 dehydration monitor 4. HFrEF chronic EF 10% s/p AICD BP marginal, so will continue to hold on carvedilol no AMELIA-/ARB given SURESH no furosemide given SURESH at this time echo ordered [] Patient Problems: Active and Suspected Problems (Last Reviewed 12/09/19 @ 00:[address] Devon Campbell MD) Ascending cholangitis (Acute) Septic shock (Acute) Acute renal insufficiency (Acute) Pleural effusion, right (Acute) Ascites (Acute) Obstructive jaundice (Acute) Acute cholecystitis (Acute) - Physical Exam Vitals/I&O's: Vital Signs Temp Pulse Resp BP Pulse Ox 36.2 C L 63 25 H 120/76 96 12/10/19 12:00 12/10/19 13:00 12/10/19 13:00 12/10/19 13:00 12/10/19 13:00 Oxygen Flow Rate (L/min) 2 Oxygen Delivery Method Nasal Cannula Weight: 91.2 kg Body Mass Index (BMI) 26.7 Finger Stick Blood Glucose 116 Intake and Output for Last 24 Hours 12/08/19 12/09/19 12/10/19 23:59 23:59 23:59 Intake Total 3161.25 / 3386.25 1992.33 / 2008.03 256.10 / 256.10 Output Total 800 / 800 30 / 30 Balance 3161.25 / 3386.25 1192.33 / 1209.03 226.10 / 226.10 Laboratory Results 12/09/19 17:28: WBC 15.2 H, RBC 5.58, Hgb 15.7, Hct 51.5, MCV 92.3, MCH 28.1, MCHC 30.5 L, RDW Std Deviation 55.0 H, RDW Coeff of [place] 17.2 H, Plt Count 193, MPV 11.8, Immature Gran % (Auto) 0.600, Neut % (Auto) 84.5 H, Lymph % (Auto) 4.5 L, [place] % (Auto) 10.3 H, Eos % (Auto) 0.0, Baso % (Auto) 0.1, Absolute Neuts (auto) 12.9 H, Absolute Lymphs (auto) 0.69 L, Nucleated RBC % 0.4, Differential Comment SCANNED, Diff Path Review January12/09/19 17:28: Sodium 134 L, Potassium 5.3 H, Chloride 101, Carbon Dioxide 17.0 L, Anion Gap 16 H, BUN 60 H, Creatinine 1.96 H, Estim Creat Clear Calc 32.44, Est GFR (MDRD) Af Amer 42 L, Est GFR (MDRD) Non-Af 35 L, BUN/Creatinine Ratio 30.6 H, Glucose 74, Calcium 8.9, Total Bilirubin 2.80 H, AST 795 H, ALT 568 H, Alkaline Phosphatase 291 H, Total Protein 7.1, Albumin 2.8 L, Globulin 4.3 H, Albumin/Globulin Ratio 0.7 L 12/10/19 05:00: WBC 18.5 H, RBC 5.35, Hgb 15.2, Hct 49.4, MCV 92.3, MCH 28.4, MCHC 30.8 L, RDW Std Deviation 55.0 H, RDW Coeff of [place] 16.4 H, Plt Count 175, MPV 11.6, Immature Gran % (Auto) 0.800, Neut % (Auto) 88.4 H, Lymph % (Auto) 3.0 L, [place] % (Auto) 7.0, Eos % (Auto) 0.6, Baso % (Auto) 0.2, Absolute Neuts (auto) 16.4 H, Absolute Lymphs (auto) 0.56 L, Nucleated RBC % 0.2, Differential Comment SCANNED 12/10/19 05:00: Sodium 134 L, Potassium 5.7 H, Chloride 98, Carbon Dioxide 18.0 L, Anion Gap 18 H, BUN 70 H, Creatinine 2.50 H, Estim Creat Clear Calc 25.44, Est GFR (MDRD) Af Amer 32 L, Est GFR (MDRD) Non-Af 26 L, BUN/Creatinine Ratio 28.0 H, Glucose 81, Calcium 8.8, Total Bilirubin 3.10 H, AST 4778 H, ALT 2234 H, Alkaline Phosphatase 300 H, Total Protein 7.2, Albumin 3.0 L, Globulin 4.2, Albumin/Globulin Ratio 0.7 L Current Medications Dextrose (D50w Syringe) 0 gm IV X1 PRN; Protocol PRN Reason: Hypoglycemia Enoxaparin Sodium (Lovenox) 30 mg SC DAILY [facility] Fentanyl Citrate (Sublimaze (100mcg Ampule)) 25 mcg IV Q2H PRN PRN PRN Reason: Agitation/Pain 6-10 Last Admin: 12/10/19 04:27 Dose: 25 mcg Documented by: Glucagon () 1 mg IM .X1 PRN PRN Reason: Hypoglycemia Meropenem 500 mg/ Sodium (Chloride) 60 mls @ 100 mls/hr IV Q12 MANINDER Last Infusion: 12/10/19 10:55 Dose: Infused Documented by: Sodium Chloride () 250 mls @ 15 mls/hr IV .[id number] PRN PRN Reason: Saline Flush Sodium Chloride () 250 mls @ 15 mls/hr IV .[id number] PRN PRN Reason: Additional IVPB Infusion Dextrose/Sodium Chloride () 1,000 mls @ 75 mls/hr IV .[id number] [facility] Last Admin: 12/10/19 10:55 Dose: 75 mls/hr Documented by: Melatonin (Melatonin) 3 mg PO QHS PRN PRN PRN Reason: INSOMNIA Last Admin: 12/09/19 21:10 Dose: 3 mg Documented by: Ondansetron HCl (Zofran) 4 mg IV Q6H PRN PRN PRN Reason: NAUSEA/VOMITING Last Admin: 12/10/19 04:27 Dose: 4 mg Documented by: Sodium Chloride () 10 - 40 ml IV UD PRN PRN Reason: SALINE FLUSH Last Admin: 12/09/19 22:52 Dose: 10 ml Documented by: Discharge Diet: No Restrictions Home Medications: Medications to take at Discharge [place]-3 Fatty Acids/Fish Oil [[place] 3 1,000 mg Softgel] 2 ea PO BID 10/23/15 Rivastigmine Tartrate [Rivastigmine] 4.5 mg PO BID 10/23/15 Tamsulosin HCl [Flomax] 0.4 mg PO QHS 10/23/15 esomeprazole magnesium 20 mg capsule,delayed release 20 mg PO DAILY PRN cap 09/15/18 levothyroxine 100 mcg tablet 100 mcg PO DAILY 09/15/18 Acetaminophen [Tylenol Tablet] 650 mg PO Q6H PRN PRN tab 01/10/19 atorvastatin 40 mg tablet 40 mg PO QHS #90 tab 08/10/19 Carvedilol 6.25 mg PO BID 12/08/19 Ondansetron [Zofran Odt] 4 mg PO Q4H PRN PRN 12/08/19 Primary Care Physician: Moreno Noel DO [Primary Care Provider] - Disposition: Hospice Medical Facility Minutes spent on discharge:: 40 Patient Condition:: Poor Medical Necessity - Tobacco Use Smoking Status: Never smoker Meaningful Use Info Meaningful Use Diagnoses (Choose all that apply): None applicable Inpatient E&M: 93931 Disch Hosp
[2019-12-11 10:14] LABS: Pathologist Review Reviewed
== END 2019-12-10 15:05 | disposition hospice, inpatient (51) | DRG 871 ==
LOC: ED 21:07 → ICU 21:58
PROVIDERS: Anesthesiology; Internal Medicine Critical Care Medicine; Surgery; Admitting Provider Hospitalist; Emergency Provider Emergency Medicine; PCP Family Medicine
DX: A41.9 Sepsis, unspecified organism (principal); R65.21 Severe sepsis with septic shock; I50.23 Acute on chronic systolic (congestive) heart failure; K80.32 Calculus of bile duct with acute cholangitis without obstruction; I42.8 Other cardiomyopathies; N17.9 Acute kidney failure, unspecified; R18.8 Other ascites; I47.2 Ventricular tachycardia; E86.1 Hypovolemia; I11.0 Hypertensive heart disease with heart failure; E78.5 Hyperlipidemia, unspecified; I36.1 Nonrheumatic tricuspid (valve) insufficiency; E86.0 Dehydration; I27.21 Secondary pulmonary arterial hypertension; I25.10 Atherosclerotic heart disease of native coronary artery without angina pectoris; E87.5 Hyperkalemia; J84.10 Pulmonary fibrosis, unspecified; E11.65 Type 2 diabetes mellitus with hyperglycemia; I25.5 Ischemic cardiomyopathy; I44.7 Left bundle-branch block, unspecified; E03.9 Hypothyroidism, unspecified; G30.9 Alzheimer's disease, unspecified; F02.80 Dementia in other diseases classified elsewhere, unspecified severity, without behavioral disturbance, psychotic disturbance, mood disturbance, and anxiety; Z95.810 Presence of automatic (implantable) cardiac defibrillator; Z85.51 Personal history of malignant neoplasm of bladder; I25.2 Old myocardial infarction; Z82.3 Family history of stroke; Z95.5 Presence of coronary angioplasty implant and graft; Z79.82 Long term (current) use of aspirin; Z66 Do not resuscitate; Z82.0 Family history of epilepsy and other diseases of the nervous system; Z82.49 Family history of ischemic heart disease and other diseases of the circulatory system; Z83.3 Family history of diabetes mellitus
CPT/HCPCS: 36415; 74177; 76705; 80048; 80053; 80076; 81001; 83036; 83605; 83735; 84100; 85025; 87040; 93005; 93306; 99285; J2185; J7030; P9612; Q9967; A4216; J1940; J2405; J7799